=== PATIENT | female | born 1935 | race Caucasian/White ===

== ENCOUNTER 2024-05-02 20:15 | Inpatient (IN) | payer MEDICARE, OTHER, SELFPAY ==
[2024-05-02 20:18] VITALS: PULSE 78; RESP 18; O2SAT 99; BMI 32.1
--- NOTE | 2024-05-02 20:34 | XR_ITS ---
Examination: CT brain head without contrast. 2-D sagittal coronal reconstructions Date and time of exam:May 02, 2024 at 2041 hrs. Indications: Ground-level fall today with injury to the head, head pain CTDI: vol (mGy):47.8 DLP: (mGycm):994 Technique: Multiple CT axial sections of the brain have been obtained, 5 mm slice thickness. Contrast has not been administered. 2-D sagittal, coronal reconstructions have been obtained Low dose protocols were performed. One or more of the following dose reduction techniques were used; automated exposure control, adjustment of the mA and/or KV according to patient size, use of iterative reconstruction technique. Findings: No significant ventricular enlargement. Intra-axial or extra-axial hemorrhage density is not seen. No mass effect or midline shift Basal cisterns are not remarkable. Fourth ventricle is midline. Cranial vault intact. Impression: Negative for acute hemorrhage, mass effect or midline shift
--- NOTE | 2024-05-02 20:34 | XR_ITS ---
Examination:Right hip AP, lateral, AP pelvis 3 views Technique: Hip AP lateral, AP pelvis, 3 views Exam date and time:May 02, 2024 2101 hrs. Indications: Injury to the right hip after falling today, right hip pain. Findings: Acute angulated intertrochanteric fracture right hip Bones of the pelvis intact Left hip bipolar hemiarthroplasty satisfactory alignment Impression: Acute angulated intertrochanteric fracture right hip.
--- NOTE | 2024-05-02 20:34 | XR_ITS ---
Examination: CT cervical spine without contrast 2-D sagittal reconstructions 2-D coronal reconstructions 3-D reconstructions. Exam date and time:May 02, 2024 2041 hrs. Indications: Ground-level fall today with injury to the neck, neck pain CTDI:vol (mGy) 7.52 DLP: (mGycm) 147 Technique: Multiple 2 mm axial sections of the cervical spine have been obtained. The coronal and sagittal reconstructions have been obtained. 3-D reconstructions have been obtained. Low dose protocols were performed. One or more of the following dose reduction techniques were used; automated exposure control, adjustment of the mA and/or KV according to patient size, use of iterative reconstruction technique. Findings: Axial sections demonstrate intact base of the skull. Mild anterolisthesis C3 on C4, fusion C4-C5, grade 1 anterolisthesis C7 on T1 C1 exhibit satisfactory relationship to the odontoid. No acute cervical vertebral body fracture seen. Alignment posterior spinous processes satisfactory. Impression: No acute cervical fracture.
--- NOTE | 2024-05-02 20:34 | EKG_ITS ---
[facility] Test Date: 2024-05-02 Pat Name: KARAN JACINTO Department: Room: - Gender: Female Malariologist: : [id number] Requested By: Fred Padron Order Number: [id number] Reading MD: Fred Padron Measurements Intervals [place] Rate: 66 P: 91 TX: 163 QRS: 10 QRSD: 98 T: 62 QT: 414 QTc: 435 Interpretive Statements SINUS RHYTHM LEFT VENTRICULAR HYPERTROPHY AND ST-T CHANGE [VOLTAGE CRITERIA PLUS ST/T ABNORMALITY] Compared to ECG 06/18/2020 13:50:13 ST (T wave) deviation now present Supraventricular rhythm no longer present Myocardial infarct finding no longer present /store/S0/[id number]/ecg/[id number].pdf
--- NOTE | 2024-05-02 20:34 | XR_ITS ---
Examination: AP chest single view Technique one AP portable upright chest single view Exam date and time: May 02, 2024 2105 hrs. Comparison December 14, 2017 Indications: Ground-level fall today with injury to the chest, chest pain Findings: No pneumothorax Extensive interstitial disease throughout the lungs Mild to moderate enlargement cardiac contour Severe osteopenia Old fracture right humeral neck Impression: No pneumothorax Clavicles ribs appear intact Extensive abnormal interstitial disease throughout the lungs, differential is extensive include bronchitis, pneumonia, pulmonary fibrosis
[2024-05-02 20:47] LABS: Collection Type, Urine Clean Catch
--- NOTE | 2024-05-02 20:47 | PD.EDADULT ---
ED General RME/HPI General Chief complaint: Fall Stated complaint: FELL, RIGHT HIP INJURY Time Seen by Provider: 05/02/24 20:34 Arrival date/time: 05/02/24 20:15 CC: Right hip pain HPI status post fall, patient presents the ER via EMS report no blood thinners. The patient is mildly demented does not recall the event. EMS report family members stating no LOC. Patient was lifted up by family medicine placed in a chair, then with difficulty was moved from there via EMS to [facility] and transported here. Patient given 50 mcg of fentanyl and route for right hip pain. Patient is awake alert oriented to self. Nontoxic-appearing not in any acute distress. When supine and immobile no pain, however when I asked her to move her legs she is unable to secondary to severe pain. Related Data Home Medications ?Medication ?Instructions ?Recorded ?Confirmed donepezil 5 mg tablet (Aricept) 10 mg PO HS 12/16/18 06/18/20 cholecalciferol (vitamin D3) 125 125 mcg PO HS 06/18/20 06/18/20 mcg (5,000 unit) tablet (Vitamin D3) ferrous fumarate-ascorbic 1 tab PO HS 06/18/20 06/18/20 acid-ascorbate sod 65 mg iron-125 mg tablet metoprolol tartrate 25 mg tablet 25 mg PO HS 06/18/20 06/18/20 [id number]-bzj-yjuwy acid 0.4 1 tab PO HS 06/18/20 06/18/20 mg-lycopene 300 mcg-lutein 250 mcg tablet (Centrum Silver) Allergies Allergy/AdvReac Type Severity Reaction Status Date / Time No Known Allergies Allergy Verified 06/19/20 15:02 Review of Systems Review of Systems Narrative Review of Systems: GEN: No fever, no chills, no weight loss EYES: No discharge, no visual changes, no pain HEENT: No ear pain, no congestion, no sore throat PULM: No shortness of breath, no cough, no congestion CV: No chest pain, no dyspnea on exertion, no palpitations GI: No nausea, no vomiting, no diarrhea, no pain, no constipation : No frequency, no urgency, no dysuria MUSC/SKEL: + joint pain, no back pain SKIN: No rash PSYCH: No hallucinations, no depression HEME/LYMPH: No easy bleeding or bruising tendencies NEURO: No weakness, no headache Past Medical History Past Medical History NEUROLOGIC: Positive Neurological Disorders and Cerebrovascular Accident (1994); Negative Transient Ischemic Attacks (TIA) or Seizures CARDIAC: Positive Cardiac Disorders, Heart Murmur, Hypercholesterolemia and Hypertension; Negative Congestive Heart Failure RESPIRATORY: Negative Chronic Obstructive Pulmonary Disease (COPD), Asthma or Pneumonia GASTROINTESTINAL: Positive Gastrointestinal Disorders, Gall Bladder Disease (HAD SURGERY), Hiatal Hernia (HAD SURGERY) and Gastroesophageal Reflux Disease (MILD); Negative Hepatitis GENITOURINARY: Negative Genitourinary Disorders or Renal Disease REPRODUCTIVE: Positive Previous Pregnancies (X1) MUSCULOSKELETAL: Positive Musculoskeletal Disorders, Arthritis, Osteoporosis and Fractures (FUSED ANKLE. WRIST, HIP SURGERIES) ENT: Positive Cataracts (BILATERAL) ENDOCRINE: Negative Endocrine Disorders, Diabetes Mellitus Type 1 or Diabetes Mellitus Type 2 HEMATOLOGIC: Positive Blood Disorders and Anemia; Negative Sickle Cell Disease or Clotting Problems OTHER HISTORY: Positive Falls (06/10/20), Chicken Pox, Measles, Mumps and Rubella (Armenian Measles); Negative Autoimmune Disease, Blood Transfusions, Blood Transfusion Reaction, Anesthesia Reactions, Organ Transplant or Cancer Family History FAMILY HISTORY: Positive Family Cardiac Disorders, Family Gastrointestinal Problems, Family Cancer and Family Surgery; Negative Family Psychiatric Problems, Family Respiratory Disorders or Family Anesthesia Reaction Surgical History SURGICAL: Positive Joint Replacement, Open Reduction Internal Fixation (ANKLE, WRIST) and Hysterectomy; Negative Endocrine Surgery or Organ Transplant Social History SMOKING STATUS: Never smoker ED Exam Narrative Physical exam: [General: Not in any acute distress Head normocephalic HEENT: Within acceptable limits Neck is supple nontender Chest equal chest rise nontender to palpation Respiratory: Clear to auscultation no wheezes crackles or rubs CV: Rate rhythm is regular no murmurs rubs or clicks Abdomen is soft nontender no masses positive bowel sounds all 4 quadrants Back: No CVA tenderness no spinous process tenderness from cervical spine thoracic and lumbar spine Skin: Intact no petechiae rash induration ulceration or crepitus Extremities: Upon visual assessment, right leg is laterally rotated slightly shorter than the left leg. Pain with palpation of the groin area of the right hip. Cap refill in the lower extremity less than 2 seconds neurosensory intact. Moving all other extremities against resistance cap refill less than 2 seconds neurosensory intact Neuro: Awake alert oriented x2, person and place, Glascow coma 15 no focal deficits] Course Quality Measures none Orders Category Date Time Status COVID-19 Screening Questionnaire NOW Care 05/02/24 21:05 Active EKG (ED ONLY) *Do not use* NOW Care 05/02/24 20:34 Completed Holley [Urinary Catheter] QS Care 05/02/24 20:36 Active Saline [Insert IV] NOW Care 05/02/24 20:36 Active Consult to Orthopedic Stat Cons 05/02/24 21:[address] cervical spine wo con Stat Exams 05/02/24 20:[address] head/brain wo con Stat Exams 05/02/24 20:34 Completed EKG (ED Only) Stat Exams 05/02/24 20:34 Draft XR chest 1V Stat Exams 05/02/24 20:34 Taken XR femur RT 2V Stat Exams 05/02/24 21:49 Ordered XR hip RT w pelvis 2-3V Stat Exams 05/02/24 20:34 Taken B-Type Natriuretic Peptide Stat Lab 05/02/24 20:44 Completed CBC Stat Lab 05/02/24 20:44 Completed Comprehensive Metabolic Panel Stat Lab 05/02/24 20:44 Results Drug Screen,Urine Stat Lab 05/02/24 20:45 Completed LDH (Lactate Dehydrogenase) Stat Lab 05/02/24 20:44 Results Magnesium Stat Lab 05/02/24 20:44 Results Partial Thromboplastin Time Stat Lab 05/02/24 20:44 Completed Prothrombin Time with INR Stat Lab 05/02/24 20:44 Completed Troponin I Stat Lab 05/02/24 20:44 Results Urinalysis Stat Lab 05/02/24 20:45 Completed Morphine Inj Med 05/02/24 20:51 Discontinued 4 mg IVP X1 ONE Ondansetron Inj [Zofran Inj] Med 05/02/24 20:51 Discontinued 4 mg IV X1 ONE Sodium Chloride 0.9% 1000 ml [Ns] 1,000 ml Med 05/02/24 20:51 Active IV 60 mls/hr hydrALAZINE INJ [Apresoline Inj] Med 05/02/24 20:46 Discontinued 10 mg IV X1 ONE Vital Signs Vital signs: Vital Signs Temperature 98.9 F 05/02/24 21:00 Pulse Rate 76 05/02/24 21:00 Respiratory Rate 22 H 05/02/24 21:00 Blood Pressure 226/134 H 05/02/24 21:00 Pulse Oximetry (%) 94 L 05/02/24 21:00 Oxygen Delivery Method Room Air 05/02/24 21:00 [facility] Patient data External records reviewed:: [place] previous records and EMS form Clinical information provided by:: patient and EMS Social determinants that could affect healthcare access:: none Patient has the following chronic illnesses:: Hypertension dementia How is presenting disease/condition affected by chronic disease/condition?: uneffected by Evaluation data The following diagnostics were reviewed and interpreted by me:: lab results, radiology exam(s) and EKG tracing(s) Lab and/or radiology exams considered but not ordered:: EKG performed at 2119 shows a ventricular rate of 6 6 [place] interval 163 QRS of 9 8 QTc of 427 this is sinus rhythm. Right hip shows intertrochanteric fracture of the right hip. CT head and C-spine as interpreted by me read by radiology as negative for any acute finding. CBC shows no acute leukocytosis anemia thrombocytopenia Coags within acceptable limits CMP shows no acute electrolyte imbalances renal impairment glucose at 129 no transaminitis or T. bili elevation Troponin is negative BNP is 563 Urine is negative for UTI. UDS is negative Interpretation Summary: Patient is intertrochanteric fracture of the right femur. Patient's case discussed with Dr. Schaefer who agrees to consult on the patient. Patient's case discussed with resident for Dr. Braga, attending, who agrees to accept the patient for admission Medications Medications considered but not ordered:: None Medication administrations:: Medication Administration History Sodium Chloride (Ns) 1,000 mls @ 60 mls/hr IV .[id number] IVONNE Stop: 06/01/24 20:50 Last Admin: 05/02/24 21:22 Dose: 60 mls/hr Documented By: JAMAR Discontinued Medications Hydralazine HCl (Hydralazine Inj 20 Mg/Ml Vial) 10 mg IV X1 ONE Stop: 05/02/24 20:47 Last Admin: 05/02/24 21:14 Dose: 10 mg Documented By: JAMAR Comments: Morphine Sulfate (Morphine Sulf Inj 10 Mg/Ml Vial) 4 mg IVP X1 ONE Stop: 05/02/24 20:52 Last Admin: 05/02/24 21:15 Dose: 4 mg Documented By: JAMAR Ondansetron HCl (Ondansetron Inj 2 Mg/Ml Inj 2 Ml) 4 mg IV X1 ONE; Protocol Stop: 05/02/24 20:52 Last Admin: 05/02/24 21:15 Dose: 4 mg Documented By: EE None Consultations Consultation(s) initiated? (list below): Yes Consultation #1 (Physician, Specialty, Details): divine Time: 21:53 Diagnosis Differential Diagnosis ED Complaint MDM: Acetabular fracture intertrochanteric fracture femoral neck fracture Most likely diagnosis given after review of the tests above:: Intertrochanteric femoral fracture Admission Indicated Admission indicated?: indicated Explain why admission is indicated or not indicated:: Quires further orthopedic intervention Admission Request Was there a request for admission?: No Disposition Plan Disposition Plan: Admit Medical Decision Making Differential Diagnosis Differential Diagnosis: Acetabular fracture intertrochanteric fracture femoral neck fracture Lab Data 05/02/24 20:44 05/02/24 20:44 Labs: Lab Results 05/02/24 05/02/24 Range/Units 20:44 20:45 WBC 7.5 (3.6-11.0) Thou/mm3 RBC 4.44 (4.00-5.20) Miln/mm3 Hgb 13.9 (12.0-16.0) g/dL Hct 42.1 (36.0-46.0) % MCV 95 (80-100) fL MCH 31.3 (25.0-35.0) pg MCHC 33.0 (31.0-37.0) g/dl RDW Std Deviation 44.2 (36.4-46.3) fL Plt Count 201 (140-440) Thou/mm3 Neut % (Auto) 81 H (37-80) % Lymph % (Auto) 12 (10-50) % [place] % (Auto) 6 (0-12) % Eos % (Auto) 1 (0-10) % Baso % (Auto) 1 (0-2.5) % Neut # (Auto) 6.1 (1.8-7.7) Thou/mm3 Lymph # (Auto) 0.9 L (1.0-4.8) Thou/mm3 [place] # (Auto) 0.4 (0.0-0.8) Thou/mm3 Eos # (Auto) 0.1 (0.0-0.5) Thou/mm3 Baso # (Auto) 0.0 (0.0-0.2) Thou/mm3 Immature Gran # (Auto) 0.04 H (0.00-0.00) Thou/mm3 Absolute Nucleated RBC 0.00 (0.00-0.00) Thou/mm3 Immature Gran % 1 H (0-0) % Nucleated RBC % 0 (0) /100 WBC PT 11.0 (9.0-12.2) Seconds INR 1.0 (0.9-1.3) APTT 23.9 (22.0-36.0) Seconds Sodium 138 (136-145) mMol/L Potassium 4.2 (3.4-5.1) mMol/L Chloride 100 (98-107) mMol/L Carbon Dioxide 28.8 (20.0-31.0) mMol/L Anion Gap 9 (7-16) BUN 16 (9-23) mg/dL Creatinine 0.9 (0.6-1.3) mg/dL Estim Creat Clear Calc 46.3 L (>60) mL/min eGFR > 60 (60 - ) See Note BUN/Creatinine Ratio 18 (12-20) Ratio Glucose 129 H (74-106) mg/dL Calculated Osmolality 278 (275-295) Calcium 9.7 (8.3-10.6) mg/dL Corrected Calcium 9.7 (8.5-10.1) mg/dL Magnesium 2.0 (1.6-2.6) mg/dL Total Bilirubin 0.4 (0.3-1.2) mg/dL AST 25 (0-34) U/L ALT 16 (10-49) U/L Alkaline Phosphatase 69 (46-116) U/L Troponin I < 0.020 (0.0-0.045) ng/mL B-Natriuretic Peptide 563 H* (0-100) pg/mL Total Protein 7.5 (5.7-8.2) gm/dL Albumin 4.2 (3.4-4.8) gm/dL Globulin 3.3 (2.3-3.5) gm/dL Albumin/Globulin Ratio 1.3 (1.2-2.2) Ur Collection Type Clean Catch Urine Color Lt-Yellow (Lt Yel-Yel) Urine Clarity Turbid A (Clear/Hazy) Urine pH 7.5 H (5.0-7.0) Ur Specific [place] 1.016 (1.001-1.035) Urine Protein 1+ A (Neg - Trace) Urine Glucose (UA) Negative (Negative) Urine Ketones Negative (Negative) Urine Blood Negative (Negative) Urine Nitrite Positive (Negative) Urine Bilirubin Negative (Negative) Urine Urobilinogen (Auto) Negative (0.0-1.0) mg/dL Ur Leukocyte Esterase Negative (Negative) Urine RBC 7 H (0-3) /hpf Urine WBC 4 (0-5) /hpf Ur Squamous Epith Cells 1 (0-5) /hpf Urine Bacteria None (None) Urine Opiates Screen Negative (Negative) Urine Fentanyl Screen Negative (Negative) Ur Barbiturates Screen Negative (Negative) U Amphetamin/Meth Scrn Negative (Negative) U Benzodiazepines Scrn Negative (Negative) U Cocaine Metab Screen Negative (Negative) U Marijuana (THC) Screen Negative (Negative) Discharge Plan Plan Patient Disposition: Other Care w/in Hosp ([facility]) Patient condition on transfer: Stable Prescriptions/Referrals Prescriptions/Med Rec: No Action donepezil [Aricept] 5 mg Tablet 10 mg PO HS metoprolol tartrate 25 mg Tablet 25 mg PO HS Centrum Silver 0.4-300-250 mg-mcg-mcg Tablet 1 tab PO HS cholecalciferol (vitamin D3) [Vitamin D3] 125 mcg (5,000 unit) Tablet 125 mcg PO HS iron fum-vit C-ascorbate sod 65 mg iron- 125 mg Tablet 1 tab PO HS Referrals: No Primary/Family,Physician [Primary Care Provider] - In 1 week Problem List Clinical Impression: Hip fracture Patient/Caregiver Discharge Instructions Print Language: Montserratian Stand Alone Forms: Rosita Award Info., Patient Portal Info Letter PA/JALOUSIE INSTALLER Supervising Physician PA/JALOUSIE INSTALLER Supervising Physician: Fred Barcenas ENP
[2024-05-02 20:54] LABS: Bilirubin,Urine Negative (Negative); Blood,Urine Negative (Negative); Clarity,Urine Turbid (Clear/Hazy); Color,Urine Lt-Yellow (Lt Yel-Yel); Glucose, Urine Negative (Negative); Ketones,Urine Negative (Negative); Leukocyte Esterase,Urine Negative (Negative); Nitrite,Urine Positive (Negative); PH,Urine 7.5 (5.0-7.0); Protein,Urine 1+ (Neg - Trace); RBC,Urine 7 /hpf (0-3); Specific Gravity,Urine 1.016 (1.001-1.035); Squamous Epithelial Cell,Urine 1 /hpf (0-5); Urobilinogen,Urine Negative mg/dL (0.0-1.0); WBC,Urine 4 /hpf (0-5)
[2024-05-02 20:58] LABS: Amphetamine/Methamp Scrn,U Negative (Negative); Barbiturate Screen,Urine Negative (Negative); Benzodiazepines Screen,Urine Negative (Negative); Benzoylecgonine Screen, Ur Negative (Negative); Fentanyl Screen,Urine Negative (Negative); Opiate Screen,Urine Negative (Negative); THC Screen,Urine Negative (Negative)
[2024-05-02 21:00] VITALS: BP 226/134; PULSE 76; RESP 22; TEMP 37.2; O2SAT 94
[2024-05-02 21:07] LABS: Basophils % (Auto) 1 % (0-2.5); Eosinophils # (Auto) 0.1 Thou/mm3 (0.0-0.5); Eosinophils % (Auto) 1 % (0-10); Hematocrit 42.1 % (36.0-46.0); Hemoglobin 13.9 g/dL (12.0-16.0); Immature Granulocytes % (Auto) 1 % (0-0); Immature Granulocytes Auto 0.04 Thou/mm3 (0.00-0.00); Lymphocytes # (Auto) 0.9 Thou/mm3 (1.0-4.8); Lymphocytes % (Auto) 12 % (10-50); Mean Corpuscular Hemoglobin 31.3 pg (25.0-35.0); Mean Corpuscular Volume 95 fL (80-100); Monocytes # (Auto) 0.4 Thou/mm3 (0.0-0.8); Monocytes % (Auto) 6 % (0-12); Neutrophils # (Auto) 6.1 Thou/mm3 (1.8-7.7); Neutrophils % (Auto) 81 % (37-80); Nucleated Red Blood Cell % 0 /100 WBC (0); Platelet Count 201 Thou/mm3 (140-440); RDW Standard Deviation 44.2 fL (36.4-46.3); Red Blood Count 4.44 Miln/mm3 (4.00-5.20); White Blood Count 7.5 Thou/mm3 (3.6-11.0)
[2024-05-02 21:14] VITALS: BP 212/109; PULSE 65
[2024-05-02] MEDS: hydrALAZINE INJ 20 MG/ML VIAL 10 MG IV (21:14)
[2024-05-02] MEDS: ONDANSETRON INJ 2 MG/ML INJ 2 ML 4 MG IV (21:15)
[2024-05-02] MEDS: MORPHINE SULF INJ 10 MG/ML VIAL 4 MG IVP (21:15)
[2024-05-02] MEDS: SODIUM CHLORIDE 0.9% 1000 ML 1,000 ML 60 ML IV (21:22)
[2024-05-02 21:27] LABS: Partial Thromboplastin Time 23.9 Seconds (22.0-36.0)
[2024-05-02 21:32] LABS: Alanine Aminotransferase 16 U/L (10-49); Albumin, Serum 4.2 gm/dL (3.4-4.8); Albumin/Globulin Ratio 1.3 (1.2-2.2); Alkaline Phosphatase 69 U/L (46-116); Anion Gap 9 (7-16); Aspartate Amino Transferase 25 U/L (0-34); B-Type Natriuretic Peptide 563 pg/mL (0-100); BUN/Creatinine Ratio 18 Ratio (12-20); Bilirubin,Total 0.4 mg/dL (0.3-1.2); Blood Urea Nitrogen 16 mg/dL (9-23); Calcium 9.7 mg/dL (8.3-10.6); Calcium (Corrected) 9.7 mg/dL (8.5-10.1); Carbon Dioxide 28.8 mMol/L (20.0-31.0); Chloride 100 mMol/L (98-107); Creatinine (Component) 0.9 mg/dL (0.6-1.3); Estimated Creatinine Clearance 46.3 mL/min (>60); Globulin 3.3 gm/dL (2.3-3.5); Glucose 129 mg/dL (74-106); Osmolality,Calculated 278 (275-295); Potassium 4.2 mMol/L (3.4-5.1); Sodium 138 mMol/L (136-145); Total Protein 7.5 gm/dL (5.7-8.2); Troponin I < 0.020 ng/mL (0.0-0.045); eGFR > 60 See Note
--- NOTE | 2024-05-02 21:49 | XR_ITS ---
Examination: Right femur 2 views Technique one AP lateral right femur 2 views Exam date and time: May 02, 2019 9:52 PM Indications: Patient fell today with injury to the right leg, right femur pain Findings: Acute angulated intertrochanteric fracture right hip Severe osteopenia Shaft of the femur intact Impression: Acute intertrochanteric fracture right hip
--- NOTE | 2024-05-02 21:56 | XR_ITS ---
Examination: CT pelvis without intravenous contrast. 2-D sagittal and coronal reconstructions. Date and time of exam:May 02, 2024 10:40 PM Indications: Patient fell today with injury to the head, right hip pain CTDI: vol (mGy) :10.3 DLP: (mGycm) : 382 Technique: Multiple 3 mm axial sections of the pelvis have been obtained with the 64 slice high resolution scanner. 2-D sagittal and coronal reconstructions. Low dose protocols were performed. One or more of the following dose reduction techniques were used; automated exposure control, adjustment of the mA and/or KV according to patient size, use of iterative reconstruction technique. Findings: Air distended rectosigmoid Urinary bladder contracted around a Holley catheter Acute fracture right hip surgery the greater trochanter with angulation at the fracture site No offset of the lesser trochanter Fracture anterior right inferior pubic ramus and nondisplaced fracture right superior pubic ramus near the symphysis No hip dislocation Severe osteopenia Bones of the pelvis intact Impression: Acute right hip fracture Fractures superior inferior right pubic rami
--- NOTE | 2024-05-02 21:59 | XR_ITS ---
Examination: Right hip lateral single view Technique: Lateral right hip single view Exam date and time: May 02, 2024 at 2102 hrs. Indications: Patient fell today with injury to the head, head pain. Findings: Acute intertrochanteric fracture right hip No hip dislocation Impression: Acute intertrochanteric fracture right hip
[2024-05-02 22:15] VITALS: BP 181/97; PULSE 79; RESP 18; O2SAT 93
--- NOTE | 2024-05-02 22:41 | PD.RESHP ---
Documentation for date of: 05/02/24 HPI History of Present Illness History of present illness: 89-year-old female with past medical history of HTN, dementia presenting with right hip pain after a ground-level fall. The fall occurred this afternoon as she was walking around her kitchen. She doesn't remember falling but cannot recall specific details of the event. However, she does not recall tripping over an object, being dizzy or lightheaded, or fainting. She did not lose consciousness. She called for her son who came to an assisted her from the floor. Subsequently she develop right pain and decided to come in to the ED. At baseline, she is semiindependent, able to complete most of her chores including getting around the house by herself. However, sometimes, on certain days, she requires assistance by her son. She is feeling more tired than usual. Denies head trauma, headache, seizures, loc, fever, chills, chest pain, sob, palpitations, GI symptoms including abdominal pain or n/v/d/c, or urinary symptoms. She has mild dementia for which she has trouble recalling recent events but overall altered her long-term memory and baseline cognitive function is intact. She follows up with primary for blood pressure. States her blood pressure usually runs around 160/90 to 180/100 with medications. She is currently on METOPROLOL and LISINOPRIL as listed below. In the past. She has tried different doses and started antihypertensives in the past but appears to be sensitive to higher dose with blood pressure dropping substantially. ED COURSE: Afebrile, BP 226/134, HR 76, RR 22, satting 94% on room air. CBC mostly benign without leukocytosis, hemoglobinopathy and has normal platelets. Normal coag panel. Chemistry significant for GLUCOSE 129, lactic D 291, BNP 563. Orthopedic, Dr. Patton was consulted who recommended admission for surgical intervention tomorrow 05/03. PMHx: HTN, dementia. PSHx: Multiple orthopedic interventions for bilateral wrist fracture and left hip fracture. MEDS: LISINOPRIL 40 mg, METOPROLOL succinate 25 mg BID, THERACRAN 75 mg daily, DONEPEZIL 10 mg HS. ALLERGIES: NKA. FHx: Nonsignificant. SH: Denies alcohol, tobacco or drug use. Exam Vital Signs Temp Pulse Resp BP Pulse Ox O2 Del Method 98.9 F 79 18 181/97 H 93 L Room Air 05/02/24 21:00 05/02/24 22:15 05/02/24 22:15 05/02/24 22:15 05/02/24 22:15 05/02/24 22:15 Narrative Exam GENERAL Normal-appearing elderly female, no apparent distress. HEENT NCAT.?JAYRO. Oral mucosa is moist. Patent Nares NECK Supple, nontender, no thyromegaly, no meningismus, no JVD, no step offs CHEST RRR, grade 2 systolic murmur, no gallops or rubs. CTAB, no w/r/r. Symmetrical chest rise. No intercostal subcostal retraction Atraumatic, nontender, no crepitus, symmetrical expansion. ABDOMEN Soft, flat, nontender. No guarding/rebound tenderness/masses. Bowel sounds presents EXTREMITIES No edema/cyanosis.? Tenderness over right hip, no overlying skin changes or laceration, no bony deformity, limited ROM secondary to pain, intact sensation. SKIN Warm and dry, no jaundice/rashes. NEUROMUSCULAR No lumbar or midline, no CVA, no paraspinal muscle spasm or tenderness. SMITH x4, CN II-XII grossly intact. No focal neurologic deficits. PSYCHIATRY Normal mood and affect, cooperative, no SI or HI or hallucinations. Results: Labs 05/02/24 20:44 05/02/24 20:44 Labs: Short CBC 05/02/24 Range/Units 20:44 WBC 7.5 (3.6-11.0) Thou/mm3 Hgb 13.9 (12.0-16.0) g/dL Hct 42.1 (36.0-46.0) % Plt Count 201 (140-440) Thou/mm3 BMP 05/02/24 20:44 Sodium 138 Potassium 4.2 Chloride 100 Carbon Dioxide 28.8 BUN 16 Creatinine 0.9 Glucose 129 H Calcium 9.7 Cardiac Enzymes 05/02/24 Range/Units 20:44 Troponin I < 0.020 (0.0-0.045) ng/mL Liver Function 05/02/24 Range/Units 20:44 Total Bilirubin 0.4 (0.3-1.2) mg/dL AST 25 (0-34) U/L ALT 16 (10-49) U/L Alkaline Phosphatase 69 (46-116) U/L Albumin 4.2 (3.4-4.8) gm/dL Urine 05/02/24 Range/Units 20:45 Urine Color Lt-Yellow (Lt Yel-Yel) Urine Clarity Turbid A (Clear/Hazy) Urine pH 7.5 H (5.0-7.0) Ur Specific [place] 1.016 (1.001-1.035) Urine Protein 1+ A (Neg - Trace) Urine Glucose (UA) Negative (Negative) Quality Measures Quality Measures none Advance care planning discussed with:: patient and significant other Medications Home Medications and Allergies Home Medications ?Medication ?Instructions ?Recorded ?Confirmed ?Type donepezil 5 mg tablet (Aricept) 10 mg PO HS 12/16/18 06/18/20 History cholecalciferol (vitamin D3) 125 125 mcg PO HS 06/18/20 06/18/20 History mcg (5,000 unit) tablet (Vitamin D3) ferrous fumarate-ascorbic 1 tab PO HS 06/18/20 06/18/20 History acid-ascorbate sod 65 mg iron-125 mg tablet metoprolol tartrate 25 mg tablet 25 mg PO HS 06/18/20 06/18/20 History bxmrrdic-fdy-sjgsc acid 0.4 1 tab PO HS 06/18/20 06/18/20 History mg-lycopene 300 mcg-lutein 250 mcg tablet (Centrum Silver) Allergies Allergy/AdvReac Type Severity Reaction Status Date / Time No Known Allergies Allergy Verified 06/19/20 15:02 Visit Medications Sodium Chloride (Ns) 1,000 mls @ 60 mls/hr IV .[id number] [facility] Stop: 06/01/24 20:50 Last Admin: 05/02/24 21:22 Dose: 60 mls/hr Discontinued Medications Hydralazine HCl (Hydralazine Inj 20 Mg/Ml Vial) 10 mg IV X1 ONE Stop: 05/02/24 20:47 Last Admin: 05/02/24 21:14 Dose: 10 mg Morphine Sulfate (Morphine Sulf Inj 10 Mg/Ml Vial) 4 mg IVP X1 ONE Stop: 05/02/24 20:52 Last Admin: 05/02/24 21:15 Dose: 4 mg Ondansetron HCl (Ondansetron Inj 2 Mg/Ml Inj 2 Ml) 4 mg IV X1 ONE; Protocol Stop: 05/02/24 20:52 Last Admin: 05/02/24 21:15 Dose: 4 mg Assessment & Plan Plan In summary: 89 year-old female with PMHx of HTN, dementia, admitted for right hip fracture following GLF. Appreciate recommendations from ORTHO team. Intertrochanteric fracture right hip Presenting following ground-level fall that happened this afternoon the kitchen. She does not remember event clearly. However denies LOC, head trauma, dizziness, lightheadedness prior, leading or during the event. XR right femur showed intertrochanteric fracture of right hip. CT showed acute right hip fracture of superior inferior right pubic rami. Hx multiple fracture including left hip, fabián wrists. Ambulates semi-indep at home, sometime requires assistance from her son. No obvious bony deformity on laceration on exam. ? Pending XR right hip ? Pain control ? Continue NS at 75 cc/H ? ORIF with Dr. Glass on 04/27 6 in the AM. HTN Blood pressure usually runs around 160/90 to 180/100 with a 2 meds that she is on. BP historically sensitive to med changes, PCP in agreement with current regiment and current BP range. ? Continue home LISINOPRIL 40 mg daily ? Continue home METOPROLOL succinate 25 mg BID Elevated BNP BNP 563 on admission. No history of heart failure. No signs or symptoms of fluid overload, clear lung exam, no LE edema or swelling bilaterally. Most likely related to chronically elevated blood pressure. ? Consider echocardiogram Dementia, mild ? Continue home episodes of milligram HS Overactive bladder ? Continue home VIBEGRON 10 mg HS Health maintenance Diet: NPO GI prophylaxis: PROTONIX DVT prophylaxis: SCD Antibiotics: None CODE STATUS: Full code Disposition: ORIF with Dr. Glass on 05/03. Patient case was discussed with attending, Daniel Braga MD. Dori Monaco DO PGYI Attending Provider Attestation/Addendum I attest that I was physically present for the evaluation, physical examination, lab and imaging review of the patient with the residents. I discussed the case with the residents and agree with the findings and plans of care as documented above. Patient is an 89 years old female with past medical history of hypertension, dementia who presented to the ED following a ground-level fall with complaint of right hip pain. Family at bedside stated that patient did not hit her head. Patient cannot recall specific details of the fall. As per the family, patient can complete most of her ADLs herself but requires some help due to her dementia. She also stated that patient's blood pressure usually runs high and has been hard to control, had a blood pressure of 180s systolic at home today. In the ED, she was found to have blood pressure of 226/134, LDH 291 and BNP 563. X-ray hip was obtained, which showed intertrochanteric fracture of right hip. Orthopedics was contacted by ED, who recommended admission for surgical procedure. We will admit patient for management of intertrochanteric fracture of right hip, starting with IV analgesics and mild hydration. We will resume her home antihypertensives and continue to monitor closely. Bradford Braga MD
[2024-05-02 22:46] LABS: LDH (Lactate Dehydrogenase) 291 U/L (120-246)
[2024-05-02 23:54] VITALS: BP 165/88; PULSE 80
[2024-05-02] MEDS: oxyCODONE/APAP 5/325 TABLET 1 TAB PO (23:54)
[2024-05-02] MEDS: METOPROLOL SUCCINATE XL 25 MG TABCR PO (23:54)
[2024-05-02] MEDS: SODIUM CHLORIDE 0.9% 1000 ML 1,000 ML 75 ML IV (23:54)
[2024-05-03] VITALS (15 sets, daily range): BP systolic 130–179; BP diastolic 72–96; PULSE 63–75; RESP 12–18; TEMP 36.1–36.6; O2SAT 93–100; BMI 22.4
--- NOTE | 2024-05-03 00:30 | PC.NURSE ---
Pt came from ED, alert and oriented, has a villanueva draining well with bright yellow urine. Pt not in pain at this time. Pt advised to keep NPO for possible surgery in AM, verbalizes understanding.
[2024-05-03 06:24] LABS: Basophils % (Auto) 0 % (0-2.5); Eosinophils % (Auto) 0 % (0-10); Hematocrit 37.5 % (36.0-46.0); Hemoglobin 12.7 g/dL (12.0-16.0); Immature Granulocytes % (Auto) 0 % (0-0); Immature Granulocytes Auto 0.02 Thou/mm3 (0.00-0.00); Lymphocytes # (Auto) 0.4 Thou/mm3 (1.0-4.8); Lymphocytes % (Auto) 5 % (10-50); Mean Corpuscular HGB Conc 33.9 g/dl (31.0-37.0); Mean Corpuscular Hemoglobin 31.7 pg (25.0-35.0); Mean Corpuscular Volume 94 fL (80-100); Monocytes # (Auto) 0.3 Thou/mm3 (0.0-0.8); Monocytes % (Auto) 3 % (0-12); Neutrophils # (Auto) 8.3 Thou/mm3 (1.8-7.7); Neutrophils % (Auto) 92 % (37-80); Nucleated Red Blood Cell % 0 /100 WBC (0); Platelet Count 164 Thou/mm3 (140-440); RDW Standard Deviation 44.1 fL (36.4-46.3); Red Blood Count 4.01 Miln/mm3 (4.00-5.20)
[2024-05-03 06:37] LABS: Partial Thromboplastin Time 25.4 Seconds (22.0-36.0); Prothrombin Time 11.4 Seconds (9.0-12.2)
[2024-05-03 06:48] LABS: Alanine Aminotransferase 15 U/L (10-49); Albumin, Serum 3.8 gm/dL (3.4-4.8); Albumin/Globulin Ratio 1.4 (1.2-2.2); Alkaline Phosphatase 60 U/L (46-116); Anion Gap 8 (7-16); Aspartate Amino Transferase 21 U/L (0-34); BUN/Creatinine Ratio 24 Ratio (12-20); Bilirubin,Total 0.5 mg/dL (0.3-1.2); Blood Urea Nitrogen 17 mg/dL (9-23); Calcium 9.2 mg/dL (8.3-10.6); Calcium (Corrected) 9.4 mg/dL (8.5-10.1); Carbon Dioxide 27.7 mMol/L (20.0-31.0); Chloride 102 mMol/L (98-107); Creatinine (Component) 0.7 mg/dL (0.6-1.3); Estimated Creatinine Clearance 468.7 mL/min (>60); Globulin 2.8 gm/dL (2.3-3.5); Glucose 157 mg/dL (74-106); Magnesium 1.9 mg/dL (1.6-2.6); Osmolality,Calculated 280 (275-295); Phosphorous 3.7 mg/dL (2.4-5.1); Potassium 4.5 mMol/L (3.4-5.1); Sodium 138 mMol/L (136-145); Total Protein 6.6 gm/dL (5.7-8.2); eGFR > 60 See Note
--- NOTE | 2024-05-03 07:43 | PD.ORTHCON ---
HPI Consult details Reason for consultation narrative: Right hip pain History of present illness: Nancy is a pleasant 89-year-old female who is a baseline ambulator with a cane who presented with a ground-level fall yesterday. She had a fall in the kitchen. She denies any loss of consciousness or hitting her head. She reports significant right hip pain and was unable to ambulate. She was brought to the emergency room here. She was found to have a intertrochanteric fracture of the right hip. She had a prior history of a left hip fracture status post arthroplasty before. Review of Systems Review of Systems Narrative Review of Systems: Negative except as otherwise noted. She does have hypertension. Meds Home Medications and Allergies Home Medications ?Medication ?Instructions ?Recorded ?Confirmed ?Type cholecalciferol (vitamin D3) 125 125 mcg PO HS 06/18/20 06/18/20 History mcg (5,000 unit) tablet (Vitamin D3) ferrous fumarate-ascorbic 1 tab PO HS 06/18/20 06/18/20 History acid-ascorbate sod 65 mg iron-125 mg tablet thslibns-nse-tdpnh acid 0.4 1 tab PO HS 06/18/20 06/18/20 History mg-lycopene 300 mcg-lutein 250 mcg tablet (Centrum Silver) donepezil 10 mg tablet 10 mg PO HS 05/03/24 05/03/24 History lisinopril 40 mg tablet 40 mg PO QDAY 05/03/24 05/03/24 History metoprolol succinate 25 mg 25 mg PO Q12H 05/03/24 05/03/24 History tablet,extended release 24 hr vibegron 75 mg tablet (Gemtesa) 75 mg PO QDAY 05/03/24 05/03/24 History Allergies Allergy/AdvReac Type Severity Reaction Status Date / Time No Known Allergies Allergy Verified 06/19/20 15:02 Exam Vital Signs Temp Pulse Resp BP Pulse Ox O2 Del Method 97.6 F 75 18 153/89 H 93 L Room Air 05/03/24 04:00 05/03/24 04:00 05/03/24 04:00 05/03/24 04:00 05/03/24 04:00 05/03/24 04:00 Additional findings Additional findings: patient is in no acute distress Breathing is nonlabored. In no respiratory distress. Bilateral extremities were evaluated and demonstrates sensation intact to light touch. Palpable pedal pulses are present. No significant edema is present. No paraspinal tenderness is present. The left hip demonstrates no pain with logroll. Patient has flexion to 90 degrees, internal rotation to 20 degrees, external rotation to 20 degrees, abduction of 40 degrees, and adduction of 20 degrees. Patient has a negative stinchfield. The patient is nontender to palpation. right hip range of motion was not performed secondary to pain. The leg is shortened and externally rotated Results - Ortho Labs 05/03/24 06:12 05/03/24 06:12 Labs: Short CBC 05/02/24 05/03/24 Range/Units 20:44 06:12 WBC 7.5 9.0 (3.6-11.0) Thou/mm3 Hgb 13.9 12.7 (12.0-16.0) g/dL Hct 42.1 37.5 (36.0-46.0) % Plt Count 201 164 D (140-440) Thou/mm3 BMP 05/02/24 05/03/24 20:44 06:12 Sodium 138 138 Potassium 4.2 4.5 Chloride 100 102 Carbon Dioxide 28.8 27.7 BUN 16 17 Creatinine 0.9 0.7 Glucose 129 H 157 H Calcium 9.7 9.2 Cardiac Enzymes 05/02/24 Range/Units 20:44 Troponin I < 0.020 (0.0-0.045) ng/mL Liver Function 05/02/24 05/03/24 Range/Units 20:44 06:12 Total Bilirubin 0.4 0.5 (0.3-1.2) mg/dL AST 25 21 (0-34) U/L ALT 16 15 (10-49) U/L Alkaline Phosphatase 69 60 (46-116) U/L Albumin 4.2 3.8 (3.4-4.8) gm/dL Urine 05/02/24 Range/Units 20:45 Urine Color Lt-Yellow (Lt Yel-Yel) Urine Clarity Turbid A (Clear/Hazy) Urine pH 7.5 H (5.0-7.0) Ur Specific [place] 1.016 (1.001-1.035) Urine Protein 1+ A (Neg - Trace) Urine Glucose (UA) Negative (Negative) Imaging Xray: Additional comments: right hip x-rays demonstrate a intertrochanteric fracture of the right hip with some shortening Assessment & Plan Problem List (1) Intertrochanteric fracture of right hip: Status: Acute Assessment and plan: patient is an 89-year-old female with a right hip intertrochanteric fracture. We discussed nonoperative and operative options. I spoke with the niece who wants to proceed with surgery. we discussed the cephalomedullary nail and the risks including infection, malunion, nonunion, periprosthetic fracture, and screw cut out. We also discussed medical complications from surgery. I discussed with the medical team and they feel that we can proceed with surgery. - N.p.o. - plan for surgery today with a cephalomedullary nail
--- NOTE | 2024-05-03 10:23 | PC.SS ---
Addendum entered by RONA Grossman 05/03/24 10:47: SS update: plan is for surgical interventions today. Addendum entered by RONA Grossman 05/03/24 10:46: PASRR completed. LV1. Addendum entered by RONA Grossman 05/03/24 10:43: SNF inquiry sent via [employer] Original Note: Initial assessment: this is 89 year old female admitted for a hip fracture and ortho consult. The patient's son Elías assisted with providing information. Patient lives at home with mamie Mckinley. Patient is usually independent with ADL's prior to fracture. Patient has a cane at home. Patient follows Dr. Pham for primary care. Patient pharmacy is [facility]. Patient's son Elías is identified as the emergency contact. Elías informs patient will need SNF. Preferred facility is [facility]. D/c plan: SNF Next of kin: sonElías
[2024-05-03] MEDS: PANTOPRAZOLE INJ 40 MG VIAL IVP (13:06)
[2024-05-03] MEDS: SODIUM CHLORIDE 0.9% 1000 ML 1,000 ML 75 ML IV (13:06)
--- NOTE | 2024-05-03 13:45 | XR_ITS ---
Examination: Right hip 3 views Fluoroscopy Exam date and time: May 03, 2024 1737 hrs. Indications: Acute right hip fracture May 02, 2024, operative reduction internal fixation right hip fracture Findings: Operative reduction internal fixation right hip fracture Satisfactory alignment Orthopedic hardware satisfactory position Fluoroscopy 44 seconds radiation dose 4.83 milligray Impression: Operative reduction internal fixation right hip fracture with satisfactory alignment
--- NOTE | 2024-05-03 16:02 | PD.RESPRO ---
Documentation for date of: 05/03/24 Subjective Subjective Interval history: Patient seen at bedside. No acute overnight events. She is an 89-year-old female with a past medical history of hypertension and dementia who presented to the ED with right hip pain after a ground-level fall. Pelvic x-ray showed acute intertrochanteric fracture of the right hip. Ortho was consulted in the ED and recommended to admit patient for surgical intervention Scheduled for today. At bedside today, patient is doing well, has some pain but otherwise no complaints. Exam Vital Signs Temp Pulse Resp BP Pulse Ox O2 Del Method 97.0 F 63 18 137/79 H 93 L Room Air 05/03/24 12:00 05/03/24 12:00 05/03/24 12:00 05/03/24 12:00 05/03/24 12:00 05/03/24 12:00 Narrative Exam GENERAL: AAOX3 NEURO: [employer] grossly intact, moves extremities x4 HEENT: Moist mucosa. Eyes open, symmetrical, & clear CARDIO: No chest pain on palpation. Heart RRR, no obvious murmurs PULM: No noted coughing/dyspnea. Lungs CTA B/L GI: Abdomen soft, nondistended, no pain on palpation. BSx4 URO/DIRECTOR OF RESOURCE DEVELOPMENT:: No further abnormalities noted. SKIN/MSK/EXT: Right lower extremity shorter than left, externally rotated. Objective Labs 05/03/24 06:12 05/03/24 06:12 Labs: Laboratory Results - last 24 hr 05/02/24 05/02/24 05/03/24 20:44 20:45 06:12 WBC 7.5 9.0 RBC 4.44 4.01 Hgb 13.9 12.7 Hct 42.1 37.5 MCV 95 94 MCH 31.3 31.7 MCHC 33.0 33.9 RDW Std Deviation 44.2 44.1 Plt Count 201 164 D Neut % (Auto) 81 H 92 H Lymph % (Auto) 12 5 L [place] % (Auto) 6 3 Eos % (Auto) 1 0 Baso % (Auto) 1 0 Neut # (Auto) 6.1 8.3 H Lymph # (Auto) 0.9 L 0.4 L [place] # (Auto) 0.4 0.3 Eos # (Auto) 0.1 0.0 Baso # (Auto) 0.0 0.0 Immature Gran # (Auto) 0.04 H 0.02 H Absolute Nucleated RBC 0.00 0.00 Immature Gran % 1 H 0 Nucleated RBC % 0 0 PT 11.0 11.4 INR 1.0 1.0 APTT 23.9 25.4 Sodium 138 138 Potassium 4.2 4.5 Chloride 100 102 Carbon Dioxide 28.8 27.7 Anion Gap 9 8 BUN 16 17 Creatinine 0.9 0.7 Estim Creat Clear Calc 46.3 L 468.7 eGFR > 60 > 60 BUN/Creatinine Ratio 18 24 H Glucose 129 H 157 H Calculated Osmolality 278 280 Calcium 9.7 9.2 Corrected Calcium 9.7 9.4 Phosphorus 3.7 Magnesium 2.0 1.9 Total Bilirubin 0.4 0.5 AST 25 21 ALT 16 15 Alkaline Phosphatase 69 60 Lactate Dehydrogenase 291 H Troponin I < 0.020 B-Natriuretic Peptide 563 H* Total Protein 7.5 6.6 Albumin 4.2 3.8 Globulin 3.3 2.8 Albumin/Globulin Ratio 1.3 1.4 Ur Collection Type Clean Catch Urine Color Lt-Yellow Urine Clarity Turbid A Urine pH 7.5 H Ur Specific [place] 1.016 Urine Protein 1+ A Urine Glucose (UA) Negative Urine Ketones Negative Urine Blood Negative Urine Nitrite Positive Urine Bilirubin Negative Urine Urobilinogen (Auto) Negative Ur Leukocyte Esterase Negative Urine RBC 7 H Urine WBC 4 Ur Squamous Epith Cells 1 Urine Bacteria None Urine Opiates Screen Negative Urine Fentanyl Screen Negative Ur Barbiturates Screen Negative U Amphetamin/Meth Scrn Negative U Benzodiazepines Scrn Negative U Cocaine Metab Screen Negative U Marijuana (THC) Screen Negative Quality Measures Quality Measures none Advance care planning discussed with:: patient Assessment & Plan Assessment Current Active Medications: Generic Name Dose Route Start Last Admin Trade Name Freq PRN Reason Stop Dose Admin Acetaminophen 650 mg 05/02/24 22:38 Acetaminophen 325 Mg Tablet PO 06/01/24 22:37 Q6H PRN PAIN SCALE 1-3 (mild Acetaminophen 650 mg 05/02/24 22:38 Acetaminophen 325 Mg Tablet PO 06/01/24 22:37 Q6H PRN Fever >100.4 Hydrocodone Bitart/Acetaminophen 1 tab 05/02/24 22:38 Hydrocodone/Apap 10/325 Tab PO 05/07/24 22:37 Q4HR PRN PAIN SCALE 7-10 (Severe Donepezil HCl 10 mg 05/03/24 21:00 Donepezil Hcl 5 Mg Tablet PO 06/02/24 20:59 HS IVONNE Sodium Chloride 1,000 mls @ 75 mls/hr 05/02/24 22:45 05/03/24 13:06 Ns IV 06/01/24 22:44 75 mls/hr .[id number] IVONNE Administration Lisinopril 40 mg 05/03/24 09:00 05/03/24 13:02 Lisinopril 20 Mg Tablet PO 06/02/24 08:59 Not Given QDAY IVONNE Metoprolol Succinate 25 mg 05/02/24 23:15 05/03/24 13:02 Metoprolol Succinate Xl 25 Mg Tabcr PO 06/01/24 23:14 Not Given BID IVONNE Home Medication- 10 mg 05/03/24 09:00 05/03/24 13:02 Please Speak With PO 06/02/24 08:59 Not Given Patient Caregiver To DAILY IVONNE Have Rx Brought To [facility] Ondansetron HCl 4 mg 05/02/24 22:38 Ondansetron Inj 2 Mg/Ml Inj 2 Ml IV 06/01/24 22:37 Q6H PRN NAUSEA OR VOMITING Protocol Oxycodone/Acetaminophen 1 tab 05/02/24 22:38 05/02/24 23:54 Oxycodone/Apap 5/325 Tablet PO 05/07/24 22:37 1 tab Q6H PRN Administration PAIN SCALE 4-6 (Moderate Pantoprazole Sodium 40 mg 05/03/24 09:00 05/03/24 13:06 Pantoprazole Inj 40 Mg Vial IVP 06/02/24 08:59 40 mg QDAY IVONNE Administration Plan Summary: The patient is a 89 year-old female with PMHx of HTN, dementia, admitted for right hip fracture following a ground-level fall. #Acute Intertrochanteric fracture of right hip #S/P ground level fall The patient presented following ground-level fall that happened this afternoon the kitchen. She does not remember event clearly. However denies LOC, head trauma, dizziness, lightheadedness prior, leading or during the event. XR right femur showed intertrochanteric fracture of right hip and a CT showed acute right hip fracture of superior inferior right pubic rami. Ambulates semi-indep at home, sometime requires assistance from her son. No obvious bony deformity on laceration on exam. Plan: -NPO for surgery - Scheduled for ORIF ? Pain control ?Orthopedic surgery consulted, appreciate recommendations #History of HTN Blood pressure usually runs around 160/90 to 180/100 with a 2 meds that she is on. BP historically sensitive to med changes, PCP in agreement with current regiment and current BP range. Plan: ? Continue home LISINOPRIL 40 mg daily ? Continue home METOPROLOL succinate 25 mg BID #History of elevated BNP BNP 563 on admission. No history of heart failure. No signs or symptoms of fluid overload, clear lung exam, no LE edema or swelling bilaterally. Most likely related to chronically elevated blood pressure. #History of dementia, mild ? Continue donepezil HS Overactive bladder ? Continue home VIBEGRON 10 mg HS Health maintenance Diet: NPO GI prophylaxis: PROTONIX DVT prophylaxis: SCD Antibiotics: None CODE STATUS: Full code Disposition: Pending ORIF Case was discussed with Dr Crouch PGY-2 and attending physician, Dr Tayo Joseph MD PGY-1 Disclaimer: This note was dictated by speech recognition. Minor errors in tip cutter may be present due to voice recognition software. Patient examined and case discussed with the team including attending physician. Note reviewed, I agree with the care plan as documented. Ms Beckman is a 89 year-old female with PMHx of HTN, dementia, admitted for right hip fracture following a ground-level fall. R right femur showed intertrochanteric fracture of right hip and a CT showed acute right hip fracture of superior inferior right pubic rami. Orthopedic surgery Dr Glass was consulted. Plan: NPO for surgery. Off of all chemical AC, SCDs only. She is scheduled for ORIF with a cephalomedullary nail on 05/03/[address] Glass Pain control with [place] (4-6) + Morphine (7-10) - Vinicius Crouch MD, PGY 2 Disclaimer: The document below may not be free of grammatical/phonetic/typographic errors due to use of voice recognition software. This does not dissuade from the commitment to providing health care with the patient's best interest in mind. Attending Provider Attestation/Addendum I have discussed and was present for the essential components of the history, physical examination, diagnosis, and treatment plan with the resident. I agree with the patient's care as documented by the resident and amended herein by me. sIak Cr DO. Although this document has been carefully reviewed, there may still be some phonetic and other typographical errors. These errors are purely grammatical due to imperfections in the software program and should not be construed in any way to compromise the substance of the patient's medical care during this visit.
--- NOTE | 2024-05-03 16:54 | ESOP_ITS ---
Date of Procedure 05/03/24 Pre Op Diagnosis right hip intertrochanteric fracture Post Op Diagnosis right hip intertrochanteric fracture Procedure right hip cephalomedullary nail Findings intertrochanteric fracture Procedure Description Indications Patient is a pleasant 89 yo female with a ground level fall. We discussed operative treatment with a cephalomedullary nail given the intertrochanteric fracture. We Discussed nonoperative and operative options. He understands the risk of surgery, including infection, nonunion, malunion, hardware failure, and medical complications including , and would like to proceed with surgery Procedure in detail The patient was brought to the [place] table and was prepped and draped in the usual sterile fashion. We first obtained prereduction fluoroscopy films. We reduced it with traction and gentle internal rotation. Once an adequate reduction was performed, the patient was prepped and draped in usual sterile fashion. A surgical timeout was then performed. A trochanteric starting point was found and an entry wire was inserted followed by an opening reamer. We then inserted a 11 mm 130 degrees short TFNA nail into the femur and ensured that it was reduced. We then inserted a wire into the 130 degree holding the jig and try to ensure that was center center on both the AP and lateral films. We then used a drill and inserted a helical blade. We ensured on both AP and lateral fluoroscopy views that we were in good position. We then used the static interlock screw. The patient was closed in the usual sterile fashion with Vicryl and Monocryl. Patient is to be weightbearing as tolerated Plan: WBAT Resume dvt ppx PT/OT Anesthesia GETA Implants synthes [id number] TFNA, 105 helical blade. 5x38mm locking screw Pathology / specimen None Pathology comment: none Estimated Blood Loss 150 Condition Stable Disposition floor Surgeon Luc Glass MD Surgical Staff Operation Date: 05/03/24 16:45 Case Staff THERAPIST OCCUPATIONAL: Clyde Patterson RNcinder dump crane operator: Kelli Banegas
--- NOTE | 2024-05-03 16:56 | XR_ITS ---
Examination: Right hip AP, lateral, AP pelvis 3 views Technique: Hip AP lateral, AP pelvis, 3 views Exam date and time:May 03, 2024 1747 hrs. Indications: Postop reduction internal fixation right hip fracture Findings: Postop reduction internal fixation right hip fracture with satisfactory alignment Orthopedic hardware satisfactory position Severe osteopenia Left hip bipolar hemiarthroplasty with satisfactory alignment Impression: Postop reduction internal fixation right hip fracture with satisfactory alignment.
--- NOTE | 2024-05-03 17:18 | SUR.PHASEI ---
pt arrived to PACU via gurney drowsy but arouses to voice, breathing unlabored, dressing to right hip clean, dry, and intact, report from Jasmin VASQUES and Clyde MAYO
--- NOTE | 2024-05-03 17:41 | SUR.PHASEI ---
pt tolerating ice chips without difficulty swallowing or n/v
--- NOTE | 2024-05-03 18:03 | SUR.PHASEI ---
pt awake, alert, able to follow commands, breathing unlabored, vitals stable, dressing to right hip clean, dry, and intact, report called to Lena VASQUES, pt states I feel great , pt transferred to room at this time.
[2024-05-03] MEDS: METOPROLOL SUCCINATE XL 25 MG TABCR PO (20:38)
[2024-05-03] MEDS: DONEPEZIL HCL 5 MG TABLET 10 MG PO (20:38)
[2024-05-04] VITALS (9 sets, daily range): BP systolic 97–149; BP diastolic 69–94; PULSE 65–95; RESP 16–18; TEMP 36–36.6; O2SAT 92–96; BMI 12.0
--- NOTE | 2024-05-04 04:12 | PC.NURSE ---
villanueva catheter removed at 0405. Patient tolerated well.
[2024-05-04 05:45] LABS: Basophils % (Auto) 0 % (0-2.5); Eosinophils % (Auto) 0 % (0-10); Hematocrit 30.3 % (36.0-46.0); Hemoglobin 10.2 g/dL (12.0-16.0); Immature Granulocytes % (Auto) 0 % (0-0); Immature Granulocytes Auto 0.03 Thou/mm3 (0.00-0.00); Lymphocytes # (Auto) 0.7 Thou/mm3 (1.0-4.8); Lymphocytes % (Auto) 7 % (10-50); Mean Corpuscular HGB Conc 33.7 g/dl (31.0-37.0); Mean Corpuscular Hemoglobin 31.9 pg (25.0-35.0); Mean Corpuscular Volume 95 fL (80-100); Monocytes # (Auto) 0.8 Thou/mm3 (0.0-0.8); Monocytes % (Auto) 9 % (0-12); Neutrophils # (Auto) 7.7 Thou/mm3 (1.8-7.7); Neutrophils % (Auto) 84 % (37-80); Nucleated Red Blood Cell % 0 /100 WBC (0); Platelet Count 156 Thou/mm3 (140-440); RDW Standard Deviation 45.2 fL (36.4-46.3); White Blood Count 9.2 Thou/mm3 (3.6-11.0)
[2024-05-04 06:18] LABS: Alanine Aminotransferase 10 U/L (10-49); Albumin, Serum 3.2 gm/dL (3.4-4.8); Albumin/Globulin Ratio 1.3 (1.2-2.2); Alkaline Phosphatase 50 U/L (46-116); Anion Gap 7 (7-16); Aspartate Amino Transferase 20 U/L (0-34); BUN/Creatinine Ratio 29 Ratio (12-20); Bilirubin,Total 0.5 mg/dL (0.3-1.2); Blood Urea Nitrogen 26 mg/dL (9-23); Calcium 8.4 mg/dL (8.3-10.6); Carbon Dioxide 27.6 mMol/L (20.0-31.0); Chloride 104 mMol/L (98-107); Creatinine (Component) 0.9 mg/dL (0.6-1.3); Estimated Creatinine Clearance 364.5 mL/min (>60); Globulin 2.4 gm/dL (2.3-3.5); Glucose 118 mg/dL (74-106); Osmolality,Calculated 283 (275-295); Potassium 4.5 mMol/L (3.4-5.1); Sodium 139 mMol/L (136-145); Total Protein 5.6 gm/dL (5.7-8.2); eGFR > 60 See Note
[2024-05-04] MEDS: POLYETHYLENE GLYCOL 17 GM PACKET PO (09:03)
[2024-05-04] MEDS: PANTOPRAZOLE INJ 40 MG VIAL IVP (09:03)
[2024-05-04] MEDS: Lisinopril 20 MG TABLET 40 MG PO (09:04)
[2024-05-04] MEDS: MORPHINE SULF INJ 10 MG/ML VIAL 2 MG IVP (09:04)
[2024-05-04] MEDS: METOPROLOL SUCCINATE XL 25 MG TABCR PO ×2 (09:05→20:41)
--- NOTE | 2024-05-04 09:31 | ECHO_ITS ---
Transthoracic Echo Report Ht (in): 67 Wt (lb): 167 Exam Location: Echo Lab Status: Inpatient Splicing Technician: SARAN Joshi^^^^ Indications: Procedure Performed: BP: 140 / 71 HR: 110 Technical Quality: Fair MEASUREMENTS (Male / Female) Normal Values 2D ECHO LV Diastolic Diameter PLAX 3.3 cm 4.2 - 5.9 / 3.9 - 5.3 cm LV Systolic Diameter PLAX 2.3 cm IVS Diastolic Thickness 1.5 cm 0.6 - 1.0 / 0.6 - 0.9 cm LVPW Diastolic Thickness 1.3 cm 0.6 - 1.0 / 0.6 - 0.9 cm LVOT Diameter 1.4 cm Aortic Root Diameter 3.3 cm LA Systolic Diameter LX 2.9 cm 3.0 - 4.0 / 2.7 - 3.8 cm LV Ejection Fraction MOD 4C 63.4 % LV Ejection Fraction MOD 2C 61.7 % Ascending Aorta Diameter 3.6 cm DOPPLER AV Peak Velocity 421.8 cm/s AV Peak Gradient 71.0 mmHg AV Mean Gradient 46.7 mmHg AV Velocity Time Integral 67.6 cm AI Peak Velocity 386.0 cm/s AI Peak Gradient 60.0 mmHg AI Pressure Half Time 380.0 ms LVOT Peak Velocity 138.0 cm/s LVOT Peak Gradient 8.0 mmHg LVOT Velocity Time Integral 31.5 cm AV Area Cont Eq vti 0.7 cm? AV Area Cont Eq pk 0.5 cm? MV Peak Velocity 138.0 cm/s MV Peak Gradient 8.0 mmHg MV Mean Velocity 86.5 cm/s MV Mean Gradient 3.0 mmHg MV Area PHT 3.6 cm? MR Peak Velocity 378.0 cm/s MR Peak Gradient 57.0 mmHg Mitral E Point Velocity 82.8 cm/s Mitral A Point Velocity 54.5 cm/s Mitral E to A Ratio 1.5 LV E' Lateral Velocity 8.5 cm/s Mitral E to LV E' Lateral Ratio 9.7 LV E' Septal Velocity 6.0 cm/s Mitral E to LV E' Septal Ratio 13.8 TR Peak Velocity 310.0 cm/s TR Peak Gradient 38.0 mmHg PV Peak Velocity 128.0 cm/s PV Peak Gradient 7.0 mmHg RVOT Peak Velocity 64.3 cm/s FINDINGS Left Ventricle There is moderate concentric left ventricular hypertrophy. There is grade III diastolic dysfunction of the left ventricle (restrictive filling pattern). The left ventricular ejection fraction is normal, estimated at 55-60%. Right Ventricle The right ventricular systolic function is mildly decreased. Estimated right ventricular systolic pressure is moderately elevated, 55 mmHg. Left Atrium Mildly increased left atrial volume 45.5 mL/m?. Right Atrium The right atrial cavity size is mildly increased. Atrial Septum The interatrial septum appears normal with no evidence of a shunt. Aorta The aorta is normal by two-dimensional, color flow and Doppler interrogation. Mitral Valve Mild thickening of the mitral valve leaflets. Moderate mitral annular calcification. [id number] mitral regurgitation. Aortic Valve Severe aortic valve stenosis, mean gradient 46.7 mmHg, YANCY 0.72 cm?. Mild aortic valve regurgitation.severe thickening of the aortic valve leaflets. Diffuse calcification of the aortic valve. Tricuspid Valve There is moderate tricuspid regurgitation. Pulmonic Valve Mild pulmonic valve regurgitation. Vessels The pulmonary artery appears normal. The inferior vena cava pulmonary and hepatic veins appear normal. Pericardium The pericardium is normal by two-dimensional imaging. There is no significant pericardial effusion. CONCLUSIONS Indication: Systolic murmur-aortic stenosis rule out Severe aortic stenosis noted with severely calcified aortic valve. V-max of 4.9 m/s, mean PG of 70 mmHg and aortic valve area of 0.5 cm?. Max PG is 95 mmHg. Trace to mild AI. LV function appears to be normal at 55 to 60%. Moderate LVH. Diastolic dysfunction stage I. Normal RV size and function. Moderately increased RVSP at 55 mmHg. LV appears normal with mild-mod LVH. EF is 55-60% Diastolic dysfunction is present. RV appears reduced in function with RVSP moderately increased RVSP 55 mmHg Moderately dilated LA and mildly dilated RA. Moderate MAC with mild to moderate MR. Moderate TR. Moderately elevated RVSP at 55 mmHg. No pericardial effusion. Ezekiel Vizcarra (Electronically Signed) Final Date: 04 May 2024 14:34
[2024-05-04] MEDS: APIXABAN 2.5 MG TABLET PO ×2 (12:36→20:41)
--- NOTE | 2024-05-04 14:29 | PC.SS ---
SS update: [facility] willing to accept the patient. Booked on [employer]. Pending Dr. Glass recomendations.
--- NOTE | 2024-05-04 15:52 | ESPR_ITS ---
Documentation for date of: 05/04/24 Subjective Subjective Interval history: Patient was seen and examined at bedside. No acute overnight events. Patient underwent ORIF yesterday, today's postoperative day 1. Her pain is well- controlled. Patient was started on Eliquis 2.5 mg twice daily for DVT prophylaxis. She is working with physical therapy. Echo was done showing severe . Will continue current management and monitor patient, possible discharge tomorrow. Exam Vital Signs Temp Pulse Resp BP Pulse Ox O2 Del Method O2 Flow Rate 96.8 F 70 17 97/76 92 L Room Air 2 05/04/24 12:00 05/04/24 12:00 05/04/24 12:00 05/04/24 12:00 05/04/24 12:05/04/24 12:05/04/24 04:00 Narrative Exam Gen: Well-developed and well-nourished elderly female. HEENT: NCAT, PERRLA, EOMI, MMM, anicteric conjunctivae. CVS: normal S1 and S2. RRR. Loud holosystolic murmur mostly pronounced over aortic area. Resp: CTA B/L. No rhonchi, rales, crackles or wheezing. Abd: soft, non-tender, non-distended. BS+ in all 4 quadrants. MSK: Good ROM in BUE & LLE. No edema or rash. Right hip is in bandage and appears clean. Neuro: CN II-XII grossly intact. Strength 5/5 in BUE & LLE. Alert and oriented x3. Psych: appropriate mood and affect. Objective Labs 05/04/24 04:44 05/04/24 04:44 Labs: Laboratory Results - last 24 hr 05/04/24 04:44 WBC 9.2 RBC 3.20 L Hgb 10.2 L D Hct 30.3 L MCV 95 MCH 31.9 MCHC 33.7 RDW Std Deviation 45.2 Plt Count 156 Neut % (Auto) 84 H Lymph % (Auto) 7 L [place] % (Auto) 9 Eos % (Auto) 0 Baso % (Auto) 0 Neut # (Auto) 7.7 Lymph # (Auto) 0.7 L [place] # (Auto) 0.8 Eos # (Auto) 0.0 Baso # (Auto) 0.0 Immature Gran # (Auto) 0.03 H Absolute Nucleated RBC 0.00 Immature Gran % 0 Nucleated RBC % 0 Sodium 139 Potassium 4.5 Chloride 104 Carbon Dioxide 27.6 Anion Gap 7 BUN 26 H Creatinine 0.9 Estim Creat Clear Calc 364.5 eGFR > 60 BUN/Creatinine Ratio 29 H Glucose 118 H Calculated Osmolality 283 Calcium 8.4 Corrected Calcium 9.0 Phosphorus 4.0 Magnesium 2.0 Total Bilirubin 0.5 AST 20 ALT 10 Alkaline Phosphatase 50 Total Protein 5.6 L Albumin 3.2 L D Globulin 2.4 Albumin/Globulin Ratio 1.3 Quality Measures Quality Measures VTE prophylaxis Advance care planning discussed with:: patient Assessment & Plan Assessment Current Active Medications: Generic Name Dose Route Start Last Admin Trade Name Freq PRN Reason Stop Dose Admin Acetaminophen 650 mg 05/02/24 22:38 Acetaminophen 325 Mg Tablet PO 06/01/24 22:37 Q6H PRN PAIN SCALE 1-3 (mild Acetaminophen 650 mg 05/02/24 22:38 Acetaminophen 325 Mg Tablet PO 06/01/24 22:37 Q6H PRN Fever >100.4 Hydrocodone Bitart/Acetaminophen 1 tab 05/04/24 08:41 Hydrocodone/Apap 5/325 Tablet PO 05/08/24 16:35 Q4HR PRN SEVERE BREAKTHRU PAIN Apixaban 2.5 mg 05/04/24 10:45 05/04/24 12:36 Apixaban 2.5 Mg Tablet PO 06/03/24 10:44 2.5 mg BID IVONNE Administration Donepezil HCl 10 mg 05/03/24 21:00 05/03/24 20:38 Donepezil Hcl 5 Mg Tablet PO 06/02/24 20:59 10 mg HS IVONNE Administration Sodium Chloride 1,000 mls @ 75 mls/hr 05/02/24 22:45 05/03/24 13:06 Ns IV 06/01/24 22:44 75 mls/hr .[id number] IVONNE Administration Lisinopril 40 mg 05/03/24 09:00 05/04/24 09:04 Lisinopril 20 Mg Tablet PO 06/02/24 08:59 40 mg QDAY IVONNE Administration Metoprolol Succinate 25 mg 05/02/24 23:15 05/04/24 09:05 Metoprolol Succinate Xl 25 Mg Tabcr PO 06/01/24 23:14 25 mg BID IVONNE Administration Morphine Sulfate 2 mg 05/03/24 16:36 05/04/24 09:04 Morphine Sulf Inj 10 Mg/Ml Vial IVP 05/08/24 16:35 2 mg Q4HR PRN Administration Pain 7-10 Home Medication- 10 mg 05/03/24 09:00 05/04/24 12:31 Please Speak With PO 06/02/24 08:59 Not Given Patient Caregiver To DAILY IVONNE Have Rx Brought To [facility] Ondansetron HCl 4 mg 05/02/24 22:38 Ondansetron Inj 2 Mg/Ml Inj 2 Ml IV 06/01/24 22:37 Q6H PRN NAUSEA OR VOMITING Protocol Oxycodone/Acetaminophen 1 tab 05/02/24 22:38 05/02/24 23:54 Oxycodone/Apap 5/325 Tablet PO 05/07/24 22:37 1 tab Q6H PRN Administration PAIN SCALE 4-6 (Moderate Pantoprazole Sodium 40 mg 05/03/24 09:00 05/04/24 09:03 Pantoprazole Inj 40 Mg Vial IVP 06/02/24 08:59 40 mg QDAY IVONNE Administration Plan The patient is a 89 year-old female with PMHx of HTN, dementia, admitted for right hip fracture following a ground-level fall. #Acute Intertrochanteric fracture of right hip s/p ORIF, post op day 1. #S/P ground level fall. The patient presented following ground-level fall that happened this afternoon the kitchen. She does not remember event clearly. However denies LOC, head trauma, dizziness, lightheadedness prior, leading or during the event. XR right femur showed intertrochanteric fracture of right hip and a CT showed acute right hip fracture of superior inferior right pubic rami. Ambulates semi-indep at home, sometime requires assistance from her son. No obvious bony deformity on laceration on exam. Plan: - Eliquis for DVT prophylaxis. - physical therapy. ? Pain control. ? Orthopedic surgery consulted, appreciate recommendations. #Severe aortic stenosis. 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 #History of HTN. BNP 563 on admission. No history of heart failure. No signs or symptoms of fluid overload, clear lung exam, no LE edema or swelling bilaterally. Echo showed severe , Diastolic dysfunction stage I, EF 55 to 60% Plan: ? Continue home LISINOPRIL 40 mg daily ? Continue home METOPROLOL succinate 25 mg BID - cardiology consulted. #History of dementia, mild. ? Continue donepezil HS. #Overactive bladder. ? Continue home VIBEGRON 10 mg HS. Health maintenance: Diet: regular. GI prophylaxis: PROTONIX DVT prophylaxis: Eliqius. Antibiotics: None CODE STATUS: Full code Disposition: Post op day 1. Plan of care discussed with attending Dr. Cr. Vince Dowell MD, PGY 2. Disclaimer: This note was dictated by speech recognition. Minor errors in railroad passenger agent may be present due to voice recognition software. Attending Provider Attestation/Addendum I have discussed and was present for the essential components of the history, physical examination, diagnosis, and treatment plan with the resident. I agree with the patient's care as documented by the resident and amended herein by me. Isak Cr DO. Although this document has been carefully reviewed, there may still be some phonetic and other typographical errors. These errors are purely grammatical due to imperfections in the software program and should not be construed in any way to compromise the substance of the patient's medical care during this visit.
--- NOTE | 2024-05-04 17:29 | ESCONSULT_ITS ---
<Statement entered by Ezekiel Vizcarra MD - 05/05/24 06:37> I have personally seen and examined the patient separately on the above date of service and discussed the plan of care with the resident. I reviewed the resident Dr. Gerson Yeager consultation progress note and agree with the resident findings and plan in the note above and have also edited the documentation to reflect my findings and plan. 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 Patient apparently had a mechanical fall after tripping over an object and she denied any kind of dizziness lightheadedness or further complaints. Continue current chest pain chest pressure or shortness of breath or orthopnea or PND. She did not complain of any leg swelling or PND. Patient did have surgery for acute intertrochanteric fracture of the right hip status post ORIF by orthopedics. No major postoperative complications. She was started on Eliquis 2.5 mg twice daily for DVT prophylaxis. Later patient. At baseline patient apparently walks with assistance of cane and patient is independent mostly and has most of her ADLs without major health but son helps with her IADLs. Patient denies any kind of major health problems except that she has hypertension and does only see a primary doctor and has not seen a electronics commodity manager. Patient denies any smoking or alcohol or drug abuse. 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 She is fairly healthy without any other major comorbidities except for the recent fall and fracture. EKG on admission 05/02/2024 showed normal sinus rhythm with LVH strain pattern without any acute ST-T changes suggestive of any ischemia. Labs during the admission reviewed and hemoglobin decreased from 13 to 9.0 after the surgery. BMP reviewed and showed's mild dehydration with BUN of 26 and creatinine of 0.9. BMP was 563. Troponin was negative. Total cholesterol 202, HDL 62 and LDL 124 TSH normal at 1.2. No recent A1c. Echo was ordered by the primary team which showed severe aortic stenosis and cardiology consulted for further evaluation. Assessment and plan: 1. Severe aortic stenosis 2. HFpEF/ diastolic congestive heart failure -euvolemic 3. Right hip fracture status post ORIF. 4. Uncontrolled hypertension 5. Mechanical fall 6. Anemia status post acute blood loss from the surgery 7. 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 Urinary incontinence with overactive bladder 9. Mild ALISE-prerenal Prescription patient presented systolic murmur in the aortic area and the echo was ordered. Echo from 05/05/2024 which showed Severe aortic stenosis noted with severely calcified aortic valve. V-max of 4.9 m/s, mean PG of 70 mmHg and aortic valve area of 0.5 cm?. Max PG is 95 mmHg. Trace to mild AI. LV function appears to be normal at 55 to 60%. Moderate LVH. Diastolic dysfunction stage I. Normal RV size and function. Moderately increased RVSP at 55 mmHg. Moderately dilated LA and mildly dilated RA. Moderate MAC with mild to moderate MR.Moderate TR. No pericardial effusion New diagnosis of the severe aortic stenosis and patient unaware of the diagnosis. Patient denies any kind of previous syncope or any admissions for heart failure and has been doing well.. As noted in the history patient is fairly active and walks with the help of cane and able to do her ADLs without any major issues. Patient answered all the questions appropriately and she probably only has mild cognitive deficiency with occasional memory issues and not much dementia. Patient has severe/critical aortic stenosis with V-max of almost close to 5 m/s with a mean gradient of 95 mmHg and mean gradient close to 70 mmHg and valve area less than 0.5 cm? and will need aortic valve replacement. Given her age patient is mostly not a candidate for surgical aortic valve replacement and will need possible TAVR and will start workup for the same. To evaluate her candidacy for both procedures patient will need a left and right cardiac catheterization, CT TAVR as well as cardiothoracic surgery consult which can be arranged as outpatient. Patient presently in the hospital after the acute right hip fracture and will need time to recover from the same and also is on anticoagulation Eliquis 2.5 mg twice daily for DVT prophylaxis. Patient explained the risk benefits and alternatives of and the aortic valve replacements for both procedures and patient is willing to undergo further workup for the same. Recommended to follow-up from the rehab and inform the primary team to make sure patient does have a follow-up in the next 1 to 2 weeks in the clinic. HFpEF-EF of 55 to 60%. Patient denies any kind of history of heart failure previously. Diagnosis based on echocardiogram findings. BNP was elevated at 530 but patient does not appear to be fluid overloaded at the present point of time and is probably hypovolemic secondary to the blood loss with hemoglobin at 9.0. Strict input output Daily weights and 2 g sodium diet. Uncontrolled hypertension-patient on lisinopril 40 mg once daily and metoprolol XL 25 mg twice daily at home and recommend to continue and the goal systolic blood pressure around 130-140 mmHg. Will continue to adjust medications. Anemia-acute anemia as a hemoglobin was 13 on admission and now at 9. Mostly secondary to the blood loss from the recent right hip surgery. Recommend to continue to closely monitor the hemoglobin and keep hemoglobin between 9-10. Transfuse as needed. Patient should be discharged on ferrous sulfate 325 mg once daily for her acute anemia as she will need further cardiac procedures as mentioned above. Management of rest of the medical conditions as per primary team and other consultants. Thank you for the consult and allowing me to participate in the care of the patient. Cardiology will continue to follow. Ezekiel Vizcarra M.D. Interventional Cardiology HPI Data of Consult Requesting Physician: Bruce Cr DO Admitting Provider: Bradford Braga MD Attending Provider: Bruce Cr DO Primary Care Provider: Physician No Primary/Family Consult Narrative Reason for consult: Severe aortic stenosis History of present illness: 89-year-old female with past medical history of HTN, dementia presenting with right hip pain after a ground-level fall. The fall occurred in the afternoon as she was walking around her kitchen. She doesn't remember falling but cannot recall specific details of the event. However, she does not recall tripping over an object, being dizzy or lightheaded, or fainting. She did not lose consciousness. She called for her son who came to an assisted her from the floor. Subsequently she develop right pain and decided to come in to the ED. At baseline, she is semi-independent, able to complete most of her chores including getting around the house by herself. However, sometimes, on certain days, she requires assistance by her son. She is feeling more tired than usual. Denies head trauma, headache, seizures, loc, fever, chills, chest pain, sob, palpitations, GI symptoms including abdominal pain or n/v/d/c, or urinary symptoms. She has mild dementia for which she has trouble recalling recent events but overall altered her long-term memory and baseline cognitive function is intact. She follows up with primary for blood pressure. States her blood pressure usually runs around 160/90 to 180/100 with medications. She is currently on METOPROLOL and LISINOPRIL as listed below. In the past. She has tried different doses and started antihypertensives in the past but appears to be sensitive to higher dose with blood pressure dropping substantially. ED COURSE: Afebrile, BP 226/134, HR 76, RR 22, satting 94% on room air. CBC mostly benign without leukocytosis, hemoglobinopathy and has normal platelets. Normal coag panel. Chemistry significant for GLUCOSE 129, lactic D 291, BNP 563. Orthopedic, Dr. Patton was consulted, surgical intervention performed 05/03, well- tolerated without complications. Following surgery, physical exam patient had severe aortic systolic murmur. Echocardiogram was performed which confirmed severe aortic stenosis. Cardiology consulted for severe aortic stenosis. Patient seen and examined at bedside. Patient is postop, complains of mild right hip pain on palpation. Denies chest pain, shortness of breath, orthopnea, lightheadedness, dizziness, fatigue. Denies any limitation in normal activities prior to fall and hip fracture. Labs showed WBC 9.2, hemoglobin 10.2, sodium 139, potassium 4.5, magnesium 2.0. Please keep potassium greater than 4.0, magnesium greater than 2.0. BUN 26, creatinine 0.9, EGFR greater than 60. Patient had echocardiogram which showed severe aortic stenosis with severely calcified aortic valve. V-max of 4.9 m/s, mean PG of 70 mmHg and aortic valve area of 0.5 cm?. Max PG is 95 mmHg. Trace to mild AI. Patient is unlikely to be candidate for open heart valve replacement, likely candidate for TAVR for quality of life. Patient needs to follow-up with cardiology after discharge for further evaluation of potential TAVR. cc:: cc: Bruce Cr DO Review of Systems Review of Systems Systems Reviewed: All systems reviewed, normal except as documented Past Medical History Past Medical History NEUROLOGIC: Positive Neurological Disorders and Cerebrovascular Accident (1994); Negative Transient Ischemic Attacks (TIA) or Seizures CARDIAC: Positive Cardiac Disorders, Heart Murmur, Hypercholesterolemia and Hypertension; Negative Congestive Heart Failure RESPIRATORY: Negative Chronic Obstructive Pulmonary Disease (COPD), Asthma or Pneumonia GASTROINTESTINAL: Positive Gastrointestinal Disorders, Gall Bladder Disease (HAD SURGERY), Hiatal Hernia (HAD SURGERY) and Gastroesophageal Reflux Disease (MILD); Negative Hepatitis GENITOURINARY: Negative Genitourinary Disorders or Renal Disease REPRODUCTIVE: Positive Previous Pregnancies (X1) MUSCULOSKELETAL: Positive Musculoskeletal Disorders, Arthritis, Osteoporosis and Fractures (FUSED ANKLE. WRIST, HIP SURGERIES) ENT: Positive Cataracts (BILATERAL) ENDOCRINE: Negative Endocrine Disorders, Diabetes Mellitus Type 1 or Diabetes Mellitus Type 2 HEMATOLOGIC: Positive Blood Disorders and Anemia; Negative Sickle Cell Disease or Clotting Problems OTHER HISTORY: Positive Falls (06/10/20), Chicken Pox, Measles, Mumps and Rubella (Bel[place] Measles); Negative Autoimmune Disease, Blood Transfusions, Blood Transfusion Reaction, Anesthesia Reactions, Organ Transplant or Cancer Family History FAMILY HISTORY: Positive Family Cardiac Disorders, Family Gastrointestinal Problems, Family Cancer and Family Surgery; Negative Family Psychiatric Problems, Family Respiratory Disorders or Family Anesthesia Reaction Surgical History SURGICAL: Positive Joint Replacement, Open Reduction Internal Fixation (ANKLE, WRIST) and Hysterectomy; Negative Endocrine Surgery or Organ Transplant Social History SMOKING STATUS: Never smoker Past Medical History Comments PMH COMMENT: PMHx: HTN, dementia. PSHx: Multiple orthopedic interventions for bilateral wrist fracture and left hip fracture. MEDS: LISINOPRIL 40 mg, METOPROLOL succinate 25 mg BID, THERACRAN 75 mg daily, DONEPEZIL 10 mg HS. ALLERGIES: NKA. FHx: Nonsignificant. SH: Denies alcohol, tobacco or drug use. Exam Vital Signs Temp Pulse Resp BP Pulse Ox O2 Del Method O2 Flow Rate 97.1 F 89 17 133/88 H 94 L Room Air 2 05/04/24 16:00 05/04/24 16:05/04/24 16:05/04/24 16:05/04/24 16:05/04/24 16:05/04/24 04:00 Narrative Exam Gen: Well-developed and well-nourished elderly female. HEENT: NCAT, PERRLA, EOMI, MMM, anicteric conjunctivae. CVS: normal S1 and S2. RRR. Loud holosystolic murmur mostly pronounced over aortic area. Resp: CTA B/L. No rhonchi, rales, crackles or wheezing. Abd: soft, non-tender, non-distended. BS+ in all 4 quadrants. MSK: Good ROM in BUE & LLE. No edema or rash. Right hip is in bandage and appears clean, mild tenderness to palpation. Neuro: CN II-XII grossly intact. Strength 5/5 in BUE & LLE. Alert and oriented x3. Psych: appropriate mood and affect. Results Labs 05/04/24 04:44 05/04/24 04:44 Labs: Short CBC 05/04/24 Range/Units 04:44 WBC 9.2 (3.6-11.0) Thou/mm3 Hgb 10.2 L D (12.0-16.0) g/dL Hct 30.3 L (36.0-46.0) % Plt Count 156 (140-440) Thou/mm3 BMP 05/04/24 04:44 Sodium 139 Potassium 4.5 Chloride 104 Carbon Dioxide 27.6 BUN 26 H Creatinine 0.9 Glucose 118 H Calcium 8.4 Liver Function 05/04/24 Range/Units 04:44 Total Bilirubin 0.5 (0.3-1.2) mg/dL AST 20 (0-34) U/L ALT 10 (10-49) U/L Alkaline Phosphatase 50 (46-116) U/L Albumin 3.2 L D (3.4-4.8) gm/dL Quality Measures Quality Measures VTE prophylaxis Advance care planning discussed with:: patient Medications Home Medications and Allergies Home Medications ?Medication ?Instructions ?Recorded ?Confirmed ?Type cholecalciferol (vitamin D3) 125 125 mcg PO HS 1 06/18/20 History mcg (5,000 unit) tablet (Vitamin D3) ferrous fumarate-ascorbic 1 tab PO HS 06/18/20 1 History acid-ascorbate sod 65 mg iron-125 mg tablet [id number] acid 0.4 1 tab PO HS 06/18/2006/18 History mg-lycopene 300 mcg-lutein 250 mcg tablet (Centrum Silver) donepezil 10 mg tablet 10 mg PO HS 05/03/24 5 History lisinopril 40 mg tablet 40 mg PO QDAY 05/03/2405/03 History metoprolol succinate 25 mg 25 mg PO Q12H 05/03/2404/09 History tablet,extended release 24 hr vibegron 75 mg tablet (Gemtesa) 75 mg PO QDAY 05/03/24 05/03/24 History Allergies Allergy/AdvReac Type Severity Reaction Status Date / Time No Known Allergies Allergy Verified 06/19/20 15:02 Visit Medications Acetaminophen (Acetaminophen 325 Mg Tablet) 650 mg PO Q6H PRN PRN Reason: PAIN SCALE 1-3 (mild Stop: 06/01/24 22:37 Acetaminophen (Acetaminophen 325 Mg Tablet) 650 mg PO Q6H PRN PRN Reason: Fever >100.4 Stop: 06/01/24 22:37 Hydrocodone Bitart/Acetaminophen (Hydrocodone/Apap 5/325 Tablet) 1 tab PO Q4HR PRN PRN Reason: SEVERE BREAKTHRU PAIN Stop: 05/08/24 16:35 Apixaban (Apixaban 2.5 Mg Tablet) 2.5 mg PO BID [facility] Stop: 06/03/24 10:44 Last Admin: 05/04/24 12:36 Dose: 2.5 mg Donepezil HCl (Donepezil Hcl 5 Mg Tablet) 10 mg PO HS [facility] Stop: 06/02/24 20:59 Last Admin: 05/03/24 20:38 Dose: 10 mg Sodium Chloride (Ns) 1,000 mls @ 75 mls/hr IV .[id number] [facility] Stop: 06/01/24 22:44 Last Admin: 05/03/24 13:06 Dose: 75 mls/hr Lisinopril (Lisinopril 20 Mg Tablet) 40 mg PO QDAY [facility] Stop: 06/02/24 08:59 Last Admin: 05/04/24 09:04 Dose: 40 mg Metoprolol Succinate (Metoprolol Succinate Xl 25 Mg Tabcr) 25 mg PO BID [facility] Stop: 06/01/24 23:14 Last Admin: 05/04/24 09:05 Dose: 25 mg Morphine Sulfate (Morphine Sulf Inj 10 Mg/Ml Vial) 2 mg IVP Q4HR PRN PRN Reason: Pain 7-10 Stop: 05/08/24 16:35 Last Admin: 05/04/24 09:04 Dose: 2 mg Home Medication- Please Speak With Patient Caregiver To Have Rx Brought To [facility] 10 mg PO DAILY [facility] Stop: 06/02/24 08:59 Last Admin: 05/04/24 12:31 Dose: Not Given Ondansetron HCl (Ondansetron Inj 2 Mg/Ml Inj 2 Ml) 4 mg IV Q6H PRN; Protocol PRN Reason: NAUSEA OR VOMITING Stop: 06/01/24 22:37 Oxycodone/Acetaminophen (Oxycodone/Apap 5/325 Tablet) 1 tab PO Q6H PRN PRN Reason: PAIN SCALE 4-6 (Moderate Stop: 05/07/24 22:37 Last Admin: 05/02/24 23:54 Dose: 1 tab Pantoprazole Sodium (Pantoprazole Inj 40 Mg Vial) 40 mg IVP QDAY [facility] Stop: 06/02/24 08:59 Last Admin: 05/04/24 09:03 Dose: 40 mg Discontinued Medications Hydrocodone Bitart/Acetaminophen (Hydrocodone/Apap 10/325 Tab) 1 tab PO Q4HR PRN PRN Reason: PAIN SCALE 7-10 (Severe Stop: 05/07/24 22:37 Hydrocodone Bitart/Acetaminophen (Hydrocodone/Apap 5/325 Tablet) 1 tab PO Q4HR PRN PRN Reason: Pain 4-6 Stop: 05/08/24 16:35 Hydralazine HCl (Hydralazine Inj 20 Mg/Ml Vial) 10 mg IV X1 ONE Stop: 05/02/24 20:47 Last Admin: 05/02/24 21:14 Dose: 10 mg Sodium Chloride (Ns) 1,000 mls @ 60 mls/hr IV .[id number] [facility] Stop: 06/01/24 20:50 Last Infusion: 05/02/24 23:56 Dose: Infused Morphine Sulfate (Morphine Sulf Inj 10 Mg/Ml Vial) 4 mg IVP X1 ONE Stop: 05/02/24 20:52 Last Admin: 05/02/24 21:15 Dose: 4 mg Ondansetron HCl (Ondansetron Inj 2 Mg/Ml Inj 2 Ml) 4 mg IV X1 ONE; Protocol Stop: 05/02/24 20:52 Last Admin: 05/02/24 21:15 Dose: 4 mg Polyethylene Glycol (Polyethylene Glycol 17 Gm Packet) 17 gm PO X1 ONE Stop: 05/04/24 08:50 Last Admin: 05/04/24 09:03 Dose: 17 gm Assessment & Plan Plan The patient is a 89 year-old female with PMHx of HTN, dementia, admitted for right hip fracture following a ground-level fall. #Severe aortic stenosis. 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 #History of HTN. BNP 563 on admission. No history of heart failure. No signs or symptoms of fluid overload, clear lung exam, no LE edema or swelling bilaterally. Patient denies orthopnea, chest pain, shortness of breath, dyspnea on exertion, fatigue or any limitations prior to fall and hip fracture. Echo showed: Severe aortic stenosis noted with severely calcified aortic valve. V-max of 4.9 m/s, mean PG of 70 mmHg and aortic valve area of 0.5 cm?. Max PG is 95 mmHg. Trace to mild AI. LV function appears to be normal at 55 to 60%. Moderate LVH. Diastolic dysfunction stage I. Normal RV size and function. Moderately increased RVSP at 55 mmHg. LV appears normal with mild-mod LVH. EF is 55-60% Diastolic dysfunction is present. RV appears reduced in function with RVSP moderately increased RVSP 55 mmHg Moderately dilated LA and mildly dilated RA. Moderate MAC with mild to moderate MR. Moderate TR. Moderately elevated RVSP at 55 mmHg. No pericardial effusion Patient will need full workup for likely TAVR. Plan: -Continue home LISINOPRIL 40 mg daily -Continue home METOPROLOL succinate 25 mg BID -Follow-up outpatient with cardiology for further evaluation #Acute Intertrochanteric fracture of right hip s/p ORIF, post op day 1. #S/P ground level fall. The patient presented following ground-level fall that happened this afternoon the kitchen. She does not remember event clearly. However denies LOC, head trauma, dizziness, lightheadedness prior, leading or during the event. XR right femur showed intertrochanteric fracture of right hip and a CT showed acute right hip fracture of superior inferior right pubic rami. Ambulates semi-indep at home, sometime requires assistance from her son. No obvious bony deformity on laceration on exam. -Eliquis for DVT prophylaxis. -physical therapy. -Pain control. -Orthopedic surgery consulted, appreciate recommendations. #History of dementia, mild. -Continue donepezil HS. #Overactive bladder. -Continue home VIBEGRON 10 mg HS. Diet: regular. GI prophylaxis: PROTONIX DVT prophylaxis: Eliqius. Lines: Peripheral IV CODE STATUS: Full code Plan of care discussed with attending Dr. Vizcarra. Gerson Yeager MD PGY?1
[2024-05-04] MEDS: DONEPEZIL HCL 5 MG TABLET 10 MG PO (20:41)
[2024-05-05] VITALS (19 sets, daily range): BP systolic 120–182; BP diastolic 76–108; PULSE 68–97; RESP 15–23; TEMP 36.2–37.1; O2SAT 92–99; BMI 26.6; BMI 11.0
[2024-05-05 05:45] LABS: Basophils % (Auto) 0 % (0-2.5); Eosinophils % (Auto) 0 % (0-10); Hematocrit 27.6 % (36.0-46.0); Immature Granulocytes % (Auto) 0 % (0-0); Immature Granulocytes Auto 0.02 Thou/mm3 (0.00-0.00); Lymphocytes # (Auto) 0.7 Thou/mm3 (1.0-4.8); Lymphocytes % (Auto) 11 % (10-50); Mean Corpuscular HGB Conc 32.6 g/dl (31.0-37.0); Mean Corpuscular Hemoglobin 31.3 pg (25.0-35.0); Mean Corpuscular Volume 96 fL (80-100); Monocytes # (Auto) 0.7 Thou/mm3 (0.0-0.8); Monocytes % (Auto) 11 % (0-12); Neutrophils # (Auto) 4.9 Thou/mm3 (1.8-7.7); Neutrophils % (Auto) 77 % (37-80); Nucleated Red Blood Cell % 0 /100 WBC (0); Platelet Count 143 Thou/mm3 (140-440); RDW Standard Deviation 46.5 fL (36.4-46.3); Red Blood Count 2.88 Miln/mm3 (4.00-5.20); White Blood Count 6.3 Thou/mm3 (3.6-11.0)
[2024-05-05 06:21] LABS: Alanine Aminotransferase 9 U/L (10-49); Albumin, Serum 3.2 gm/dL (3.4-4.8); Albumin/Globulin Ratio 1.5 (1.2-2.2); Alkaline Phosphatase 47 U/L (46-116); Anion Gap 8 (7-16); Aspartate Amino Transferase 21 U/L (0-34); BUN/Creatinine Ratio 36 Ratio (12-20); Bilirubin,Total 0.5 mg/dL (0.3-1.2); Blood Urea Nitrogen 25 mg/dL (9-23); Calcium 8.2 mg/dL (8.3-10.6); Calcium (Corrected) 8.8 mg/dL (8.5-10.1); Carbon Dioxide 28.3 mMol/L (20.0-31.0); Chloride 106 mMol/L (98-107); Creatinine (Component) 0.7 mg/dL (0.6-1.3); Estimated Creatinine Clearance 468.7 mL/min (>60); Globulin 2.2 gm/dL (2.3-3.5); Glucose 103 mg/dL (74-106); Osmolality,Calculated 287 (275-295); Phosphorous 2.3 mg/dL (2.4-5.1); Potassium 4.2 mMol/L (3.4-5.1); Sodium 142 mMol/L (136-145); Total Protein 5.4 gm/dL (5.7-8.2); eGFR > 60 See Note
--- NOTE | 2024-05-05 07:45 | ESPR_ITS ---
Documentation for date of: 05/05/24 Subjective Subjective Interval history: Patient was seen and examined at bedside. No acute overnight events. Today morning nurse reported patient is having black stools, hemoglobin dropped to 9. Patient was placed on n.p.o., FOBT was ordered and Eliquis was held. GI is consulted, pending recommendations. Exam Vital Signs Temp Pulse Resp BP Pulse Ox O2 Del Method O2 Flow Rate 97.7 F 68 15 141/77 H 95 Room Air 2 05/05/24 07:36 05/05/24 07:36 05/05/24 07:36 05/05/24 07:36 05/05/24 07:36 05/05/24 07:36 05/04/24 04:00 Narrative Exam Gen: Well-developed and well-nourished elderly female. HEENT: NCAT, PERRLA, EOMI, MMM, anicteric conjunctivae. CVS: normal S1 and S2. RRR. Loud holosystolic murmur mostly pronounced over aortic area. Resp: CTA B/L. No rhonchi, rales, crackles or wheezing. Abd: soft, non-tender, non-distended. BS+ in all 4 quadrants. MSK: Good ROM in BUE & LLE. No edema or rash. Right hip is in bandage and appears clean. Neuro: CN II-XII grossly intact. Strength 5/5 in BUE & LLE. Alert and oriented x3. Psych: appropriate mood and affect. Objective Labs 05/05/24 08:50 05/05/24 04:20 Labs: Laboratory Results - last 24 hr 05/05/24 04:20 WBC 6.3 RBC 2.88 L Hgb 9.0 L Hct 27.6 L MCV 96 MCH 31.3 MCHC 32.6 RDW Std Deviation 46.5 H Plt Count 143 Neut % (Auto) 77 Lymph % (Auto) 11 [place] % (Auto) 11 Eos % (Auto) 0 Baso % (Auto) 0 Neut # (Auto) 4.9 Lymph # (Auto) 0.7 L [place] # (Auto) 0.7 Eos # (Auto) 0.0 Baso # (Auto) 0.0 Immature Gran # (Auto) 0.02 H Absolute Nucleated RBC 0.00 Immature Gran % 0 Nucleated RBC % 0 Sodium 142 Potassium 4.2 Chloride 106 Carbon Dioxide 28.3 Anion Gap 8 BUN 25 H Creatinine 0.7 Estim Creat Clear Calc 468.7 eGFR > 60 BUN/Creatinine Ratio 36 H Glucose 103 Calculated Osmolality 287 Calcium 8.2 L Corrected Calcium 8.8 Phosphorus 2.3 L Magnesium 2.0 Total Bilirubin 0.5 AST 21 ALT 9 L Alkaline Phosphatase 47 Total Protein 5.4 L Albumin 3.2 L Globulin 2.2 L Albumin/Globulin Ratio 1.5 Quality Measures Quality Measures VTE prophylaxis Advance care planning discussed with:: patient Assessment & Plan Assessment Current Active Medications: Generic Name Dose Route Start Last Admin Trade Name Freq PRN Reason Stop Dose Admin Acetaminophen 650 mg 05/02/24 22:38 Acetaminophen 325 Mg Tablet PO 06/01/24 22:37 Q6H PRN PAIN SCALE 1-3 (mild Acetaminophen 650 mg 05/02/24 22:38 Acetaminophen 325 Mg Tablet PO 06/01/24 22:37 Q6H PRN Fever >100.4 Hydrocodone Bitart/Acetaminophen 1 tab 05/04/24 08:41 Hydrocodone/Apap 5/325 Tablet PO 05/08/24 16:35 Q4HR PRN SEVERE BREAKTHRU PAIN Apixaban 2.5 mg 05/04/24 10:45 05/04/24 20:41 Apixaban 2.5 Mg Tablet PO 06/03/24 10:44 2.5 mg BID IVONNE Administration Donepezil HCl 10 mg 05/03/24 21:00 05/04/24 20:41 Donepezil Hcl 5 Mg Tablet PO 06/02/24 20:59 10 mg HS IVONNE Administration Iron Sucrose 200 mg 05/05/24 09:00 Iron Sucrose Cplx Inj 20 Mg/Ml Vial 5 Ml IVP 05/09/24 08:59 DAILY IVONNE Lisinopril 40 mg 05/03/24 09:00 05/04/24 09:04 Lisinopril 20 Mg Tablet PO 06/02/24 08:59 40 mg QDAY IVONNE Administration Metoprolol Succinate 25 mg 05/02/24 23:15 05/04/24 20:41 Metoprolol Succinate Xl 25 Mg Tabcr PO 06/01/24 23:14 25 mg BID IVONNE Administration Morphine Sulfate 2 mg 05/03/24 16:36 05/04/24 09:04 Morphine Sulf Inj 10 Mg/Ml Vial IVP 05/08/24 16:35 2 mg Q4HR PRN Administration Pain 7-10 Home Medication- 10 mg 05/03/24 09:00 05/04/24 12:31 Please Speak With PO 06/02/24 08:59 Not Given Patient Caregiver To DAILY IVONNE Have Rx Brought To [facility] Ondansetron HCl 4 mg 05/02/24 22:38 Ondansetron Inj 2 Mg/Ml Inj 2 Ml IV 06/01/24 22:37 Q6H PRN NAUSEA OR VOMITING Protocol Oxycodone/Acetaminophen 1 tab 05/02/24 22:38 05/02/24 23:54 Oxycodone/Apap 5/325 Tablet PO 05/07/24 22:37 1 tab Q6H PRN Administration PAIN SCALE 4-6 (Moderate Pantoprazole Sodium 40 mg 05/03/24 09:00 05/04/24 09:03 Pantoprazole Inj 40 Mg Vial IVP 06/02/24 08:59 40 mg QDAY IVONNE Administration Plan The patient is a 89 year-old female with PMHx of HTN, dementia, admitted for right hip fracture following a ground-level fall. #Suspected GI bleeding. Nursing stuff reported black stools, Hgb dropped from 10.2 yesterday to 9 today. Plan: -repeat HH. -FOBT. -GI consult. -AC held. #Acute Intertrochanteric fracture of right hip s/p ORIF, post op day 2. #S/P ground level fall. The patient presented following ground-level fall that happened this afternoon the kitchen. She does not remember event clearly. However denies LOC, head trauma, dizziness, lightheadedness prior, leading or during the event. XR right femur showed intertrochanteric fracture of right hip and a CT showed acute right hip fracture of superior inferior right pubic rami. Ambulates semi-indep at home, sometime requires assistance from her son. No obvious bony deformity on laceration on exam. Plan: - Eliquis for DVT prophylaxis held due to suspected GIB. - physical therapy. ? Pain control. ? Orthopedic surgery consulted, appreciate recommendations. #Severe aortic stenosis. 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 #History of HTN. BNP 563 on admission. No history of heart failure. No signs or symptoms of fluid overload, clear lung exam, no LE edema or swelling bilaterally. Echo showed severe , Diastolic dysfunction stage I, EF 55 to 60% Plan: ? Continue home LISINOPRIL 40 mg daily ? Continue home METOPROLOL succinate 25 mg BID - cardiology consulted. #History of dementia, mild. ? Continue donepezil HS. #Overactive bladder. ? Continue home VIBEGRON 10 mg HS. Health maintenance: Diet: regular. GI prophylaxis: PROTONIX. DVT prophylaxis: SCDs. Antibiotics: None CODE STATUS: Full code. Disposition: Post op day 1. Plan of care discussed with attending Dr. Cr. Vince Dowell MD, PGY 2. Disclaimer: This note was dictated by speech recognition. Minor errors in collections director may be present due to voice recognition software. Attending Provider Attestation/Addendum Sliding scale insulin, I have discussed and was present for the essential components of the history, physical examination, diagnosis, and treatment plan with the resident. I agree with the patient's care as documented by the resident and amended herein by me. Isak Cr, DO. Patient seen and evaluated this AM. Per nursing staff the patient did have an episode of black stools overnight with an associated drop in hemoglobin to 9 today. Patient was started on Eliquis yesterday for DVT prophylaxis in setting of repair of the patient's intertrochanteric fracture of the right hip, which has been held in setting of possible GI bleed. FOBT ordered however we did consult GI as well considering above. Dr. Glass notified, will continue WBAT, physical therapy and pain control, likely discharge back back to SNF in 1 to 2 days pending specialist recommendations. Although this document has been carefully reviewed, there may still be some phonetic and other typographical errors. These errors are purely grammatical due to imperfections in the software program and should not be construed in any way to compromise the substance of the patient's medical care during this visit.
[2024-05-05] MEDS: Lisinopril 20 MG TABLET 40 MG PO (08:29)
[2024-05-05] MEDS: METOPROLOL SUCCINATE XL 25 MG TABCR PO (08:30)
[2024-05-05] MEDS: PANTOPRAZOLE INJ 40 MG VIAL IVP (08:32)
[2024-05-05] MEDS: IRON SUCROSE CPLX INJ 20 MG/ML VIAL 5 ML 200 MG IVP (08:36)
--- NOTE | 2024-05-05 09:21 | ESPR_ITS ---
Documentation for date of: 05/05/24 Subjective Subjective Interval history: No acute over night events reported. Patient is seen and examined at bedside this morning. Patient is saturating above 95% on room air. Patient denies any chest pain, pressure, dizziness or syncope. 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 Patient also stated that she is also having never been tested for any heart disease. Patient states she lives with her child and is able to all activities of daily living independently without assistance patient does not use any oxygen at home and does not use a walker at home. Patient denies being dizzy before the ground-level fall. Patient has no cardiac complaints Current vitals include blood pressure 128/76 and heart rate of 76. Lab findings include hemoglobin 9.1, hematocrit 27.9, potassium 4.2, 2.0, BUN 25, creatinine 0.7, GFR>60, phosphorus 2.3. Exam Vital Signs Temp Pulse Resp BP Pulse Ox O2 Del Method O2 Flow Rate 97.7 F 68 15 141/77 H 95 Room Air 2 05/05/24 07:36 05/05/24 08:30 05/05/24 07:36 05/05/24 08:30 05/05/24 07:36 05/05/24 07:36 05/04/24 04:00 Narrative Exam GENERAL: A&Ox3 elderly female, Awake, Not in acute distress NEURO: no focal neurological deficits HEENT: Atraumatic, Normocephalic. mucous membranes moist. Eyes open, symmetrical, & clear HEART: loud holosytolic murmur heard at the aortic region LUNGS: Clear to auscultation with no wheezing or crackles. ABDOMEN: soft, non-distended, non-tender, bowel sounds heard, no guarding or rebound tenderness SKIN: No Rash or ecchymoses EXTREMITIES: No edema, tenderness, able to move all 4 extremities, pedal pulses palpated, right hip surgery site clean and dressing is dry Objective Labs 05/05/24 08:50 05/05/24 04:20 Labs: Laboratory Results - last 24 hr 05/05/24 04:20 WBC 6.3 RBC 2.88 L Hgb 9.0 L Hct 27.6 L MCV 96 MCH 31.3 MCHC 32.6 RDW Std Deviation 46.5 H Plt Count 143 Neut % (Auto) 77 Lymph % (Auto) 11 [place] % (Auto) 11 Eos % (Auto) 0 Baso % (Auto) 0 Neut # (Auto) 4.9 Lymph # (Auto) 0.7 L [place] # (Auto) 0.7 Eos # (Auto) 0.0 Baso # (Auto) 0.0 Immature Gran # (Auto) 0.02 H Absolute Nucleated RBC 0.00 Immature Gran % 0 Nucleated RBC % 0 Sodium 142 Potassium 4.2 Chloride 106 Carbon Dioxide 28.3 Anion Gap 8 BUN 25 H Creatinine 0.7 Estim Creat Clear Calc 468.7 eGFR > 60 BUN/Creatinine Ratio 36 H Glucose 103 Calculated Osmolality 287 Calcium 8.2 L Corrected Calcium 8.8 Phosphorus 2.3 L Magnesium 2.0 Total Bilirubin 0.5 AST 21 ALT 9 L Alkaline Phosphatase 47 Total Protein 5.4 L Albumin 3.2 L Globulin 2.2 L Albumin/Globulin Ratio 1.5 Quality Measures Quality Measures VTE prophylaxis Advance care planning discussed with:: patient Assessment & Plan Assessment Current Active Medications: Generic Name Dose Route Start Last Admin Trade Name Freq PRN Reason Stop Dose Admin Acetaminophen 650 mg 05/02/24 22:38 Acetaminophen 325 Mg Tablet PO 06/01/24 22:37 Q6H PRN PAIN SCALE 1-3 (mild Acetaminophen 650 mg 05/02/24 22:38 Acetaminophen 325 Mg Tablet PO 06/01/24 22:37 Q6H PRN Fever >100.4 Hydrocodone Bitart/Acetaminophen 1 tab 05/04/24 08:41 Hydrocodone/Apap 5/325 Tablet PO 05/08/24 16:35 Q4HR PRN SEVERE BREAKTHRU PAIN Apixaban 2.5 mg 05/04/24 10:45 05/04/24 20:41 Apixaban 2.5 Mg Tablet PO 06/03/24 10:44 2.5 mg BID IVONNE Administration Donepezil HCl 10 mg 05/03/24 21:00 05/04/24 20:41 Donepezil Hcl 5 Mg Tablet PO 06/02/24 20:59 10 mg HS IVONNE Administration Iron Sucrose 200 mg 05/05/24 09:00 05/05/24 08:36 Iron Sucrose Cplx Inj 20 Mg/Ml Vial 5 Ml IVP 05/09/24 08:59 200 mg DAILY IVONNE Administration Lisinopril 40 mg 05/03/24 09:00 05/05/24 08:29 Lisinopril 20 Mg Tablet PO 06/02/24 08:59 40 mg QDAY IVONNE Administration Metoprolol Succinate 25 mg 05/02/24 23:15 05/05/24 08:30 Metoprolol Succinate Xl 25 Mg Tabcr PO 06/01/24 23:14 25 mg BID IVONNE Administration Morphine Sulfate 2 mg 05/03/24 16:36 05/04/24 09:04 Morphine Sulf Inj 10 Mg/Ml Vial IVP 05/08/24 16:35 2 mg Q4HR PRN Administration Pain 7-10 Home Medication- 10 mg 05/03/24 09:00 05/04/24 12:31 Please Speak With PO 06/02/24 08:59 Not Given Patient Caregiver To DAILY IVONNE Have Rx Brought To [facility] Ondansetron HCl 4 mg 05/02/24 22:38 Ondansetron Inj 2 Mg/Ml Inj 2 Ml IV 06/01/24 22:37 Q6H PRN NAUSEA OR VOMITING Protocol Oxycodone/Acetaminophen 1 tab 05/02/24 22:38 05/02/24 23:54 Oxycodone/Apap 5/325 Tablet PO 05/07/24 22:37 1 tab Q6H PRN Administration PAIN SCALE 4-6 (Moderate Pantoprazole Sodium 40 mg 05/03/24 09:00 05/05/24 08:32 Pantoprazole Inj 40 Mg Vial IVP 06/02/24 08:59 40 mg QDAY IVONNE Administration Plan Ms. Sykes is a 89 year-old female with past medical history significant for HTN and dementia presented to the ED after ground level fall, Pt is admitted for right hip fracture. Cardiology is consulted for new diagnosed severe aortic stenosis #Severe aortic stenosis. #Diastolic heart failure- HFpEF 55-60%. -On admission BNP 563. No known history of heart failure. No signs or symptoms of fluid overload, clear lung exam, no LE edema or swelling bilaterally. -Patient denies orthopnea, chest pain, shortness of breath, dyspnea on exertion, fatigue or any limitations prior to fall and hip fracture. Echo done on 05/04/24 findings include Severe aortic stenosis noted with severely calcified aortic valve. V-max of 4.9 m/s, mean PG of 70 mmHg and aortic valve area of 0.5 cm?. Max PG is 95 mmHg. Trace to mild AI. LV function appears to be normal at 55 to 60%. Moderate LVH. Diastolic dysfunction stage I. Normal RV size and function. Moderately increased RVSP at 55 mmHg. LV appears normal with mild-mod LVH. EF is 55-60% Diastolic dysfunction is present. RV appears reduced in function with RVSP moderately increased RVSP 55 mmHg Moderately dilated LA and mildly dilated RA. Moderate MAC with mild to moderate MR. Moderate TR. Moderately elevated RVSP at 55 mmHg. No pericardial effusion Plan: -Given her age patient is mostly not a candidate for surgical aortic valve replacement and will need possible TAVR and will start workup for the same. To evaluate her candidacy for both procedures patient will need a left and right cardiac catheterization, CT TAVR as well as cardiothoracic surgery consult which can be arranged as outpatient. -Follow-up outpatient with cardiology, patient will need full workup to be evaluated for TAVR. #History of HTN. -BP is well controlled with home lisinopril and metoprolol #Acute Anemia -Hgb 9.1, Hct 27.9 baseline Hgb appears to be 12-23 -Likely secondary to blood loss during surgery -Pt is started on Iron sucrose daily monitor CBC daily #Acute Intertrochanteric fracture of right hip s/p ORIF, post op day 2. #S/P ground level fall. -The patient presented following ground-level fall that happened this afternoon the kitchen. -She does not remember event clearly. However denies LOC, head trauma, dizziness, lightheadedness prior, leading or during the event. -XR right femur showed intertrochanteric fracture of right hip and a CT showed acute right hip fracture of superior inferior right pubic rami. -Ambulates semi-indep at home, sometime requires assistance from her son. -No obvious bony deformity on laceration on exam. -Eliquis for DVT prophylaxis. -physical therapy. -Pain control. -Pt is s/p ORIF post op day 2 #History of dementia, mild. -Continue donepezil HS. #Overactive bladder. -Continue home VIBEGRON 10 mg HS. Assessment and plan discussed with my attending physician Dr. Zackery Merida (PGY-1)- Internal medicine resident Attending Provider Attestation/Addendum I have personally seen and examined the patient separately on the above date of service and discussed the plan of care with the resident. I reviewed the resident Dr. Gerson Yeager consultation progress note and agree with the resident findings and plan in the note above and have also edited the documentation to reflect my findings and plan. 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 Patient apparently had a mechanical fall after tripping over an object and she denied any kind of dizziness lightheadedness or further complaints. Continue current chest pain chest pressure or shortness of breath or orthopnea or PND. She did not complain of any leg swelling or PND. Patient did have surgery for acute intertrochanteric fracture of the right hip status post ORIF by orthopedics. No major postoperative complications. She was started on Eliquis 2.5 mg twice daily for DVT prophylaxis. Later patient. At baseline patient apparently walks with assistance of cane and patient is independent mostly and has most of her ADLs without major health but son helps with her IADLs. Patient denies any kind of major health problems except that she has hypertension and does only see a primary doctor and has not seen a auto mechanics instructor. Patient denies any smoking or alcohol or drug abuse. 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 She is fairly healthy without any other major comorbidities except for the recent fall and fracture. EKG on admission 05/02/2024 showed normal sinus rhythm with LVH strain pattern without any acute ST-T changes suggestive of any ischemia. Labs during the admission reviewed and hemoglobin decreased from 13 to 9.0 after the surgery. BMP reviewed and showed's mild dehydration with BUN of 26 and creatinine of 0.9. BMP was 563. Troponin was negative. Total cholesterol 202, HDL 62 and LDL 124 TSH normal at 1.2. No recent A1c. Echo was ordered by the primary team which showed severe aortic stenosis and cardiology consulted for further evaluation. Assessment and plan: 1. Severe aortic stenosis 2. HFpEF/ diastolic congestive heart failure -euvolemic 3. Right hip fracture status post ORIF. 4. Uncontrolled hypertension 5. Mechanical fall 6. Anemia status post acute blood loss from the surgery 7. 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 Urinary incontinence with overactive bladder 9. Mild ALISE-prerenal Prescription patient presented systolic murmur in the aortic area and the echo was ordered. Echo from 05/05/2024 which showed Severe aortic stenosis noted with severely calcified aortic valve. V-max of 4.9 m/s, mean PG of 70 mmHg and aortic valve area of 0.5 cm?. Max PG is 95 mmHg. Trace to mild AI. LV function appears to be normal at 55 to 60%. Moderate LVH. Diastolic dysfunction stage I. Normal RV size and function. Moderately increased RVSP at 55 mmHg. Moderately dilated LA and mildly dilated RA. Moderate MAC with mild to moderate MR.Moderate TR. No pericardial effusion New diagnosis of the severe aortic stenosis and patient unaware of the diagnosis. Patient denies any kind of previous syncope or any admissions for heart failure and has been doing well.. As noted in the history patient is fairly active and walks with the help of cane and able to do her ADLs without any major issues. Patient answered all the questions appropriately and she probably only has mild cognitive deficiency with occasional memory issues and not much dementia. Patient has severe/critical aortic stenosis with V-max of almost close to 5 m/s with a mean gradient of 95 mmHg and mean gradient close to 70 mmHg and valve area less than 0.5 cm? and will need aortic valve replacement. Given her age patient is mostly not a candidate for surgical aortic valve replacement and will need possible TAVR and will start workup for the same. To evaluate her candidacy for both procedures patient will need a left and right cardiac catheterization, CT TAVR as well as cardiothoracic surgery consult which can be arranged as outpatient. Patient presently in the hospital after the acute right hip fracture and will need time to recover from the same and also is on anticoagulation Eliquis 2.5 mg twice daily for DVT prophylaxis. Patient explained the risk benefits and alternatives of and the aortic valve replacements for both procedures and patient is willing to undergo further workup for the same. Recommended to follow-up from the rehab and inform the primary team to make sure patient does have a follow-up in the next 1 to 2 weeks in the clinic. HFpEF-EF of 55 to 60%. Patient denies any kind of history of heart failure previously. Diagnosis based on echocardiogram findings. BNP was elevated at 530 but patient does not appear to be fluid overloaded at the present point of time and is probably hypovolemic secondary to the blood loss with hemoglobin at 9.0. Strict input output Daily weights and 2 g sodium diet. Uncontrolled hypertension-patient on lisinopril 40 mg once daily and metoprolol XL 25 mg twice daily at home and recommend to continue and the goal systolic blood pressure around 130-140 mmHg. Will continue to adjust medications. Anemia-acute anemia as a hemoglobin was 13 on admission and now at 9. Mostly secondary to the blood loss from the recent right hip surgery. Recommend to continue to closely monitor the hemoglobin and keep hemoglobin between 9-10. Transfuse as needed. Started on IV iron now. Patient should be discharged on ferrous sulfate 325 mg once daily for her acute anemia as she will need further cardiac procedures as mentioned above. Management of rest of the medical conditions as per primary team and other consultants. Thank you for the consult and allowing me to participate in the care of the patient. Cardiology will continue to follow. Ezekiel Vizcarra M.D. Interventional Cardiology
[2024-05-05 09:25] LABS: Hematocrit 27.9 % (36.0-46.0); Hemoglobin 9.1 g/dL (12.0-16.0)
[2024-05-05] MEDS: NAPH,KPH MBDB 1 PACKET (1.5 GM) PO (10:56)
[2024-05-05] MEDS: SODIUM CHLORIDE 0.9% 1000 ML 1,000 ML 60 ML IV (10:56)
--- NOTE | 2024-05-05 13:02 | PD.ORTHPN ---
Subjective Subjective Brief History: Nancy is a pleasant 89-year-old female who is a baseline ambulator with a cane who presented with a ground-level fall yesterday. She had a fall in the kitchen. She denies any loss of consciousness or hitting her head. She reports significant right hip pain and was unable to ambulate. She was brought to the emergency room here. She was found to have a intertrochanteric fracture of the right hip. She had a prior history of a left hip fracture status post arthroplasty before. Narrative: Patient was doing well. Pain is well controlledf Exam Vital Signs Temp Pulse Resp BP Pulse Ox O2 Del Method O2 Flow Rate 98.0 F 76 16 128/76 97 Room Air 2 05/05/24 12:00 05/05/24 12:00 05/05/24 12:00 05/05/24 12:00 05/05/24 12:00 05/05/24 07:36 05/04/24 04:00 Additional findings Additional findings: NAD SILT Dressing C/D/I Objective - Ortho Labs 05/05/24 08:50 05/05/24 04:20 Labs: Laboratory Results - last 24 hr 05/05/24 05/05/24 04:20 08:50 WBC 6.3 RBC 2.88 L Hgb 9.0 L 9.1 L Hct 27.6 L 27.9 L MCV 96 MCH 31.3 MCHC 32.6 RDW Std Deviation 46.5 H Plt Count 143 Neut % (Auto) 77 Lymph % (Auto) 11 [place] % (Auto) 11 Eos % (Auto) 0 Baso % (Auto) 0 Neut # (Auto) 4.9 Lymph # (Auto) 0.7 L [place] # (Auto) 0.7 Eos # (Auto) 0.0 Baso # (Auto) 0.0 Immature Gran # (Auto) 0.02 H Absolute Nucleated RBC 0.00 Immature Gran % 0 Nucleated RBC % 0 Sodium 142 Potassium 4.2 Chloride 106 Carbon Dioxide 28.3 Anion Gap 8 BUN 25 H Creatinine 0.7 Estim Creat Clear Calc 468.7 eGFR > 60 BUN/Creatinine Ratio 36 H Glucose 103 Calculated Osmolality 287 Calcium 8.2 L Corrected Calcium 8.8 Phosphorus 2.3 L Magnesium 2.0 Total Bilirubin 0.5 AST 21 ALT 9 L Alkaline Phosphatase 47 Total Protein 5.4 L Albumin 3.2 L Globulin 2.2 L Albumin/Globulin Ratio 1.5 Assessment & Plan Diagnosis (1) Intertrochanteric fracture of right hip: Status: Acute Assessment Additional comments: Patient is pod2 s/p r hip tfn - wbat - pt/ot - pain control
--- NOTE | 2024-05-05 20:39 | PD.IMCONS ---
HPI Data of Consult Requesting Physician: Bruce Cr DO Primary Care Provider: Physician No Primary/Family Consult Narrative Reason for consult: Melena acute posthemorrhagic anemia History of present illness: 89 years old female I been consulted for melanotic stools with a drop in hemoglobin hematocrit to 9.1 and 27.9 She was admitted on 05/02/2024 for acute right hip intertrochanteric fracture which was angulated and status post ORIF Patient was on Eliquis which has been held No hematemesis cc:: cc: Bruce Cr DO Review of Systems Review of Systems Systems Reviewed: All systems reviewed, normal except as documented Meds Home Medications and Allergies Home Medications ?Medication ?Instructions ?Recorded ?Confirmed ?Type cholecalciferol (vitamin D3) 125 125 mcg PO HS 06/18/20 05/05/24 History mcg (5,000 unit) tablet (Vitamin D3) ferrous fumarate-ascorbic 1 tab PO HS 06/18/20 05/05/24 History acid-ascorbate sod 65 mg iron-125 mg tablet [id number] acid 0.4 1 tab PO HS 06/18/20 05/05/24 History mg-lycopene 300 mcg-lutein 250 mcg tablet (Centrum Silver) donepezil 10 mg tablet 10 mg PO HS 05/03/24 05/03/24 History lisinopril 40 mg tablet 40 mg PO QDAY 05/03/24 05/03/24 History metoprolol succinate 25 mg 25 mg PO Q12H 05/03/24 05/03/24 History tablet,extended release 24 hr vibegron 75 mg tablet (Gemtesa) 75 mg PO QDAY 05/03/24 05/03/24 History Allergies Allergy/AdvReac Type Severity Reaction Status Date / Time No Known Allergies Allergy Verified 06/19/20 15:02 Exam Vital Signs Temp Pulse Resp BP Pulse Ox O2 Del Method O2 Flow Rate 98.8 F 88 18 127/84 99 Room Air 2 05/05/24 16:00 05/05/24 16:00 05/05/24 16:00 05/05/24 16:00 05/05/24 16:00 05/05/24 07:36 05/04/24 04:00 Constitutional Comments: Alert oriented Routine Respiratory Exam Comments: Normal to auscultation Routine Abdominal Exam Comments: Soft nontender Results Labs 05/05/24 08:50 05/05/24 04:20 Labs: Short CBC 05/05/24 05/05/24 Range/Units 04:20 08:50 WBC 6.3 (3.6-11.0) Thou/mm3 Hgb 9.0 L 9.1 L (12.0-16.0) g/dL Hct 27.6 L 27.9 L (36.0-46.0) % Plt Count 143 (140-440) Thou/mm3 BMP 05/05/24 04:20 Sodium 142 Potassium 4.2 Chloride 106 Carbon Dioxide 28.3 BUN 25 H Creatinine 0.7 Glucose 103 Calcium 8.2 L Liver Function 05/05/24 Range/Units 04:20 Total Bilirubin 0.5 (0.3-1.2) mg/dL AST 21 (0-34) U/L ALT 9 L (10-49) U/L Alkaline Phosphatase 47 (46-116) U/L Albumin 3.2 L (3.4-4.8) gm/dL Assessment and Plan Additional Assessment & Plan Additional Plan: Melena leading to anemia of blood loss and the patient on Eliquis which has been held Plan Consent obtained for fiberoptic esophagogastroduodenoscopy with possible therapeutic intervention possible biopsy under intravenous moderate sedation proceed with the procedure If the hemoglobin drops further may consider doing PRBC transfusion Other medical problems include Right hip intertrochanteric fracture status post ORIF Dementia Essential hypertension Severe aortic stenosis Moderate mitral regurgitation Thank you very much for the opportunity to participate in care of this patient
--- NOTE | 2024-05-05 20:55 | SUR.PHASEI ---
Arrived to [facility] [place] [facility] via [facility]. Report received from Aixa VASQUES. Resting with eyes closed but responds to questions and commands appropriately. No c/o pain or discomfort.
--- NOTE | 2024-05-05 21:30 | SUR.PHASEI ---
Taken to room 356 via gurney. No c/o pain or discomfort. Responding to questions and commands appropriately. Transferred to bed and made comfortable. Dariana JACKSON at bedside.
[2024-05-05] MEDS: MG HYD/AL HYD/SIME (Maalox Reg) SUSP 30 ML UDC 15 ML PO (22:04)
[2024-05-05] MEDS: SUCRALFATE SUSP 1 GM/10 ML UDC PO (22:05)
[2024-05-06] VITALS (8 sets, daily range): BP systolic 135–166; BP diastolic 82–92; PULSE 65–92; RESP 16–20; TEMP 36.2–37; O2SAT 95–97; BMI 13.0
[2024-05-06] MEDS: MG HYD/AL HYD/SIME (Maalox Reg) SUSP 30 ML UDC 15 ML PO ×4 (05:34→20:40)
[2024-05-06] MEDS: SUCRALFATE SUSP 1 GM/10 ML UDC PO ×4 (05:34→20:40)
[2024-05-06 06:04] LABS: Basophils % (Auto) 1 % (0-2.5); Eosinophils # (Auto) 0.1 Thou/mm3 (0.0-0.5); Eosinophils % (Auto) 2 % (0-10); Hematocrit 25.9 % (36.0-46.0); Immature Granulocytes % (Auto) 0 % (0-0); Immature Granulocytes Auto 0.02 Thou/mm3 (0.00-0.00); Lymphocytes # (Auto) 0.6 Thou/mm3 (1.0-4.8); Lymphocytes % (Auto) 12 % (10-50); Mean Corpuscular HGB Conc 32.4 g/dl (31.0-37.0); Mean Corpuscular Hemoglobin 31.6 pg (25.0-35.0); Mean Corpuscular Volume 97 fL (80-100); Monocytes # (Auto) 0.4 Thou/mm3 (0.0-0.8); Monocytes % (Auto) 9 % (0-12); Neutrophils # (Auto) 3.7 Thou/mm3 (1.8-7.7); Neutrophils % (Auto) 76 % (37-80); Nucleated Red Blood Cell % 0 /100 WBC (0); Platelet Count 114 Thou/mm3 (140-440); RDW Standard Deviation 46.5 fL (36.4-46.3); Red Blood Count 2.66 Miln/mm3 (4.00-5.20); White Blood Count 4.8 Thou/mm3 (3.6-11.0)
[2024-05-06 06:11] LABS: Hemoglobin 8.4 g/dL (12.0-16.0)
[2024-05-06 06:30] LABS: Alanine Aminotransferase 9 U/L (10-49); Albumin, Serum 3.1 gm/dL (3.4-4.8); Albumin/Globulin Ratio 1.4 (1.2-2.2); Alkaline Phosphatase 46 U/L (46-116); Anion Gap 7 (7-16); Aspartate Amino Transferase 20 U/L (0-34); BUN/Creatinine Ratio 33 Ratio (12-20); Bilirubin,Total 0.5 mg/dL (0.3-1.2); Blood Urea Nitrogen 20 mg/dL (9-23); Calcium 8.1 mg/dL (8.3-10.6); Calcium (Corrected) 8.8 mg/dL (8.5-10.1); Carbon Dioxide 28.4 mMol/L (20.0-31.0); Chloride 111 mMol/L (98-107); Creatinine (Component) 0.6 mg/dL (0.6-1.3); Estimated Creatinine Clearance 62.1 mL/min (>60); Globulin 2.2 gm/dL (2.3-3.5); Glucose 92 mg/dL (74-106); Osmolality,Calculated 293 (275-295); Phosphorous 2.4 mg/dL (2.4-5.1); Sodium 146 mMol/L (136-145); Total Protein 5.3 gm/dL (5.7-8.2); eGFR > 60 See Note
--- NOTE | 2024-05-06 07:03 | PD.RESPRO ---
Documentation for date of: 05/06/24 Subjective Subjective Interval history: Not overnight acute events This morning at the bedside, patient is AOx4, saturating well on room air, responding questions properly, tolerating p.o. denies any acute complaints at the moment denied. Patient was working with with physical therapy and she stated that she is feeling well and she would like to go home. Hemoglobin has been stable no signs of active bleeding at this moment patient denied melena or hematochezia. EGD showed hemorrhagic gastritis for which gastroenterology recommend Carafate and Maalox 4 times daily as well as IV Protonix 40 mg daily, as well as resume Eliquis for DVT prophylaxis. If patient remains stable we will anticipate discharge to SNF in the next 24 to 48 hours. Exam Vital Signs Temp Pulse Resp BP Pulse Ox O2 Del Method O2 Flow Rate 98 F 85 20 166/89 H 95 Nasal Cannula 2 05/06/24 04:00 05/06/24 04:00 05/06/24 04:00 05/06/24 04:00 05/06/24 04:00 05/06/24 04:00 05/06/24 04:00 Narrative Exam General: No acute distress, well appearing, alert, interactive. HEENT: NC/AT, PERRL, EOMI, Good conjugate gaze, moist mucous membranes, oropharynx clear. Neck: Supple, No masses, No adenopathy, carotid pulse 2+ bilaterally without bruits, No JVD, normal range of motion. Chest: Symmetrical, atraumatic, and with equal expansion , Nontender on palpation no deformity and no crepitus. CVS: S1 and S2 present, Regular rate and rhythm, grade 3/6 systolic crescendo decrescendo murmur aortic valve area, rubs or gallops perceived during auscultation. Lungs: Normal respiratory effort, CTAB, no wheezing, rhonchi or rales perceived during auscultation, No intercostal or subcostal retraction. Abdomen : Soft, no tenderness to palpation, no guarding ,no rebound, +BS, no organomegaly. Extremities: No edema, warm well perfused, normal tone and ROM, strength and sensation intact, cap refill less than 2, +2 dp equal bilaterally, able to move all 4 extremities spontaneously, left hip incision clean no evidence of active bleeding or hematoma. Skin: Intact, no rashes, no lesions, no erythema or jaundice noted Neuro: AOx3, no focal neurologic deficits noted, GCS 15 Psych: Appropriate mood and affect. Objective Labs 05/06/24 05:18 05/06/24 05:18 Labs: Laboratory Results - last 24 hr 05/05/24 05/06/24 08:50 05:18 WBC 4.8 RBC 2.66 L Hgb 9.1 L 8.4 L Hct 27.9 L 25.9 L MCV 97 MCH 31.6 MCHC 32.4 RDW Std Deviation 46.5 H Plt Count 114 L D Neut % (Auto) 76 Lymph % (Auto) 12 [place] % (Auto) 9 Eos % (Auto) 2 Baso % (Auto) 1 Neut # (Auto) 3.7 Lymph # (Auto) 0.[address] [place] # (Auto) 0.4 Eos # (Auto) 0.1 Baso # (Auto) 0.0 Immature Gran # (Auto) 0.02 H Absolute Nucleated RBC 0.00 Immature Gran % 0 Nucleated RBC % 0 Sodium 146 H Potassium 4.0 Chloride 111 H Carbon Dioxide 28.4 Anion Gap 7 BUN 20 Creatinine 0.6 Estim Creat Clear Calc 62.1 eGFR > 60 BUN/Creatinine Ratio 33 H Glucose 92 Calculated Osmolality 293 Calcium 8.1 L Corrected Calcium 8.8 Phosphorus 2.4 Magnesium 2.0 Total Bilirubin 0.5 AST 20 ALT 9 L Alkaline Phosphatase 46 Total Protein 5.3 L Albumin 3.1 L Globulin 2.2 L Albumin/Globulin Ratio 1.4 Quality Measures Quality Measures VTE prophylaxis Advance care planning discussed with:: patient Assessment & Plan Assessment Current Active Medications: Generic Name Dose Route Start Last Admin Trade Name Javy PRN Reason Stop Dose Admin Acetaminophen 650 mg 05/02/24 22:38 Acetaminophen 325 Mg Tablet PO 06/01/24 22:37 Q6H PRN PAIN SCALE 1-3 (mild Acetaminophen 650 mg 05/02/24 22:38 Acetaminophen 325 Mg Tablet PO 06/01/24 22:37 Q6H PRN Fever >100.4 Hydrocodone Bitart/Acetaminophen 1 tab 05/04/24 08:41 Hydrocodone/Apap 5/325 Tablet PO 05/08/24 16:35 Q4HR PRN SEVERE BREAKTHRU PAIN Al Hydrox/Mg Hydrox/Simethicone 15 ml 05/05/24 21:00 05/06/24 05:34 Mg Hyd/Al Hyd/Amrit (Maalox Reg) Susp 30 Ml Udc PO 06/04/24 20:59 15 ml QID IVONNE Administration Apixaban 2.5 mg 05/04/24 10:45 05/04/24 20:41 Apixaban 2.5 Mg Tablet PO 06/03/24 10:44 2.5 mg BID IVONNE Administration Gemtesa (Vibegron) 0 ea 05/05/24 17:15 05/05/24 20:17 75 Mg Tablet PO 06/04/24 17:14 Not Given QDAY IVONNE Donepezil HCl 10 mg 05/03/24 21:00 05/05/24 20:15 Donepezil Hcl 5 Mg Tablet PO 06/02/24 20:59 Not Given HS IVONNE Iron Sucrose 200 mg 05/05/24 09:00 05/05/24 08:36 Iron Sucrose Cplx Inj 20 Mg/Ml Vial 5 Ml IVP 05/09/24 08:59 200 mg DAILY IVONNE Administration Lisinopril 40 mg 05/03/24 09:00 05/05/24 08:29 Lisinopril 20 Mg Tablet PO 06/02/24 08:59 40 mg QDAY IVONNE Administration Metoprolol Succinate 25 mg 05/02/24 23:15 05/05/24 20:15 Metoprolol Succinate Xl 25 Mg Tabcr PO 06/01/24 23:14 Not Given BID IVONNE Morphine Sulfate 2 mg 05/03/24 16:36 05/04/24 09:04 Morphine Sulf Inj 10 Mg/Ml Vial IVP 05/08/24 16:35 2 mg Q4HR PRN Administration Pain 7-10 Ondansetron HCl 4 mg 05/02/24 22:38 Ondansetron Inj 2 Mg/Ml Inj 2 Ml IV 06/01/24 22:37 Q6H PRN NAUSEA OR VOMITING Protocol Oxycodone/Acetaminophen 1 tab 05/02/24 22:38 05/02/24 23:54 Oxycodone/Apap 5/325 Tablet PO 05/07/24 22:37 1 tab Q6H PRN Administration PAIN SCALE 4-6 (Moderate Pantoprazole Sodium 40 mg 05/03/24 09:00 05/05/24 08:32 Pantoprazole Inj 40 Mg Vial IVP 06/02/24 08:59 40 mg QDAY IVONNE Administration Sucralfate 1 gm 05/05/24 21:15 05/06/24 05:34 Sucralfate Susp 1 Gm/10 Ml Udc PO 06/04/24 21:14 1 gm QID IVONNE Administration Plan The patient is a 89 year-old female with PMHx of HTN, dementia, admitted for right hip fracture following a ground-level fall. #Hemorrhagic gastritis Nursing stuff reported black stools, Hgb dropped from 10.2 to 9 EGD show hemorrhagic gastritis gastroenterology is following up the case will recommend to start patient on Carafate and Maalox 4 times daily Per gastroenterology recommendations Eliquis for DVT prophylaxis can be resumed 05/06/2024 : hemoglobin 8.4 no active signs of bleeding patient denied dizziness Plan: -Carafate 1 g 4 times daily -Maalox 15 mL 4 times daily -IV Protonix 40 mg daily -Follow-up H&H -Transfuse if hemoglobin less than 7 #Acute Intertrochanteric fracture of right hip s/p ORIF, post op day 2. #S/P ground level fall. The patient presented following ground-level fall that happened this afternoon the kitchen. She does not remember event clearly. However denies LOC, head trauma, dizziness, lightheadedness prior, leading or during the event. XR right femur showed intertrochanteric fracture of right hip and a CT showed acute right hip fracture of superior inferior right pubic rami. Ambulates semi-indep at home, sometime requires assistance from her son. No obvious bony deformity on laceration on exam. Plan: - Continue Eliquis for DVT prophylaxis - physical therapy. ? Pain control. ? Orthopedic surgery consulted, appreciate recommendations. #Severe aortic stenosis. 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 #History of HTN. BNP 563 on admission. No history of heart failure. No signs or symptoms of fluid overload, clear lung exam, no LE edema or swelling bilaterally. Echo showed severe , Diastolic dysfunction stage I, EF 55 to 60% Plan: ? Continue home LISINOPRIL 40 mg daily ? Continue home METOPROLOL succinate 25 mg BID #History of dementia, mild. ? Continue donepezil HS. #Overactive bladder. ? Continue home VIBEGRON 10 mg HS. Health maintenance: Diet: regular. GI prophylaxis: PROTONIX. DVT prophylaxis: SCDs and Eliquis 2.5 twice daily Antibiotics: None CODE STATUS: Full code. Disposition: Post op day 2. Will anticipate discharge to SNF if patient remains stable in the next 24 to 48 hours. Patient discussed with my attending Dr Cyndy Marroquin MD PGY-3 Disclaimer: Despite multiple revisions, due to the dictation software being used, the document bellow may not be free of grammatical errors including phonetic/typographic errors. However, this does not deter from our commitment to providing health care in the patient's best interest in mind. Attending Provider Attestation/Addendum Patient is status post ORIF right femur on Eliquis. The patient developed GI bleed secondary to hemorrhagic gastritis now resolved. Patient will continue on PPI and sucralfate -Monitor hemoglobin and hematocrit. I discussed with and supervised the resident physician who took care of this patient. I agree with the assessment and plan as above.
[2024-05-06] MEDS: METOPROLOL SUCCINATE XL 25 MG TABCR PO ×2 (08:22→20:40)
[2024-05-06] MEDS: Lisinopril 20 MG TABLET 40 MG PO (08:22)
[2024-05-06] MEDS: HYDROcodone/APAP 5/325 TABLET 1 TAB PO (08:22)
[2024-05-06] MEDS: PANTOPRAZOLE INJ 40 MG VIAL IVP (08:23)
[2024-05-06] MEDS: IRON SUCROSE CPLX INJ 20 MG/ML VIAL 5 ML 200 MG IVP (08:29)
[2024-05-06] MEDS: POLYETHYLENE GLYCOL 17 GM PACKET PO (12:00)
--- NOTE | 2024-05-06 16:40 | ESPR_ITS ---
Documentation for date of: 05/06/24 Subjective Subjective Interval history: Patient is evaluated at the bedside, reports no shortness of breath or pain, patient is s/p surgery, started on Eliquis for DVT prophylaxis, hemoglobin downtrending, patient was also found to have severe aortic stenosis, the patient reiterates that she feels fine and did not know if she has any leaky valves , mechanical fall, reported no syncope or vertigo. Noted uptrending sodium and chloride, recommend keeping IV fluids less than 2 L/day. Agree with continuing IV iron sucrose daily to replenish IV iron stores. Continue lisinopril and metoprolol. Exam Vital Signs Temp Pulse Resp BP Pulse Ox O2 Del Method O2 Flow Rate 97.1 F 85 18 140/82 H 96 Nasal Cannula 2 05/06/24 12:00 05/06/24 12:00 05/06/24 12:00 05/06/24 12:00 05/06/24 12:00 05/06/24 12:00 05/06/24 12:00 Narrative Exam GENERAL: A&Ox3 elderly female, Awake, Not in acute distress NEURO: no focal neurological deficits HEENT: Atraumatic, Normocephalic. mucous membranes moist. Eyes open, symmetrical, & clear HEART: loud holosytolic murmur heard at the aortic region LUNGS: Clear to auscultation with no wheezing or crackles. ABDOMEN: soft, non-distended, non-tender, bowel sounds heard, no guarding or rebound tenderness SKIN: No Rash or ecchymoses EXTREMITIES: No edema, tenderness, able to move all 4 extremities, pedal pulses palpated, right hip surgery site clean and dressing is dry Objective Labs 05/06/24 05:18 05/06/24 05:18 Labs: Laboratory Results - last 24 hr 05/06/24 05:18 WBC 4.8 RBC 2.66 L Hgb 8.4 L Hct 25.9 L MCV 97 MCH 31.6 MCHC 32.4 RDW Std Deviation 46.5 H Plt Count 114 L D Neut % (Auto) 76 Lymph % (Auto) 12 [place] % (Auto) 9 Eos % (Auto) 2 Baso % (Auto) 1 Neut # (Auto) 3.7 Lymph # (Auto) 0.6 L [place] # (Auto) 0.4 Eos # (Auto) 0.1 Baso # (Auto) 0.0 Immature Gran # (Auto) 0.02 H Absolute Nucleated RBC 0.00 Immature Gran % 0 Nucleated RBC % 0 Sodium 146 H Potassium 4.0 Chloride 111 H Carbon Dioxide 28.4 Anion Gap 7 BUN 20 Creatinine 0.6 Estim Creat Clear Calc 62.1 eGFR > 60 BUN/Creatinine Ratio 33 H Glucose 92 Calculated Osmolality 293 Calcium 8.1 L Corrected Calcium 8.8 Phosphorus 2.4 Magnesium 2.0 Total Bilirubin 0.5 AST 20 ALT 9 L Alkaline Phosphatase 46 Total Protein 5.3 L Albumin 3.1 L Globulin 2.2 L Albumin/Globulin Ratio 1.4 Quality Measures Quality Measures VTE prophylaxis Advance care planning discussed with:: patient Assessment & Plan Assessment Current Active Medications: Generic Name Dose Route Start Last Admin Trade Name Freq PRN Reason Stop Dose Admin Acetaminophen 650 mg 05/02/24 22:38 Acetaminophen 325 Mg Tablet PO 06/01/24 22:37 Q6H PRN PAIN SCALE 1-3 (mild Acetaminophen 650 mg 05/02/24 22:38 Acetaminophen 325 Mg Tablet PO 06/01/24 22:37 Q6H PRN Fever >100.4 Hydrocodone Bitart/Acetaminophen 1 tab 05/06/24 10:23 Hydrocodone/Apap 5/325 Tablet PO 05/08/24 16:35 Q4HR PRN PAIN SCALE 4-6 (Moderate Al Hydrox/Mg Hydrox/Simethicone 15 ml 05/05/24 21:00 05/06/24 11:59 Mg Hyd/Al Hyd/Amrit (Maalox Reg) Susp 30 Ml Udc PO 06/04/24 20:59 15 ml QID IVONNE Administration Apixaban 2.5 mg 05/04/24 10:45 05/04/24 20:41 Apixaban 2.5 Mg Tablet PO 06/03/24 10:44 2.5 mg BID IVONNE Administration Gemtesa (Vibegron) 0 ea 05/05/24 17:15 05/06/24 08:46 75 Mg Tablet PO 06/04/24 17:14 1 tablet QDAY IVONNE Administration Donepezil HCl 10 mg 05/03/24 21:00 05/05/24 20:15 Donepezil Hcl 5 Mg Tablet PO 06/02/24 20:59 Not Given HS IVONNE Iron Sucrose 200 mg 05/05/24 09:00 05/06/24 08:29 Iron Sucrose Cplx Inj 20 Mg/Ml Vial 5 Ml IVP 05/09/24 08:59 200 mg DAILY IVONNE Administration Lisinopril 40 mg 05/03/24 09:00 05/06/24 08:22 Lisinopril 20 Mg Tablet PO 06/02/24 08:59 40 mg QDAY IVONNE Administration Metoprolol Succinate 25 mg 05/02/24 23:15 05/06/24 08:22 Metoprolol Succinate Xl 25 Mg Tabcr PO 06/01/24 23:14 25 mg BID IVONNE Administration Ondansetron HCl 4 mg 05/02/24 22:38 Ondansetron Inj 2 Mg/Ml Inj 2 Ml IV 06/01/24 22:37 Q6H PRN NAUSEA OR VOMITING Protocol Oxycodone/Acetaminophen 1 tab 05/06/24 10:24 Oxycodone/Apap 5/325 Tablet PO 05/07/24 22:37 Q6H PRN PAIN SCALE 7-10 (Severe Pantoprazole Sodium 40 mg 05/03/24 09:00 05/06/24 08:23 Pantoprazole Inj 40 Mg Vial IVP 06/02/24 08:59 40 mg QDAY IVONNE Administration Polyethylene Glycol 17 gm 05/06/24 12:00 05/06/24 12:00 Polyethylene Glycol 17 Gm Packet PO 06/05/24 11:59 17 gm QDAY IVONNE Administration Sucralfate 1 gm 05/05/24 21:15 05/06/24 11:59 Sucralfate Susp 1 Gm/10 Ml Udc PO 06/04/24 21:14 1 gm QID IVONNE Administration Plan Ms. Sykes is a 89 year-old female with past medical history significant for HTN and dementia presented to the ED after ground level fall, Pt is admitted for right hip fracture. Cardiology is consulted for new diagnosed severe aortic stenosis #Severe aortic stenosis. #Diastolic heart failure- HFpEF 55-60%. -On admission BNP 563. No known history of heart failure. No signs or symptoms of fluid overload, clear lung exam, no LE edema or swelling bilaterally. -Patient denies orthopnea, chest pain, shortness of breath, dyspnea on exertion, fatigue or any limitations prior to fall and hip fracture. Echo done on 05/04/24 findings include Severe aortic stenosis noted with severely calcified aortic valve. V-max of 4.9 m/s, mean PG of 70 mmHg and aortic valve area of 0.5 cm?. Max PG is 95 mmHg. Trace to mild AI. LV function appears to be normal at 55 to 60%. Moderate LVH. Diastolic dysfunction stage I. Normal RV size and function. Moderately increased RVSP at 55 mmHg. LV appears normal with mild-mod LVH. EF is 55-60% Diastolic dysfunction is present. RV appears reduced in function with RVSP moderately increased RVSP 55 mmHg Moderately dilated LA and mildly dilated RA. Moderate MAC with mild to moderate MR. Moderate TR. Moderately elevated RVSP at 55 mmHg. No pericardial effusion Plan: -Given her age patient is mostly not a candidate for surgical aortic valve replacement and will need possible TAVR and will start workup for the same. To evaluate her candidacy for both procedures patient will need a left and right cardiac catheterization, CT TAVR as well as cardiothoracic surgery consult which can be arranged as outpatient. -Follow-up outpatient with cardiology, patient will need full workup to be evaluated for TAVR. #History of HTN. -BP is well controlled with home lisinopril and metoprolol #Acute Anemia -Hgb 9.1, Hct 27.9 baseline Hgb appears to be 12-23 -Likely secondary to blood loss during surgery -Pt is started on Iron sucrose daily monitor CBC daily #Acute Intertrochanteric fracture of right hip s/p ORIF, post op day 2. #S/P ground level fall. -The patient presented following ground-level fall that happened this afternoon the kitchen. -She does not remember event clearly. However denies LOC, head trauma, dizziness, lightheadedness prior, leading or during the event. -XR right femur showed intertrochanteric fracture of right hip and a CT showed acute right hip fracture of superior inferior right pubic rami. -Ambulates semi-indep at home, sometime requires assistance from her son. -No obvious bony deformity on laceration on exam. -Eliquis for DVT prophylaxis. -physical therapy. -Pain control. -Pt is s/p ORIF post op day 2 #History of dementia, mild. -Continue donepezil HS. #Overactive bladder. -Continue home VIBEGRON 10 mg HS. Assessment and plan discussed with my attending physician Dr. Zackery Craig (PGY-2)- Internal medicine resident Attending Provider Attestation/Addendum I have personally seen and examined the patient separately on the above date of service and discussed the plan of care with the resident. I reviewed the resident Dr. Liam Merida consultation progress note and agree with the resident findings and plan in the note above and have also edited the documentation to reflect my findings and plan. Ezekiel Vizcarra M.D. Interventional Cardiology
[2024-05-06] MEDS: APIXABAN 2.5 MG TABLET PO (20:40)
[2024-05-06] MEDS: DONEPEZIL HCL 5 MG TABLET 10 MG PO (20:40)
[2024-05-06] MEDS: bisacodyL 10 MG SUPP PR (21:04)
--- NOTE | 2024-05-06 22:27 | ESPR_ITS ---
Documentation for date of: 05/06/24 Subjective Subjective Interval history: Patient evaluated hemoglobin hematocrit 8.4 and 25.9 Upper endoscopy showed hemorrhagic gastritis no ulceration Can start the patient on low-dose Eliquis if necessary Exam Vital Signs Temp Pulse Resp BP Pulse Ox O2 Del Method O2 Flow Rate 98.6 F 70 16 153/86 H 96 Nasal Cannula 2 05/06/24 20:00 05/06/24 20:40 05/06/24 20:00 05/06/24 20:40 05/06/24 20:00 05/06/24 20:00 05/06/24 20:00 Objective Labs 05/06/24 05:18 05/06/24 05:18 Labs: Laboratory Results - last 24 hr 05/06/24 05:18 WBC 4.8 RBC 2.66 L Hgb 8.4 L Hct 25.9 L MCV 97 MCH 31.6 MCHC 32.4 RDW Std Deviation 46.5 H Plt Count 114 L D Neut % (Auto) 76 Lymph % (Auto) 12 [place] % (Auto) 9 Eos % (Auto) 2 Baso % (Auto) 1 Neut # (Auto) 3.7 Lymph # (Auto) 0.6 L [place] # (Auto) 0.4 Eos # (Auto) 0.1 Baso # (Auto) 0.0 Immature Gran # (Auto) 0.02 H Absolute Nucleated RBC 0.00 Immature Gran % 0 Nucleated RBC % 0 Sodium 146 H Potassium 4.0 Chloride 111 H Carbon Dioxide 28.4 Anion Gap 7 BUN 20 Creatinine 0.6 Estim Creat Clear Calc 62.1 eGFR > 60 BUN/Creatinine Ratio 33 H Glucose 92 Calculated Osmolality 293 Calcium 8.1 L Corrected Calcium 8.8 Phosphorus 2.4 Magnesium 2.0 Total Bilirubin 0.5 AST 20 ALT 9 L Alkaline Phosphatase 46 Total Protein 5.3 L Albumin 3.1 L Globulin 2.2 L Albumin/Globulin Ratio 1.4 Impressions Impression: Hemorrhagic gastritis Can start very low-dose Eliquis if necessary Assessment & Plan A&P Narrative Melena leading to anemia of blood loss and the patient on Eliquis which has been held Plan Consent obtained for fiberoptic esophagogastroduodenoscopy with possible therapeutic intervention possible biopsy under intravenous moderate sedation proceed with the procedure If the hemoglobin drops further may consider doing PRBC transfusion Other medical problems include Right hip intertrochanteric fracture status post ORIF Dementia Essential hypertension Severe aortic stenosis Moderate mitral regurgitation Thank you very much for the opportunity to participate in care of this patient Time Spent With Patient Time: Total time spent is greater than 50% in coordination of care (as documented) at patient's floor/unit and/or counseling patient:
[2024-05-07 04:00] VITALS: BP 118/97; PULSE 98; RESP 18; TEMP 36.6; O2SAT 91
[2024-05-07] MEDS: MG HYD/AL HYD/SIME (Maalox Reg) SUSP 30 ML UDC 15 ML PO ×2 (05:16→12:56)
[2024-05-07] MEDS: SUCRALFATE SUSP 1 GM/10 ML UDC PO ×2 (05:16→12:19)
[2024-05-07 05:45] LABS: Alanine Aminotransferase 8 U/L (10-49); Albumin, Serum 3.2 gm/dL (3.4-4.8); Albumin/Globulin Ratio 1.3 (1.2-2.2); Alkaline Phosphatase 51 U/L (46-116); Anion Gap 6 (7-16); Aspartate Amino Transferase 17 U/L (0-34); BUN/Creatinine Ratio 30 Ratio (12-20); Bilirubin,Total 0.6 mg/dL (0.3-1.2); Blood Urea Nitrogen 18 mg/dL (9-23); Calcium 8.3 mg/dL (8.3-10.6); Calcium (Corrected) 8.9 mg/dL (8.5-10.1); Carbon Dioxide 31.1 mMol/L (20.0-31.0); Chloride 109 mMol/L (98-107); Creatinine (Component) 0.6 mg/dL (0.6-1.3); Estimated Creatinine Clearance 62.1 mL/min (>60); Globulin 2.4 gm/dL (2.3-3.5); Glucose 111 mg/dL (74-106); Osmolality,Calculated 293 (275-295); Potassium 4.1 mMol/L (3.4-5.1); Sodium 146 mMol/L (136-145); Total Protein 5.6 gm/dL (5.7-8.2); eGFR > 60 See Note
[2024-05-07 06:03] LABS: Basophils % (Auto) 0 % (0-2.5); Eosinophils # (Auto) 0.1 Thou/mm3 (0.0-0.5); Eosinophils % (Auto) 1 % (0-10); Hematocrit 28.5 % (36.0-46.0); Hemoglobin 9.3 g/dL (12.0-16.0); Immature Granulocytes % (Auto) 0 % (0-0); Immature Granulocytes Auto 0.02 Thou/mm3 (0.00-0.00); Lymphocytes # (Auto) 0.7 Thou/mm3 (1.0-4.8); Lymphocytes % (Auto) 11 % (10-50); Mean Corpuscular HGB Conc 32.6 g/dl (31.0-37.0); Mean Corpuscular Hemoglobin 31.6 pg (25.0-35.0); Mean Corpuscular Volume 97 fL (80-100); Monocytes # (Auto) 0.6 Thou/mm3 (0.0-0.8); Monocytes % (Auto) 8 % (0-12); Neutrophils # (Auto) 5.5 Thou/mm3 (1.8-7.7); Neutrophils % (Auto) 79 % (37-80); Nucleated Red Blood Cell % 0 /100 WBC (0); Platelet Count 189 Thou/mm3 (140-440); RDW Standard Deviation 46.3 fL (36.4-46.3); Red Blood Count 2.94 Miln/mm3 (4.00-5.20); White Blood Count 6.9 Thou/mm3 (3.6-11.0)
[2024-05-07 08:00] VITALS: BP 136/86; PULSE 84; RESP 17; TEMP 36.1; O2SAT 92
[2024-05-07] MEDS: APIXABAN 2.5 MG TABLET PO (08:51)
[2024-05-07 08:52] VITALS: BP 124/77; PULSE 75
[2024-05-07] MEDS: Lisinopril 20 MG TABLET 40 MG PO (08:52)
[2024-05-07 08:54] VITALS: BP 124/77; PULSE 75
[2024-05-07] MEDS: METOPROLOL SUCCINATE XL 25 MG TABCR PO (08:54)
[2024-05-07] MEDS: PANTOPRAZOLE INJ 40 MG VIAL IVP (09:53)
[2024-05-07] MEDS: IRON SUCROSE CPLX INJ 20 MG/ML VIAL 5 ML 200 MG IVP (09:53)
--- NOTE | 2024-05-07 10:08 | ESPR_ITS ---
Documentation for date of: 05/07/24 Subjective Subjective Interval history: Patient is evaluated at the bedside, status post surgery, currently on Eliquis for DVT prophylaxis. Hemoglobin 9.3 today, stable patient has no current complaints. Explained at bedside to the patient regarding her aortic stenosis and stressed upon the importance of following up with cardiology outpatient for further workup. Patient received IV iron infusion for 3 days, will continue lisinopril and metoprolol. Exam Vital Signs Temp Pulse Resp BP Pulse Ox O2 Del Method O2 Flow Rate 97.0 F 75 17 124/77 92 L Room Air 2 05/07/24 08:00 05/07/24 08:54 05/07/24 08:00 05/07/24 08:54 05/07/24 08:00 05/07/24 08:00 05/06/24 23:54 Narrative Exam GENERAL: A&Ox3 elderly female, Awake, Not in acute distress NEURO: no focal neurological deficits HEENT: Atraumatic, Normocephalic. mucous membranes moist. Eyes open, symmetrical, & clear HEART: loud holosytolic murmur heard at the aortic region LUNGS: Clear to auscultation with no wheezing or crackles. ABDOMEN: soft, non-distended, non-tender, bowel sounds heard, no guarding or rebound tenderness SKIN: No Rash or ecchymoses EXTREMITIES: No edema, tenderness, able to move all 4 extremities, pedal pulses palpated, right hip surgery site clean and dressing is dry Objective Labs 05/07/24 04:50 05/07/24 04:50 Labs: Laboratory Results - last 24 hr 05/07/24 04:50 WBC 6.9 D RBC 2.94 L Hgb 9.3 L Hct 28.5 L MCV 97 MCH 31.6 MCHC 32.6 RDW Std Deviation 46.3 Plt Count 189 D Neut % (Auto) 79 Lymph % (Auto) 11 [place] % (Auto) 8 Eos % (Auto) 1 Baso % (Auto) 0 Neut # (Auto) 5.5 Lymph # (Auto) 0.7 L [place] # (Auto) 0.6 Eos # (Auto) 0.1 Baso # (Auto) 0.0 Immature Gran # (Auto) 0.02 H Absolute Nucleated RBC 0.00 Immature Gran % 0 Nucleated RBC % 0 Sodium 146 H Potassium 4.1 Chloride 109 H Carbon Dioxide 31.1 H Anion Gap 6 L BUN 18 Creatinine 0.6 Estim Creat Clear Calc 62.1 eGFR > 60 BUN/Creatinine Ratio 30 H Glucose 111 H Calculated Osmolality 293 Calcium 8.3 Corrected Calcium 8.9 Total Bilirubin 0.6 AST 17 ALT 8 L Alkaline Phosphatase 51 Total Protein 5.6 L Albumin 3.2 L Globulin 2.4 Albumin/Globulin Ratio 1.3 Quality Measures Quality Measures VTE prophylaxis Advance care planning discussed with:: patient Assessment & Plan Assessment Current Active Medications: Generic Name Dose Route Start Last Admin Trade Name Freq PRN Reason Stop Dose Admin Acetaminophen 650 mg 05/02/24 22:38 Acetaminophen 325 Mg Tablet PO 06/01/24 22:37 Q6H PRN PAIN SCALE 1-3 (mild Acetaminophen 650 mg 05/02/24 22:38 Acetaminophen 325 Mg Tablet PO 06/01/24 22:37 Q6H PRN Fever >100.4 Hydrocodone Bitart/Acetaminophen 1 tab 05/06/24 10:23 Hydrocodone/Apap 5/325 Tablet PO 05/08/24 16:35 Q4HR PRN PAIN SCALE 4-6 (Moderate Al Hydrox/Mg Hydrox/Simethicone 15 ml 05/05/24 21:00 05/07/24 05:16 Mg Hyd/Al Hyd/Amrit (Maalox Reg) Susp 30 Ml Udc PO 06/04/24 20:59 15 ml QID IVONNE Administration Apixaban 2.5 mg 05/04/24 10:45 05/07/24 08:51 Apixaban 2.5 Mg Tablet PO 06/03/24 10:44 2.5 mg BID IVONNE Administration Gemtesa (Vibegron) 0 ea 05/05/24 17:15 05/07/24 08:55 75 Mg Tablet PO 06/04/24 17:14 1 tablet QDAY IVONNE Administration Donepezil HCl 10 mg 05/03/24 21:00 05/06/24 20:40 Donepezil Hcl 5 Mg Tablet PO 06/02/24 20:59 10 mg HS IVONNE Administration Iron Sucrose 200 mg 05/05/24 09:00 05/07/24 09:53 Iron Sucrose Cplx Inj 20 Mg/Ml Vial 5 Ml IVP 05/09/24 08:59 200 mg DAILY IVONNE Administration Lisinopril 40 mg 05/03/24 09:00 05/07/24 08:52 Lisinopril 20 Mg Tablet PO 06/02/24 08:59 40 mg QDAY IVONNE Administration Metoprolol Succinate 25 mg 05/02/24 23:15 05/07/24 08:54 Metoprolol Succinate Xl 25 Mg Tabcr PO 06/01/24 23:14 25 mg BID IVONNE Administration Ondansetron HCl 4 mg 05/02/24 22:38 Ondansetron Inj 2 Mg/Ml Inj 2 Ml IV 06/01/24 22:37 Q6H PRN NAUSEA OR VOMITING Protocol Oxycodone/Acetaminophen 1 tab 05/06/24 10:24 Oxycodone/Apap 5/325 Tablet PO 05/07/24 22:37 Q6H PRN PAIN SCALE 7-10 (Severe Pantoprazole Sodium 40 mg 05/03/24 09:00 05/07/24 09:53 Pantoprazole Inj 40 Mg Vial IVP 06/02/24 08:59 40 mg QDAY IVONNE Administration Polyethylene Glycol 17 gm 05/06/24 12:00 05/07/24 09:56 Polyethylene Glycol 17 Gm Packet PO 06/05/24 11:59 Not Given QDAY IVONNE Sucralfate 1 gm 05/05/24 21:15 05/07/24 05:16 Sucralfate Susp 1 Gm/10 Ml Udc PO 06/04/24 21:14 1 gm QID IVONNE Administration Plan Ms. Sykes is a 89 year-old female with past medical history significant for HTN and dementia presented to the ED after ground level fall. Patient is admitted for right hip fracture. Cardiology is consulted for new diagnosed severe aortic stenosis #Severe aortic stenosis. #Diastolic heart failure- HFpEF 55-60%. -On admission BNP 563. No known history of heart failure. No signs or symptoms of fluid overload, clear lung exam, no LE edema or swelling bilaterally. -Patient denies orthopnea, chest pain, shortness of breath, dyspnea on exertion, fatigue or any limitations prior to fall and hip fracture. Echo done on 05/04/24 findings include Severe aortic stenosis noted with severely calcified aortic valve. V-max of 4.9 m/s, mean PG of 70 mmHg and aortic valve area of 0.5 cm?. Max PG is 95 mmHg. Trace to mild AI. LV function appears to be normal at 55 to 60%. Moderate LVH. Diastolic dysfunction stage I. Normal RV size and function. Moderately increased RVSP at 55 mmHg. LV appears normal with mild-mod LVH. EF is 55-60% Diastolic dysfunction is present. RV appears reduced in function with RVSP moderately increased RVSP 55 mmHg Moderately dilated LA and mildly dilated RA. Moderate MAC with mild to moderate MR. Moderate TR. Moderately elevated RVSP at 55 mmHg. No pericardial effusion Plan: -Given her age patient is mostly not a candidate for surgical aortic valve replacement and will need possible TAVR and will start workup for the same. To evaluate her candidacy for both procedures patient will need a left and right cardiac catheterization, CT TAVR as well as cardiothoracic surgery consult which can be arranged as outpatient. -Follow-up outpatient with cardiology, patient will need full workup to be evaluated for TAVR. #History of HTN. -BP is well controlled with home lisinopril and metoprolol #Acute Anemia -Hgb 9.1, Hct 27.9 baseline Hgb appears to be 12-23 -Likely secondary to blood loss during surgery -Pt is started on Iron sucrose daily, patient received IV iron infusion for 3 days monitor CBC daily #Acute Intertrochanteric fracture of right hip s/p ORIF, post op day 4. #S/P ground level fall. -The patient presented following ground-level fall that happened this afternoon the kitchen. -She does not remember event clearly. However denies LOC, head trauma, dizziness, lightheadedness prior, leading or during the event. -XR right femur showed intertrochanteric fracture of right hip and a CT showed acute right hip fracture of superior inferior right pubic rami. -Ambulates semi-indep at home, sometime requires assistance from her son. -No obvious bony deformity on laceration on exam. -Eliquis for DVT prophylaxis. -physical therapy. -Pain control. -Pt is s/p ORIF post op day 4 #History of dementia, mild. -Continue donepezil HS. #Overactive bladder. -Continue home VIBEGRON 10 mg HS. Assessment and plan discussed with my attending physician Dr. Zackery Corey PGY1 Internal medicine Attending Provider Attestation/Addendum I have personally seen and examined the patient separately on the above date of service and discussed the plan of care with the resident. I reviewed the resident Dr. Lucie Corey consultation progress note and agree with the resident findings and plan in the note above and have also edited the documentation to reflect my findings and plan. Ezekiel Vizcarra M.D. Interventional Cardiology
--- NOTE | 2024-05-07 10:30 | PC.SS ---
Addendum entered by Marifer Elias 05/07/24 12:37: Nanci at [facility] also updated on ETA Addendum entered by Marifer Elias 05/07/24 12:36: SS spoke to pt son Addie in regards to transport, they are unable to cover [facility]. [facility] will be utilized. ETA with [facility] is 1545. Elías made aware. Orquidea RN also made aware. Original Note: SS met with pt to discuss DC plan to [facility]. Per pt she wishes to go home instead. SS contacted pt son Elías, who pt lives with and he stated pt needs to do to [facility] for short term rehab. SS went back to speak with pt and explain what son stated. Pt stated ok. She is in agreement with DC plan to [facility] for short term. SS reached out to Nanci at [facility] who stated they are ready for pt today. SS currently pending DC orders to set up transport.
--- NOTE | 2024-05-07 10:43 | ESDS_ITS ---
Planned Discharge Date 05/07/24 DS: Providers Provider Date of admission: 05/02/24 22:38 Primary care physician: Physician No Primary/Family Admitting Provider: Bradford Braga MD Attending Provider on Admission: Brcue Cr DO Consults: 05/02/24 21:52 Consult to Orthopedic Stat Comment: Consulting Provider: Luc Glass 05/03/24 16:58 Referral Physical Therapy Routine Comment: Physician Instructions: 05/04/24 14:59 Consult to Cardiology Routine Comment: Consulting Provider: Ezekiel Vizcarra 05/05/24 09:07 Consult to Gastroenterology Stat Comment: GIB Consulting Provider: Sarina Marshall Attending Provider on DC: Xin Us MD Discharging Provider: Xin Us MD DS: Diagnosis Problem List Completed Was Problem List Reviewed/Reconciled?: Yes Hospital Course Hospital Course Hospital course: Ms. Sykes is a is a 89 year-old female with PMHx of HTN, dementia, admitted for right hip fracture following a ground-level fall on 05/02/24. XR right femur showed intertrochanteric fracture of right hip and a CT showed acute right hip fracture of superior inferior right pubic rami. Orthopedics was consulted, and performed ORIF on 05/03/24. However, hospital stay was complicated by bloody stools and confirmed to have hemorrhagic gastritis on EGD. Cardiology was also consulted for new aortic stenosis murmur. Due to her age, patient is a likely not a candidate for surgical aortic valve replacement, but would possibly benefit from a TAVR and will have to f/u with cardioogy outpt for a left and right cardiac catheterization for further evaulation. Patient will be discharged on Carafate, Maalox, Protonix, and will start Eliquis for DVT prophylaxis. Pt seen and examined at bedside. Pt denies any complaints. Pt is medically cleared to be discharged today with the following instructions: Please take your new medications as prescribed: Sucralfate 1g and Malaaox 15ml four times daily, Pantoprazole 40mg once daily, Miralax and Protonix daily for constipation as needed, and Eliquis 2.5 mg twice daily, Ferrous Sulfate once daily for your anemia, and [place] as needed for pain Please take your other home medications as prescribed Please see your PCP, manager telemarketing, Dr. Vizcarra, GI, Dr. Marshall, and orthopedist, Dr. Glass within 1-2 weeks Hospital discharge diagnoses treated during hospital stay: #Hemorrhagic gastritis #Acute Intertrochanteric fracture of right hip s/p ORIF, post op day 4 #S/P ground level fall #Severe aortic stenosis. 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 #History of HTN. #History of dementia, mild. #Overactive bladder. Patient's care and plan discussed with my attending, Dr. Tricia Us MD PGY-2 Status at Discharge Cognitive/behavioral status at discharge: stable Time Spent with Patient Time attestation: Total time spent providing and/or coordinating discharge services: 35 Exam Vital Signs Temp Pulse Resp BP Pulse Ox O2 Del Method O2 Flow Rate 97.0 F 75 17 124/77 92 L Room Air 2 05/07/24 08:00 05/07/24 08:54 05/07/24 08:00 05/07/24 08:54 05/07/24 08:00 05/07/24 08:00 05/06/24 23:54 Narrative Exam GENERAL: Patient is an elderly female, in NAD, laying comfortably in bed. HEENT: NC/AT. PERRLA. MMM HEART: 3/6 systolic murmur heard on R substernal chest LUNGS: Clear to auscultation with no wheezing or crackles. ABDOMEN: soft, non-distended, non-tender, BS+ SKIN: No Rash or ecchymoses EXTREMITIES: No edema, tenderness, able to move all 4 extremities, pedal pulses palpated, right hip surgery site clean and dressing is dry NEURO: A&O x 3, able to move all extremities except for right leg. Discharge Plan Plan Patient Disposition: Xfer Skilled Nsg Fac (SNF) Patient condition on transfer: Stable Prescriptions/Referrals Prescriptions/Med Rec: New sucralfate 100 mg/mL Suspension 1 g PO QID 30 Days Qty: 1200 0RF Eliquis 2.5 mg Tablet 2.5 mg PO BID 30 Days Qty: 60 0RF polyethylene glycol 3350 [HealthyLax] 17 gram Powder In Packet 17 g PO QDAY 30 Days Qty: 100 0RF alum-mag hydroxide-simeth [Mag-Al Plus] 200-200-20 mg/5 mL Suspension 15 ml PO QID 30 Days Qty: 1800 0RF pantoprazole 40 mg tablet,delayed release (DR/EC) 40 mg PO QDAY Qty: 30 0RF hydrocodone-acetaminophen 5-325 mg tablet 1 tab PO BID MDD 10mg Qty: 14 0RF sennosides [senna] 8.6 mg tablet 8.6 mg PO QDAY PRN (Reason: constipation) Qty: 30 0RF ferrous sulfate 325 mg (65 mg iron) tablet,delayed release (DR/EC) 325 mg PO QDAY Qty: 30 0RF Continued Centrum Silver 0.4-300-250 mg-mcg-mcg Tablet 1 tab PO HS cholecalciferol (vitamin D3) [Vitamin D3] 125 mcg (5,000 unit) Tablet 125 mcg PO HS iron fum-vit C-ascorbate sod 65 mg iron- 125 mg Tablet 1 tab PO HS lisinopril 40 mg tablet 40 mg PO QDAY metoprolol succinate 25 mg tablet extended release 24 hr 25 mg PO Q12H Gemtesa 75 mg tablet 75 mg PO QDAY donepezil 10 mg tablet 10 mg PO HS Patient Comments: TAKE 1 TABLET BY MOUTH DAILY AT BEDTIME Referrals: Ezekiel Vizcarra MD [Physician] - Sarina Marshall MD [Physician] - No Primary/Family,Physician [Primary Care Provider] - Luc Glass MD [Physician] - Patient/Caregiver Discharge Instructions Other Discharge Activity Instructions:: Please take your new medications as prescribed: Sucralfate 1g and Malaaox 15ml four times daily, Pantoprazole 40mg once daily, Miralax and Protonix daily for constipation as needed, and Eliquis 2.5 mg twice daily, Ferrous Sulfate once daily for your anemia, and [place] as needed for pain Please take your other home medications as prescribed Please see your PCP, manager telemarketing, Dr. Vizcarra, GI, Dr. Marshall, and orth opedist, Dr. Glass within 1-2 weeks Education Materials: Hip Safety: Mastering Daily Tasks, Treating Gastritis, Aortic Stenosis, After a Hip Fracture: Common Questions, Fx Hip Surg Dc Print Language: Ukrainian Stand Alone Forms: Rosita Award Info., Patient Portal Info Letter Discharge Order Discharge Orders: Discharge (Routine); Ordered 05/07/24 Ordered By: Xin Us Quality Discharge Quality Measures VTE prophylaxis MD Attestestation MD Attestation I discussed with and supervised the resident physician who took care of this patient. I agree with the assessment and discharge plan as above. Follow-up with PCP and orthopedic surgeon as scheduled.
[2024-05-07 12:00] VITALS: BP 163/86; PULSE 84; RESP 17; TEMP 36.7; O2SAT 93
[2024-05-07 12:45] VITALS: BP 152/82
--- NOTE | 2024-05-07 15:20 | ESPR_ITS ---
Documentation for date of: 05/07/24 Subjective Subjective Interval history: Patient evaluated Hemoglobin hematocrit stable at 9.3 and 28.5 Okay to discharge patient home to be followed by the PCP Exam Vital Signs Temp Pulse Resp BP Pulse Ox O2 Del Method O2 Flow Rate 98.0 F 84 17 152/82 H 93 L Room Air 2 05/07/24 12:00 05/07/24 12:00 05/07/24 12:00 05/07/24 12:45 05/07/24 12:00 05/07/24 12:00 05/06/24 23:54 Objective Labs 05/07/24 04:50 05/07/24 04:50 Labs: Laboratory Results - last 24 hr 05/07/24 04:50 WBC 6.9 D RBC 2.94 L Hgb 9.3 L Hct 28.5 L MCV 97 MCH 31.6 MCHC 32.6 RDW Std Deviation 46.3 Plt Count 189 D Neut % (Auto) 79 Lymph % (Auto) 11 [place] % (Auto) 8 Eos % (Auto) 1 Baso % (Auto) 0 Neut # (Auto) 5.5 Lymph # (Auto) 0.7 L [place] # (Auto) 0.6 Eos # (Auto) 0.1 Baso # (Auto) 0.0 Immature Gran # (Auto) 0.02 H Absolute Nucleated RBC 0.00 Immature Gran % 0 Nucleated RBC % 0 Sodium 146 H Potassium 4.1 Chloride 109 H Carbon Dioxide 31.1 H Anion Gap 6 L BUN 18 Creatinine 0.6 Estim Creat Clear Calc 62.1 eGFR > 60 BUN/Creatinine Ratio 30 H Glucose 111 H Calculated Osmolality 293 Calcium 8.3 Corrected Calcium 8.9 Total Bilirubin 0.6 AST 17 ALT 8 L Alkaline Phosphatase 51 Total Protein 5.6 L Albumin 3.2 L Globulin 2.4 Albumin/Globulin Ratio 1.3 Impressions Impression: Hemorrhagic gastritis Okay to discharge patient home to be followed by the PCP Assessment & Plan A&P Narrative Melena leading to anemia of blood loss and the patient on Eliquis which has been held Plan Consent obtained for fiberoptic esophagogastroduodenoscopy with possible therapeutic intervention possible biopsy under intravenous moderate sedation proceed with the procedure If the hemoglobin drops further may consider doing PRBC transfusion Other medical problems include Right hip intertrochanteric fracture status post ORIF Dementia Essential hypertension Severe aortic stenosis Moderate mitral regurgitation Thank you very much for the opportunity to participate in care of this patient Time Spent With Patient Time: Total time spent is greater than 50% in coordination of care (as documented) at patient's floor/unit and/or counseling patient:
--- NOTE | 2024-05-07 15:57 | PC.SS ---
PASSR was file exchanged to Nanci at [facility]
== END 2024-05-07 15:55 | disposition skilled nursing facility (03) | DRG 480 ==
LOC: SERX 21:54 → SERHOLD 22:47 → S3NX 05-03 00:35
PROVIDERS: Orthopaedic Surgery Adult Reconstructive Orthopaedic Surgery; Registered Nurse General Practice; Specialist; Student in an Organized Health Care Education/Training Program; Admitting Provider Student in an Organized Health Care Education/Training Program; Emergency Provider Emergency Medicine; Visit Provider Student in an Organized Health Care Education/Training Program
PROC: (CPT 27245; principal; 2024-05-03 16:30)
DX: S72.141A Displaced intertrochanteric fracture of right femur, initial encounter for closed fracture (principal); K29.71 Gastritis, unspecified, with bleeding; I50.30 Unspecified diastolic (congestive) heart failure; D62 Acute posthemorrhagic anemia; N17.9 Acute kidney failure, unspecified; I11.0 Hypertensive heart disease with heart failure; F03.A0 Unspecified dementia, mild, without behavioral disturbance, psychotic disturbance, mood disturbance, and anxiety; R79.89 Other specified abnormal findings of blood chemistry; E86.1 Hypovolemia; E86.0 Dehydration; N32.81 Overactive bladder; K59.00 Constipation, unspecified; D63.1 Anemia in chronic kidney disease; I08.0 Rheumatic disorders of both mitral and aortic valves; Z79.01 Long term (current) use of anticoagulants; Z79.899 Other long term (current) drug therapy; W18.30XA Fall on same level, unspecified, initial encounter; Y92.000 Kitchen of unspecified non-institutional (private) residence as the place of occurrence of the external cause
CPT/HCPCS: 36415; 70450; 71045; 72125; 72192; 73501; 73502; 73552; 76000; 80053; 80307; 81001; 83615; 83735; 83880; 84100; 84484; 85014; 85018; 85025; 85610; 85730; 87081; 87811; 93005; 93306; 96360; 96361; 96374; 97162; 99285; A4217; A4649; C1713; C1769; C1776; J0131; J0360; J1100; J1200; J1756; J2250; J2270; J2371; J2405; J2470; J2704; J3010; J3490; J7030; A9270

== ENCOUNTER 2024-06-01 10:49 | Outpatient (AMB) | payer MEDICARE, OTHER, SELFPAY ==
--- NOTE | 2024-06-01 11:33 | ORTHONT_ITS ---
Vital signs 06/01/24 11:34 BP 142/81 H Blood Pressure Source Automatic Cuff Blood Pressure Location Left Upper Arm Position Sitting Respiration 18 Pulse 70 Pulse Source Monitor Temp 96.4 F L Temp Source Temporal Artery Scan Pulse Oximetry (%) 94 L Oxygen Delivery Method Room Air Med/Allergies Allergies & Medications Allergies No Known Allergies Allergy (Verified 06/01/24 11:35) Medication Reconciliation cholecalciferol (vitamin D3) 125 mcg (5,000 unit) tablet (Vitamin D3) 125 mcg PO HS 06/18/20 [History Confirmed 06/01/24] ferrous fumarate-ascorbic acid-ascorbate sod 65 mg iron-125 mg tablet 1 tab PO HS 06/18/20 [History Confirmed 06/01/24] kxoajcxh-izh-uglqk acid 0.4 mg-lycopene 300 mcg-lutein 250 mcg tablet (Centrum Silver) 1 tab PO HS 06/18/20 [History Confirmed 06/01/24] donepezil 10 mg tablet 10 mg PO HS 05/03/24 [History Confirmed 06/01/24] lisinopril 40 mg tablet 40 mg PO QDAY 05/03/24 [History Confirmed 06/01/24] metoprolol succinate 25 mg tablet,extended release 24 hr 25 mg PO Q12H 05/03/24 [History Confirmed 06/01/24] vibegron 75 mg tablet (Gemtesa) 75 mg PO QDAY 05/03/24 [History Confirmed 06/01/24] aluminum-mag hydroxide-simethicone 200 mg-200 mg-20 mg/5 mL oral susp (Mag-Al Plus) 15 ml PO QID 30 days #1,800 mL 05/07/24 [Rx Confirmed 06/01/24] apixaban 2.5 mg tablet (Eliquis) 2.5 mg PO BID 30 days #60 tabs 05/07/24 [Rx Confirmed 06/01/24] ferrous sulfate 325 mg (65 mg iron) tablet,delayed release 325 mg PO QDAY #30 tabs 05/07/24 [Rx Confirmed 06/01/24] hydrocodone 5 mg-acetaminophen 325 mg tablet 1 tab PO BID #14 tabs 05/07/24 [Rx Confirmed 06/01/24] pantoprazole 40 mg tablet,delayed release 40 mg PO QDAY #30 tabs 05/07/24 [Rx Confirmed 06/01/24] polyethylene glycol 3350 17 gram oral powder packet (HealthyLax) 17 g PO QDAY 30 days #100 ea 05/07/24 [Rx Confirmed 06/01/24] sennosides 8.6 mg tablet (senna) 8.6 mg PO QDAY PRN constipation #30 tabs 05/07/24 [Rx Confirmed 06/01/24] sucralfate 100 mg/mL oral suspension 1 g (10 mL) PO QID 30 days #1,200 mL 05/07/24 [Rx Confirmed 06/01/24] Exam Exam Patient is in no acute distress and is cooperative with the examination today. Patient has a normal mood and affect. Breathing is nonlabored. In no respiratory distress. Bilateral extremities were evaluated and demonstrates sensation intact to light touch. Palpable pedal pulses are present. No significant edema is present. Right hip incision is clean dry intact. She is no pain with logroll. Lengths are equal. Assessment and Plan Problem List (1) Intertrochanteric fracture of right hip: Status: Acute Plan: Patient is an 89-year-old female with a right hip intertrochanteric fracture status post cephalomedullary nail. We will get x-rays to see what it looks like currently. She was not ambulating and long term facility for some reason. They started her recently and she has been doing well. We recommend continued aggressive physical therapy. We will see her in approximately 2 weeks with new x-rays Advanced Care Planning Discussion Advance care planning discussed with:: patient Office Procedures GNS Level of Care Nursing/Assessment Patient Status: Established Patient Nursing Assessment/Reassesment: Medication Reconciliation, Update PMH in EMR and Vital Signs Coordination of Care: Complex Care/Chronic Disease 5 or more, Education Complex Pt/Fam, Consent,records obtained, informed consent, Results/Orders obtained and Staff clarify orders Established Patient Charge Established Patient Point Assignment: 105 Established Patient Point Charge: EP Level 3 (80-115) AR Intake Visit Data Collection New Patient or Established: Established Patient (seen at [facility] within 3 years) Reason for Visit:: FOLLOW UP RIGHT HIP FRACTURE Electrician Maintenance Required: Yes Do You Feel Safe at Home: Yes Questionairres Past Medical History Past Medical History Have you ever been diagnosed with any of the following: Neurological Problems Cerebrovascular Accident (CVA): Yes (1994) Transient Ischemic Attacks (TIA): No Seizures: No Cardiology Problems Heart Murmur: Yes Hypercholesterolemia: Yes Congestive Heart Failure: No Hypertension: Yes Respiratory Problems Chronic Obstructive Pulmonary Disease (COPD): No Asthma: No Pneumonia: No Stomache/Intestinal Problems Hepatitis: No Gall Bladder Disease: Yes (HAD SURGERY) Hiatal Hernia: Yes (HAD SURGERY) Gastroesophageal Reflux Disease: Yes (MILD) Genital/Urinary Problems Renal Disease: No Reproductive Problems Previous Pregnancies: Yes (X1) Musculoskeletal Problems Arthritis: Yes Osteoporosis: Yes Fractures: Yes (FUSED ANKLE. WRIST, HIP SURGERIES) Head,Eye,Nose,Throat Problems Cataracts: Yes (BILATERAL) Endocrine Problems Diabetes Mellitus Type 1: No Diabetes Mellitus Type 2: No Blood Problems Anemia: Yes Sickle Cell Disease: No Clotting Problems: No Other Problems Falls: Yes (06/10/20) Blood Transfusions: Yes Blood Transfusion Reaction: No Anesthesia Reactions: No Organ Transplant: No Chicken Pox: Yes Measles: Yes Mumps: Yes Rubella (Czech Measles): Yes Cancer: No Surgical History Hysterectomy: Yes Subjective Visit Visit for: post op #1 and hip Immunization / Flu Flu Vaccine in the Last 12 Months: No Flu Vaccine Exclusion Criteria: No Exclusion Criteria History of Present Illness Chief complaint: RIGHT HIP FRACTURE Patient is 1 month out from a right cephalomedullary nail. She is doing reasonably well. They only started walking her recently. This is a little surprising as she was able to walk 15 feet hospital. She is still in a long term home Personal History Red flag PMH: none BMI Counceling provided: Yes Pain Pain level (0-10): 0 Ambulatory data Ambulatory device: other (specify) (WHEELCHAIR ) Treatments Improvement with PT: Yes Improvement with NSAIDS: yes Review of Systems Review of Systems: All systems negative unless otherwise noted in HPI.
[2024-06-01 11:34] VITALS: BP 142/81; PULSE 70; RESP 18; TEMP 35.8; O2SAT 94
== END 2024-06-01 11:49 | disposition home or self-care (01) ==
LOC: HODSRG 10:49
PROVIDERS: Supervising Provider Orthopaedic Surgery Adult Reconstructive Orthopaedic Surgery; Visit Provider Orthopaedic Surgery Adult Reconstructive Orthopaedic Surgery
DX: S72.141D Displaced intertrochanteric fracture of right femur, subsequent encounter for closed fracture with routine healing (principal); X58.XXXD Exposure to other specified factors, subsequent encounter; I10 Essential (primary) hypertension; E78.00 Pure hypercholesterolemia, unspecified; Z86.73 Personal history of transient ischemic attack (TIA), and cerebral infarction without residual deficits
CPT/HCPCS: 99213; G0463

== ENCOUNTER 2024-06-15 13:33 | Outpatient (AMB) | payer MEDICARE, OTHER, SELFPAY ==
--- NOTE | 2024-06-15 13:52 | ORTHONT_ITS ---
Vital signs 06/15/24 13:53 Height 1.65 m Height Method Stated Weight 73 kg Weight Measurement Method Estimated by Patient BMI 26.8 BP 155/89 H Blood Pressure Source Automatic Cuff Blood Pressure Location Right Upper Arm Position Sitting Respiration 18 Pulse 64 Pulse Source Monitor Temp 97.5 F Temp Source Temporal Artery Scan Pulse Oximetry (%) 98 Oxygen Delivery Method Room Air Med/Allergies Allergies & Medications Allergies No Known Allergies Allergy (Verified 06/15/24 14:04) Medication Reconciliation cholecalciferol (vitamin D3) 125 mcg (5,000 unit) tablet (Vitamin D3) 125 mcg PO HS 06/18/20 [History Confirmed 06/15/24] ferrous fumarate-ascorbic acid-ascorbate sod 65 mg iron-125 mg tablet 1 tab PO HS 06/18/20 [History Confirmed 06/15/24] amxenpax-hfi-sjfjl acid 0.4 mg-lycopene 300 mcg-lutein 250 mcg tablet (Centrum Silver) 1 tab PO HS 06/18/20 [History Confirmed 06/15/24] donepezil 10 mg tablet 10 mg PO HS 05/03/24 [History Confirmed 06/15/24] lisinopril 40 mg tablet 40 mg PO QDAY 05/03/24 [History Confirmed 06/15/24] metoprolol succinate 25 mg tablet,extended release 24 hr 25 mg PO Q12H 05/03/24 [History Confirmed 06/15/24] vibegron 75 mg tablet (Gemtesa) 75 mg PO QDAY 05/03/24 [History Confirmed 06/15/24] ferrous sulfate 325 mg (65 mg iron) tablet,delayed release 325 mg PO QDAY #30 tabs 05/07/24 [Rx Confirmed 06/15/24] hydrocodone 5 mg-acetaminophen 325 mg tablet 1 tab PO BID #14 tabs 05/07/24 [Rx Confirmed 06/15/24] pantoprazole 40 mg tablet,delayed release 40 mg PO QDAY #30 tabs 05/07/24 [Rx Confirmed 06/15/24] sennosides 8.6 mg tablet (senna) 8.6 mg PO QDAY PRN constipation #30 tabs 05/07/24 [Rx Confirmed 06/15/24] Exam Exam Patient is in no acute distress and is cooperative with the examination today. Patient has a normal mood and affect. Breathing is nonlabored. In no respiratory distress. Bilateral extremities were evaluated and demonstrates sensation intact to light touch. Palpable pedal pulses are present. No significant edema is present. Right hip incision is clean dry intact. She is no pain with logroll. Lengths are equal. Assessment and Plan Problem List (1) Intertrochanteric fracture of right hip: Status: Acute Plan: Patient is an 89-year-old female with a right hip intertrochanteric fracture status post cephalomedullary nail. X-rays demonstrate a cephalomedullary nail in good alignment position. The fracture is well-healed at this point Advanced Care Planning Discussion Advance care planning discussed with:: patient and child Office Procedures GNS Level of Care Nursing/Assessment Patient Status: Established Patient Nursing Assessment/Reassesment: Medication Reconciliation, Update PMH in EMR and Vital Signs Coordination of Care: Complex Care and Chronic Disease 1-5, Education Complex Pt/Fam, Consent,records obtained, informed consent, Results/Orders obtained and Staff clarify orders Established Patient Charge Established Patient Point Assignment: 95 Established Patient Point Charge: EP Level 3 (80-115) MA Intake Visit Data Collection New Patient or Established: Established Patient (seen at [facility] within 3 years) Reason for Visit:: F/U ON XRAYS Seen by Clinical Staff ONLY (RN/MA): No Verbal consent obtained for Telemed visit?: No Job Tracer Required: No PCP or OBGYN visit in last 3 months: Yes Hx Now: No Do You Feel Safe at Home: Yes Authorities Contacted: N/A Questionairres Past Medical History Past Medical History Have you ever been diagnosed with any of the following: Neurological Problems Cerebrovascular Accident (CVA): Yes (1994) Transient Ischemic Attacks (TIA): No Seizures: No Cardiology Problems Heart Murmur: Yes Hypercholesterolemia: Yes Congestive Heart Failure: No Hypertension: Yes Respiratory Problems Chronic Obstructive Pulmonary Disease (COPD): No Asthma: No Pneumonia: No Stomache/Intestinal Problems Hepatitis: No Gall Bladder Disease: Yes (HAD SURGERY) Hiatal Hernia: Yes (HAD SURGERY) Gastroesophageal Reflux Disease: Yes (MILD) Genital/Urinary Problems Renal Disease: No Reproductive Problems Previous Pregnancies: Yes (X1) Musculoskeletal Problems Arthritis: Yes Osteoporosis: Yes Fractures: Yes (FUSED ANKLE. WRIST, HIP SURGERIES) Head,Eye,Nose,Throat Problems Cataracts: Yes (BILATERAL) Endocrine Problems Diabetes Mellitus Type 1: No Diabetes Mellitus Type 2: No Blood Problems Anemia: Yes Sickle Cell Disease: No Clotting Problems: No Other Problems Falls: Yes (06/10/20) Blood Transfusions: Yes Blood Transfusion Reaction: No Anesthesia Reactions: No Organ Transplant: No Chicken Pox: Yes Measles: Yes Mumps: Yes Rubella (Citizen Of [place] Measles): Yes Cancer: No Surgical History Hysterectomy: Yes Subjective Visit Visit for: follow up visit and x-rays Immunization / Flu Flu Vaccine in the Last 12 Months: No Flu Vaccine Exclusion Criteria: No Exclusion Criteria History of Present Illness Chief complaint: F/U ON XRAYS Patient is 1 month out from a right cephalomedullary nail. She has not been walking very much. She is currently in a senior living facility Personal History Occupation: DISABLED Red flag PMH: BMI BMI Counceling provided: Yes Pain Pain level (0-10): 0 Associated signs & symptoms: none Ambulatory data Ambulatory device: other (specify) (WHEELCHAIR) Treatments Improvement with previous injections: No Improvement with PT: No Improvement with NSAIDS: no Review of Systems Review of Systems: All systems negative unless otherwise noted in HPI.
[2024-06-15 13:53] VITALS: BP 155/89; PULSE 64; RESP 18; TEMP 36.4; O2SAT 98; BMI 26.8
--- NOTE | 2024-06-15 14:13 | XR_ITS ---
Examination:Right hip AP, lateral, AP pelvis 3 views Technique: Hip AP lateral, AP pelvis, 3 views Exam date and time:June 15, 2024 1419 hrs. Indications: Operative reduction internal fixation right hip fracture May 03, 2024 Findings: Healed fracture right hip with satisfactory alignment Orthopedic hardware satisfactory position Prominent osteopenia Advanced narrowing right hip joint Left hip bipolar hemiarthroplasty with satisfactory alignment Impression: Healed fracture right hip with satisfactory alignment.
== END 2024-06-15 14:59 | disposition home or self-care (01) ==
LOC: HODSRG 13:33
PROVIDERS: Supervising Provider Orthopaedic Surgery Adult Reconstructive Orthopaedic Surgery; Visit Provider Orthopaedic Surgery Adult Reconstructive Orthopaedic Surgery
DX: S72.141D Displaced intertrochanteric fracture of right femur, subsequent encounter for closed fracture with routine healing (principal); X58.XXXD Exposure to other specified factors, subsequent encounter; I10 Essential (primary) hypertension; E78.00 Pure hypercholesterolemia, unspecified; Z86.73 Personal history of transient ischemic attack (TIA), and cerebral infarction without residual deficits
CPT/HCPCS: 73502; 99213; G0463

== ENCOUNTER 2024-10-23 10:10 | Day surgery (SDC) | payer MEDICARE, OTHER, MEDICAID, SELFPAY ==
--- NOTE | 2024-10-20 07:00 | EKG_ITS ---
[facility] (Formerly [facility]) Test Date: 2024-10-20 Pat Name: KARAN JACINTO Department: Room: - Gender: Female Banking Management Consulting Manager: CRISTY : 1935 Requested By: Ezekiel Vizcarra Order Number: [id number] Reading MD: Ezekiel Vizcarra Measurements Intervals Byars Rate: 60 P: 101 IA: 178 QRS: 4 QRSD: 90 T: 34 QT: 432 QTc: 435 Interpretive Statements SINUS RHYTHM VOLTAGE CRITERIA FOR LVH [MEETS CRITERIA IN ONE OF: R(aVL), S(V1), R(V5), R(V5/V6)+S(V1)] POSSIBLE SEPTAL MYOCARDIAL INFARCTION , PROBABLY RECENT [30 ms Q WAVE IN V1/V2] ACUTE MN Compared to ECG 05/02/2024 21:19:55 Myocardial infarct finding now present ST (T wave) deviation no longer present /store/S0/[id number]/[id number].pdf
[2024-10-20 10:38] LABS: Basophils # (Auto) 0.1 Thou/mm3 (0.0-0.2); Basophils % (Auto) 1 % (0-2.5); Eosinophils # (Auto) 0.4 Thou/mm3 (0.0-0.5); Eosinophils % (Auto) 10 % (0-10); Hematocrit 38.3 % (36.0-46.0); Hemoglobin 12.4 g/dL (12.0-16.0); Immature Granulocytes Auto 0.01 Thou/mm3 (0.00-0.00); Lymphocytes # (Auto) 0.7 Thou/mm3 (1.0-4.8); Lymphocytes % (Auto) 19 % (10-50); Mean Corpuscular HGB Conc 32.4 g/dl (31.0-37.0); Mean Corpuscular Hemoglobin 30.9 pg (25.0-35.0); Mean Corpuscular Volume 96 fL (80-100); Monocytes # (Auto) 0.2 Thou/mm3 (0.0-0.8); Monocytes % (Auto) 6 % (0-12); Neutrophils # (Auto) 2.4 Thou/mm3 (1.8-7.7); Neutrophils % (Auto) 64 % (37-80); Nucleated Red Blood Cell # 0.00 Thou/mm3 (0.00-0.00); Nucleated Red Blood Cell % 0 /100 WBC (0); Platelet Count 182 Thou/mm3 (140-440); RDW Standard Deviation 50.4 fL (36.4-46.3); Red Blood Count 4.01 Miln/mm3 (4.00-5.20); White Blood Count 3.8 Thou/mm3 (3.6-11.0)
[2024-10-20 10:47] LABS: Anion Gap 9 (7-16); BUN/Creatinine Ratio 19 Ratio (12-20); Blood Urea Nitrogen 15 mg/dL (9-23); Calcium 9.3 mg/dL (8.3-10.6); Carbon Dioxide 29.1 mMol/L (20.0-31.0); Chloride 105 mMol/L (98-107); Creatinine (Component) 0.8 mg/dL (0.6-1.3); Glucose 98 mg/dL (74-106); Osmolality,Calculated 285 (275-295); Potassium 3.9 mMol/L (3.4-5.1); Sodium 143 mMol/L (136-145); eGFR > 60 See Note
[2024-10-20 10:49] LABS: INR 1.0 (0.9-1.3); Partial Thromboplastin Time 25.1 Seconds (22.0-36.0); Prothrombin Time 11.4 Seconds (9.0-12.2)
[2024-10-23] VITALS (11 sets, daily range): BP systolic 121–164; BP diastolic 67–102; PULSE 63–93; RESP 16–27; TEMP 36.4–36.9; O2SAT 93–98; BMI 21.4
--- NOTE | 2024-10-23 13:57 | PC.NURSE ---
1324 patient is awake, alert, breathing unlabored, s/p LHC and RHC procedure, TR band present to right wrist, no bleeding or hematoma noted, gauze and tegaderm present to right groin, no bleeding or hematoma noted. Report received from Sangita VASQUES, patient to recover for 3 hrs and 1hr post TR band removal. 1337 patient is awake, alert, breathing unlabored, dressing to right wrist and right groin dry with no bleeding or hematoma, report given to Harpreet VASQUES
--- NOTE | 2024-10-23 14:55 | ESOP_ITS ---
Cardiac Cath Procedure Procedure Name Date of procedure: 10/23/24 HOUSE COORDINATOR: Ezekiel Vizcarra MD PROCEDURE PERFORMED: 1. Left heart and right heart cardiac catheterization including right, left coronary angiograms and left ventriculogram - CPT 70550 2. Ultrasound-guided access of the right radial artery and right femoral vein - CPT 02797 3. Conscious sedation for 30 minutes - CPT 19963 Procedure Narrative HISTORY AND INDICATIONS: Ms Sykes is a 89 YO F with PMH of HTN, dementia and recently diagnosed severe aortic stenosis, for which she was sent to my office. Patient had ischemic cardiac work up, NST showed abnormal myocardial perfusion study as there is decreased uptake in the inferior segment with stress and improves with rest indicating stress induced ischemia. EF 55%. Normal TID and wall motion. Patient was brought in for an elective cardiac catheterization. Patient did complain of chest pressure when he was in the palpitations and even after he converted to normal sinus rhythm and patient has new onset heart failure hence patient is a candidate for left and right coronary angiograms hence schedule for cardiac catheterization today. Discussed with patient risks, benefits and alternatives of performing left with coronary angiogram including the risks of bleeding, heart rate, stroke and with the procedure. Patient understands the risks and is willing to undergo the procedure. Consent provided for the same. H&P updated and consent was signed prior to the procedure DESCRIPTION OF PROCEDURE: The patient was brought to the cardiac catheterization lab and all asceptic precautions were followed. Patient was given 1 Mg of Versed and 50 mcg of fentanyl for moderate conscious sedation. 2 mL of lidocaine was given in the right wrist. The right radial artery was accessed via the ultrasound guidance as well as micropuncture technique. A 6 Turkmen glide sheath was introduced. A 10 ml of lidocaine was then injected in the right femoral area and right femoral vein vein was accessed with ultrasound guidance and micropuncture shantelle hnique. A 7 german femoral sheath was used. A 7 Turkmen [place] catheter was used with a [place] wire to direct into the right atrium with inflated balloon. Serial measurements of right atrium, right ventricle, pulmonary artery and pulmonary capillary wedge were taken severely with normal respiration as well as at end expiration as noted below. We then used a 6 Turkmen TIG 4 catheter to perform the left and right coronary angiogram as well as a left ventriculogram which showed the following findings. [facility] findings: 1. Left ventricular ejection fraction was 55-60% without any regional wall motion abnormalities. LVEDP was 22 mmHg. There was significant transvalvular aortic gradient indicating severe / critical Aortic Stenosis with YANCY 0.31 sq cm and mean gradient of 65 mmHg. 2. Right dominant circulation left main artery is a large-caliber vessel with minimal stenosis. 3. LAD is a large sized artery with moderate stenosis, there is 50-60% stenosis of proximal segment and mid segment. A medium size diagonal with mild 20-30% disease. 4. LCx is a large sized artery with mild stenosis of 20-30% in proximal segment. Medium OM1 and small OM2 without any significant disease. 5. RCA is a large artery with 30-40% stenosis of ostial RCA segment. There was no significant gradient with the engagement of the diagnostic catheter systolic pressures were still between 150-160 mmHg. Large RPDA with mild disease. Small RPL without any significant disease. RHC findings: Mean right atrial pressure was 2 mmHg. Right Ventricle pressure was 20/3 mmHg. Pulmonary artery pressure was 25/7 mmHg with a mean of 15 mmHg. Mean pulmonary capillary wedge pressure was 5 mmHg. TPG was 11 mmHg Pulmonary artery PA saturation was 70.5%.? Arterial saturation was 95.3% on room air. Cardiac output was 3.19 L/min and cardiac index was normal at 2.07 L/min/m? A radial band was used to achieve the hemostasis of the right radial artery access and manual hemostasis for the right femoral vein. Patient will be monitored in the cardiac rn resource nurse for the next 2 to 3 hours and will be sent to the telemetry floor. Patient recommended to follow-up with me in the office within 7 days after discharge. Complications: None Specimens: None Blood loss: Estimated 5 ml Summary/findings: 1. Severe Aortic Stenosis: LHC showed moderate CAD with 50-60% stenosis of proximal to mid LAD, 20-30% stenosis of proximal LCx, 30 to 40% stenosis of ostial RCA, mild disease of the diagonals and RPDA. Rest of coronaries without any angiographically significant obstruction and few luminal irregularities. 2. LVEF was 55-60%. LVEDP was elevated 22 mmHg 3. Significant transaortic gradient noted with a mean of 65 mmHg with aortic valve area of 0.31 cm? indicating severe/critical aortic stenosis 4. Normal right heart pressures with mean RA of 2 mm hg, mean PA of 15 mmhg and mean PCWP at 4 mm hg. 5. Mildly decreased cardiac output at 3.9 mL/min and cardiac index of 2.07 L/min/m?. Recommendations: 1. Patient with severe/critical aortic stenosis as described above and will need further workup. Patient will be scheduled for a thoracic surgery consult for SAVR versus TAVR discussion as well as a CT TAVR as patient will need an aortic valve replacement 2. Recommend aggressive medical management and aggressive risk factor modification for the moderate CAD with aspirin 81 mg once daily along with beta- toya and high intensity statin 3. Patient recommended not to lift more than 5 lbs for the next 7-10 days and follow up with me in my office in 7 days. Ezekiel Vizcarra MD Interventional Cardiology.
[2024-10-24 10:13] LABS: O2 Saturation (Cath Lab) 95 % (91-98); Puncture Site Aortic
[2024-10-24 10:15] LABS: O2 Saturation (Cath Lab) 71 % (91-98); Puncture Site Pulmonary Artery
== END 2024-10-23 16:00 | disposition home or self-care (01) ==
PROVIDERS: PCP Family Medicine; Referring Provider Internal Medicine Cardiovascular Disease; Visit Provider Internal Medicine Cardiovascular Disease
PROC: (CPT 93460; principal; 2024-10-23 11:30)
DX: I35.0 Nonrheumatic aortic (valve) stenosis (principal); R94.39 Abnormal result of other cardiovascular function study; I50.32 Chronic diastolic (congestive) heart failure; I11.0 Hypertensive heart disease with heart failure; M15.9 Polyosteoarthritis, unspecified; K76.7 Hepatorenal syndrome; D63.8 Anemia in other chronic diseases classified elsewhere; Z01.810 Encounter for preprocedural cardiovascular examination; I25.2 Old myocardial infarction; F03.90 Unspecified dementia, unspecified severity, without behavioral disturbance, psychotic disturbance, mood disturbance, and anxiety
CPT/HCPCS: 93460; 36415; 80048; 82810; 85025; 85610; 85730; 93005; 99152; 99153; A4649; C1726; C1769; C1894; J0168; J0360; J0461; J1643; J2250; J2312; J2371; J3010; J3490; Q9967

== ENCOUNTER → 2024-12-28 | Outpatient (CLI) | payer MEDICARE, OTHER, MEDICAID, SELFPAY ==
[2024-12-28 15:20] LABS: Anion Gap 8 (7-16); BUN/Creatinine Ratio 16 Ratio (12-20); Blood Urea Nitrogen 13 mg/dL (9-23); Calcium 9.2 mg/dL (8.3-10.6); Carbon Dioxide 33.0 mMol/L (20.0-31.0); Chloride 101 mMol/L (98-107); Creatinine (Component) 0.8 mg/dL (0.6-1.3); Glucose 98 mg/dL (74-106); Osmolality,Calculated 283 (275-295); Potassium 4.5 mMol/L (3.4-5.1); Sodium 142 mMol/L (136-145); eGFR > 60 See Note
== END | disposition home or self-care (01) ==
LOC: COPL 14:03
PROVIDERS: PCP Family Medicine; Referring Provider Internal Medicine Cardiovascular Disease; Visit Provider Internal Medicine Cardiovascular Disease
DX: I35.0 Nonrheumatic aortic (valve) stenosis (principal); I60.32 Nontraumatic subarachnoid hemorrhage from left posterior communicating artery; K76.7 Hepatorenal syndrome; I10 Essential (primary) hypertension
CPT/HCPCS: 36415; 80048